=== PATIENT | male | born 1980 | race Caucasian/White ===

== ENCOUNTER 2020-02-06 01:46 | Outpatient (CLI) | payer BC, SELFPAY ==
[2020-02-06 18:20] LABS: SARS-CoV-2 RNA PCR Negative
== END 2020-02-06 01:47 | disposition home or self-care (01) ==
LOC: ANHCOVIDDT 01:46
PROVIDERS: PCP Internal Medicine; Visit Provider Surgery
DX: Z01.812 Encounter for preprocedural laboratory examination (principal); Z11.59 Encounter for screening for other viral diseases
CPT/HCPCS: 87635; C9803; U0003

== ENCOUNTER 2020-02-08 02:10 | Day surgery (SDC) | payer BC, SELFPAY ==
[2020-01-24 15:27] VITALS: BMI 36.1
--- NOTE | 2020-02-08 07:25 | WPDHPUPDATE1 ---
History and Physical Update Update Date/Time: 02/08/20 07:25 History and Physical has been reviewed, including an updated exam of the patient. There are NO changes in the patient's condition. Risks, benefits, and alternatives have been discussed and questions answered. Patient agrees to proceed with procedure.
[2020-02-08 08:19] VITALS: BP 145/88; PULSE 95; RESP 16; TEMP 37.1; O2SAT 100
[2020-02-08] MEDS: LACTATED RINGERS 1,000 ML 30 ML IV CONT ×2 (08:35→11:47)
[2020-02-08] MEDS: KETOROLAC 15 MG/ML VIAL (*BKC) IV PUSH (08:45)
[2020-02-08] MEDS: ACETAMINOPHEN 500 MG TABLET 1000 MG PO (08:45)
--- NOTE | 2020-02-08 08:49 | WPDANESEPPF ---
Anes - Initial Pre Proc Eval Procedure: Operation Date: 02/08/20 10:00 Proposed Procedures p Repair Umbilical Hernia With Mesh - Darrius Dupont MD Date/Time: 02/08/20 08:49 Surgeon: Darrius Dupont MD Pre Op Diagnosis: Umbilical Hernia Patient Data Age: 39 Gender: M Height: 6 ft 5 in Weight: 140 kg Last Vital Signs Temp 37.1 C 02/08/20 08:19 Pulse 95 02/08/20 08:19 Resp 16 02/08/20 08:19 BP 145/88 H 02/08/20 08:19 Pulse Ox 100 02/08/20 08:19 Allergies Allergy/AdvReac Type Severity Reaction Status Date / Time No Known Allergies Allergy Verified 01/24/20 15:28 Home Medications Medication Instructions Recorded Confirmed Type omeprazole 20 mg capsule,delayed 20 mg PO DAILY #90 cap 09/26/19 01/24/20 Rx release cetirizine 5 mg PO DAILY PRN 01/24/20 01/24/20 History Patient hx anesthesia problems: none Family hx anesthesia problems: none PMFSH Past Medical History Medical History GERD (gastroesophageal reflux disease) Surgical History Surgical History History of removal of skin mole [place] teeth extracted Family History Family History Mother Arthritis Grandparent , Age 81 Alzheimer disease Other Colon cancer Social History Social History Smoking packs per day: 0.75 Smoking cigarettes per day: 15.0 Years smoked: 8 Smoking pack-years: 6.00 Smoking status: Former smoker Tobacco type: cigarettes Additional smoking assessment comments: 16 YEARS AGO Alcohol intake: current Drinks per week: 28 Substance use: never Additional occupation/education comments: [employer] Spiritual care concerns: No Anes - Eval Final PreProcedure Day of Procedure 02/08/20 08:49 Patient weight: obese Heart: regular rate and rhythm Lungs: clear to auscultation Airway: Mallampati scale class 1 Neurological: alert and oriented Last oral intake: >/= 8 hours ASA classification: II Emergent: no Anesthetic plan: proceed Anesthesia type and monitoring: general GIVS and standard monitoring Informed Consent: The patient's anesthetic plan and its attendant risks and benefits were discussed with the patient/family/POA. Questions were solicited and answers provided to the satisfaction of the patient/family/POA.
--- NOTE | 2020-02-08 09:55 | P.OP_ITS ---
Procedure Note - Detailed Date of procedure: 02/08/20 Pre-op diagnosis: Umbilical Hernia Umbilical hernia Post-op diagnosis: same Procedure performed: Umbilical hernia repair with 6.6 cm Parietex underlay mesh Description of procedure: Patient was taken to the operating room and IV sedation was administered. Prep and drape was carried out. The proposed incision along the upper margin of the umbilicus was marked on the skin. Local anesthetic was infiltrated into the skin and the deeper subcutaneous tissues. Incision was made and dissection was carried down through the skin and to the hernia sac. The sac was then dissected free from the umbilical skin and the surrounding subcutaneous tissues. It was dissected down to its neck. Additional local anesthetic was infiltrated into the neck and the fascia surrounding the neck of the hernia sac. The sac was then amputated at its neck. The subcutaneous was undermined around the hernia defect. Additional local was infiltrated around the fascia. I placed a finger inside the hernia defect and checked for any abdominal wall adhesions in the area. None were found. No other hernias were noted. A 6.6 cm Parietex [place] was chosen. It was folded and placed in the defect. Once it symmetrically covered the defect, I placed cranial and caudal transfascial sutures of 0 Ethibond. These sutures were placed in such a fashion that, when tied, they would advance the edges of the hernia defect towards 1 another. These sutures were tied and had the desired effect. I also placed right and left lateral 0 Ethibond transfascial sutures to secure the mesh to the anterior abdominal wall in this dimension. I then closed the hernia defect with [id number] mattress sutures of 0 Ethibond. The repair looked quite satisfactory. I then infiltrated additional local all around the areas of the repair. The umbilical skin was tacked to the fascia with 3 0 Vicryl suture. The subcutaneous was closed with 3 0 Vicryl. Subcuticular interrupted 4 O Vicryl skin stitches were placed. The skin was then closed with running 4 0 Monocryl subcuticular suture. Wound was dressed with Exofin surgical adhesive. The patient was awakened and taken to recovery in good condition. Counts were correct x2. Implants: 6.6 cm Parietex hernia mesh Anesthesia: MAC and local (0.5% Marcaine with Exparel) Surgeon: Darrius Dupont MD Yarn Wrapper: Mei RachaelRadha Valladares Estimated blood loss (mL): 5 Drains: No Packing: No Pathology: none sent Complications: None Condition: stable Disposition: same day Findings: 20 millimeter hernia defect
[2020-02-08] MEDS: ceFAZolin 3 GM/D5W 100 ML 100 ML IVPB (10:31)
[2020-02-08 11:47] VITALS: BP 130/77; PULSE 82; RESP 16; TEMP 36.1; O2SAT 97
[2020-02-08 12:15] VITALS: BP 136/76; PULSE 79; RESP 16; O2SAT 99
[2020-02-08 12:40] VITALS: BP 142/83; PULSE 59; RESP 16
== END 2020-02-08 12:50 | disposition home or self-care (01) ==
PROVIDERS: PCP Internal Medicine; Visit Provider Surgery
PROC: (CPT 49585; principal; 2020-02-08 10:00)
DX: K42.9 Umbilical hernia without obstruction or gangrene (principal); K21.9 Gastro-esophageal reflux disease without esophagitis; Z87.891 Personal history of nicotine dependence; E66.9 Obesity, unspecified; Z68.36 Body mass index [BMI] 36.0-36.9, adult
CPT/HCPCS: 49585; A9270; C1781; C9290; J0690; J1885; J2250; J2405; J2704; J3010; J7120

== ENCOUNTER 2021-01-31 14:15 | Emergency (ER) | payer BC, SELFPAY ==
--- NOTE | ~2021-01-31 | CT_ITS ---
EXAMINATION: CTA chest PE protocol DATE: 01/31/2021 18:19 INDICATION: Dyspnea. Palpitations. TECHNIQUE: Computed tomography angiography (CTA) of the chest was performed with 100 mL Omnipaque-350 intravenous contrast timed to evaluate the pulmonary arteries. Coronal maximum intensity projection 3D-reconstructions were created by the technologist. Automated exposure control and iterative reconst ruction technique were employed. The dose-length product was 1106.50 mGy-cm. COMPARISON: None. FINDINGS: The lungs demonstrate mild atelectasis. No pleural effusion. The heart size is normal. Ther e are coronary artery calcifications. No pericardial effusion. There is no pulmonary embolus. There i s mild thoracic spondylosis. IMPRESSION: 1. No pulmonary embolus. Reviewed, dictated and finalized at location A. IMPRESSION: 1. No pulmonary embolus.
--- NOTE | ~2021-01-31 | XR_ITS ---
EXAMINATION: XR chest 2V DATE: 01/31/2021 14:36 INDICATION: Anterior left-sided chest pain and shortness of breath TECHNIQUE: PA and lateral views of the chest were obtained. COMPARISON: None FINDINGS: The lungs are clear with no focal airspace opacities, pulmonary edema, pleural effusion or pneumothor ax. The cardiomediastinal silhouette is normal. Thoracic spondylosis with mild anterior wedging of a midthoracic vertebral body, likely T7. IMPRESSION: 1. No acute cardiopulmonary disease. Reviewed, dictated and finalized at location A.
--- NOTE | 2021-01-31 14:21 | ECG_ITS ---
Measurements Intervals [place] Rate: 93 P: -2 ID: 104 QRS: 14 QRSD: 92 T: 9 QT: 332 QTc: 413 Interpretive Statements SINUS RHYTHM WITH SHORT ID INTERVAL EARLY PRECORDIAL R/S TRANSITION MINIMAL Q WAVES- HIGH LATERAL LEADS BORDERLINE T WAVE ABNORMALITY- INFERIOR LEADS BASELINE ARTIFACT- V4 BORDERLINE ECG Electronically Signed On 01-31-2021 14:37:31 CDT by Pedro Lloyd D.O.
[2021-01-31 14:44] VITALS: BP 169/112; PULSE 96; RESP 18; TEMP 37.1; O2SAT 99
[2021-01-31 15:08] LABS: Basophils Percent Auto 0.6 % (0.2-1.2); Eosinophils Absolute Auto 0.1 K/mm3 (0-0.3); Hematocrit 42.9 % (42.0-52.0); Hemoglobin 14.7 g/dL (14.0-18.0); Immature Granulocyte Absolute 0.04 K/mm3 (0.00-0.031); Immature Granulocyte Percent A 0.6 % (0-0.5); Lymphocytes Absolute Auto 1.94 K/mm3 (0.9-3.2); Mean Corpuscular HGB Conc 34.3 g/dl (32-36); Mean Corpuscular Hemoglobin 32.8 pg (26-34); Mean Corpuscular Volume 95.8 fl (80-100); Mean Platelet Volume 8.8 fl (7.4-10.4); Monocytes Absolute Auto 0.6 K/mm3 (0.1-0.6); Monocytes Percent Auto 7.8 % (2.6-8.5); Neutrophils Absolute Auto 4.5 K/mm3 (1.3-6.7); Platelet Count Result 272 k/mm3 (150-375); Red Blood Count 4.48 M/mm3 (4.6-6.20); Red Cell Distribution Width 11.9 % (11.5-14.5); White Blood Count 7.2 K/mm3 (4.5-10.0)
[2021-01-31 15:18] LABS: Anion Gap 7 mmol/L (8-16); Blood Urea Nitrogen 13 mg/dL (9-20); Calcium 9.3 mg/dL (8.4-10.2); Carbon Dioxide 27 mmol/L (22-30); Chloride 100 mmol/L (98-107); Estimated CRCL calculation 138 ml/min; Estimated Glomerular Filt Rate > 60; Glucose 102 mg/dL (65-110); Potassium 4.3 mmol/L (3.4-5.0); Sodium 134 mmol/L (137-145)
[2021-01-31 15:29] LABS: INR 0.9; Prothrombin Time 12.5 Seconds (11.1-14.7); Troponin I < 0.012 ng/mL (0.000-0.034)
[2021-01-31 15:30] LABS: Partial Thromboplastin Time 23.7 SECONDS (22.3-36.8)
--- NOTE | 2021-01-31 17:12 | ED.ARRPALP ---
HPI - Arrhythmia/Palpitations General Chief Complaint: Arrhythmia/Palpitations Stated Complaint: chest pressure Time Seen by Provider: 01/31/21 17:11 Source: patient and family Mode of arrival: ambulatory Limitations: no limitations History of Present Illness HPI narrative: Patient is a 40-year-old male who presents for evaluation of intermittent chest pain and palpitations. Patient states he has had symptoms over the past several days, states that he was suddenly experience palpitations, heaviness over his chest, back with radiation to both shoulders and both sides of his neck. With associated nausea and diaphoresis. Patient reports mild shortness of breath with these episodes as well. States they last for few minutes before resolving on their own. Patient is a previous smoker 15 years ago. No family history of sudden cardiac . Cardiac history notable for patient's grandfather who had a heart attack in his seventies. No siblings or parents with coronary artery disease per patient or his mother who is at bedside. Patient denies any recent viral illnesses. No recent fever, cough or cold symptoms. Patient states he presumes he may have had Covid several months ago as his mother, father, aunt all tested positive, but he tested quite late with his symptoms and had a negative test. He is vaccinated with a Victor Manuel [employer] Victor Manuel vaccine. Patient denies leg swelling or calf pain. He denies recent car or air travel. Patient states that he takes a daily aspirin because he read that this was good for him. He does not currently follow with a primary care provider. He does report an unintentional 15 pound weight gain over the past 2 weeks. Related Data Allergies Allergy/AdvReac Type Severity Reaction Status Date / Time No Known Allergies Allergy Verified 01/31/21 17:13 Review of Systems Review of Systems: CONSTITUTIONAL: Denies fever, chills, reports feeling sweaty EYES: Denies visual changes, redness, or discharge. ENT: Denies rhinorrhea, congestion, sore throat, or otalgia. CARDIOVASCULAR: Reports chest heaviness and palpitations RESPIRATORY: Denies cough, reports intermittent dyspnea GASTROINTESTINAL: Denies abdominal pain, nausea, vomiting, or diarrhea. GENITOURINARY: Denies dysuria or hematuria. SKIN: Denies rash or itching. MUSCULOSKELETAL: Denies back pain, joint pain, or myalgia. NEUROLOGIC: Denies headache, numbness, or weakness. [facility] Past Medical History Medical History (Updated 01/31/21 @ 18:57 by Lucy Umaña MD) GERD (gastroesophageal reflux disease) Surgical History Surgical History H/O umbilical hernia repair Umbilical hernia repair with 6.6cm Paritex underlay mesh 02/08/2020 History of removal of skin mole [place] teeth extracted Family History Family History Mother Arthritis Grandparent , Age 81 Alzheimer disease Other Colon cancer Social History Social History Smoking packs per day: 0.75 Smoking cigarettes per day: 15.0 Years smoked: 8 Smoking pack-years: 6.00 Smoking status: Former smoker Tobacco type: cigarettes Additional smoking assessment comments: 16 YEARS AGO Alcohol intake: current Drinks per week: 28 Alcohol use details: drinks 4 beers a day Substance use: never Additional occupation/education comments: [employer] Gender identity (if verbalized by the patient): Male Spiritual care concerns: No Exam Narrative: GENERAL: Awake, alert, conversant HEAD: Normocephalic, atraumatic. EYES: PERRLA and EOMI. ENT: Nares clear, no rhinorrhea or epistaxis. Mucous membranes moist. NECK: Supple. CHEST: No respiratory distress, breathing even and non labored, no chest wall tenderness HEART: Regular rate, sinus rhythm ABDOMEN:Non distended, non tender EXTREMITIES: Normal range of srinivasa
--- NOTE | 2021-01-31 17:25 | ECG_ITS ---
Measurements Intervals [place] Rate: 84 P: 12 MA: 123 QRS: 17 QRSD: 96 T: 15 QT: 347 QTc: 410 Interpretive Statements SINUS RHYTHM EARLY PRECORDIAL R/S TRANSITION BASELINE ARTIFACT- II, AVF, V1, V3-V6 BORDERLINE ECG Electronically Signed On 01-31-2021 19:54:14 CDT by Pedro Lloyd D.O.
[2021-01-31] MEDS: ASPIRIN 81 MG CHEWABLE TABLET 324 MG PO (17:35)
--- NOTE | 2021-01-31 17:48 | ECG_ITS ---
Measurements Intervals [place] Rate: 79 P: 10 ND: 121 QRS: 15 QRSD: 99 T: 9 QT: 352 QTc: 404 Interpretive Statements SINUS RHYTHM LEAD V3 MISPLACEMENT EARLY PRECORDIAL R/S TRANSITION BASELINE ARTIFACT- V3-V6 BORDERLINE ECG Electronically Signed On 01-31-2021 19:56:18 CDT by Pedro Lloyd D.O.
[2021-01-31 17:49] LABS: Troponin I < 0.012 ng/mL (0.000-0.034)
[2021-01-31 19:01] VITALS: BP 152/101; PULSE 96; RESP 16; O2SAT 100
[2021-01-31 19:18] VITALS: BP 144/107; PULSE 94; RESP 16; O2SAT 98
== END 2021-01-31 19:17 | disposition home or self-care (01) ==
PROVIDERS: General Practice; Emergency Provider Emergency Medicine; PCP Internal Medicine
DX: R07.89 Other chest pain (principal); R00.2 Palpitations; I10 Essential (primary) hypertension; K21.9 Gastro-esophageal reflux disease without esophagitis; Z87.891 Personal history of nicotine dependence; R94.31 Abnormal electrocardiogram [ECG] [EKG]
CPT/HCPCS: 36415; 71046; 71275; 80048; 84443; 84484; 85025; 85610; 85730; 93005; 99284; A9270; Q9967

== ENCOUNTER 2021-05-24 11:22 | Emergency (ER) | payer OTHER, BC, SELFPAY ==
[2021-05-24 11:38] VITALS: BP 139/99; PULSE 95; RESP 20; TEMP 36.8; O2SAT 100
[2021-05-24 11:40] VITALS: BP 139/99; PULSE 95; RESP 20; TEMP 36.8; O2SAT 100
--- NOTE | 2021-05-24 11:48 | ED.GENADULT ---
HPI - General Adult General Chief complaint: Wound/Laceration Stated complaint: CUT CHIN Time Seen by Provider: 05/24/21 11:49 Source: patient Mode of arrival: ambulatory Limitations: no limitations History of Present Illness HPI narrative: 41-year-old male patient presents to the [facility] with complaints of a laceration to the chin. 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 Patient unsure when his last tetanus shot was thinks is been longer than 5 years. Related Data Allergies Allergy/AdvReac Type Severity Reaction Status Date / Time No Known Allergies Allergy Verified 05/24/21 11:38 Review of Systems Review of Systems: CONSTITUTIONAL: Denies fever, chills, or sweats. EYES: Denies visual changes, redness, or discharge. ENT: Denies rhinorrhea, congestion, sore throat, or otalgia. CARDIOVASCULAR: Denies chest pain, palpitations, or edema. RESPIRATORY: Denies cough or dyspnea. GASTROINTESTINAL: Denies abdominal pain, nausea, vomiting, or diarrhea. GENITOURINARY: Denies dysuria or hematuria. SKIN: Denies rash or itching. Positive laceration to the chin MUSCULOSKELETAL: Denies back pain, joint pain, or myalgia. NEUROLOGIC: Denies headache, numbness, or weakness. PSYCHIATRIC: Denies anxiety or depression. [facility] Past Medical History Medical History (Updated 05/24/21 @ 12:31 by MJ Leonardo) GERD (gastroesophageal reflux disease) Surgical History Surgical History H/O umbilical hernia repair Umbilical hernia repair with 6.6cm Paritex underlay mesh 02/08/2020 History of removal of skin mole [place] teeth extracted Family History Family History Mother Arthritis Grandparent , Age 81 Alzheimer disease Other Colon cancer Social History Social History Smoking packs per day: 0.75 Smoking cigarettes per day: 15.0 Years smoked: 8 Smoking pack-years: 6.00 Smoking status: Never smoker Tobacco type: cigarettes Additional smoking assessment comments: 16 YEARS AGO Alcohol intake: current Drinks per week: 28 Alcohol use details: drinks 4 beers a day Substance use: never Additional occupation/education comments: [employer] Gender identity (if verbalized by the patient): Male Spiritual care concerns: No Comments At the time of my signature I agree with nursing past medical history, surgical, social, and family history. There is no relevant family history pertinent to the presenting complaint. Exam Narrative: GENERAL: Well-appearing, well-nourished, and in no acute distress. HEAD: Normocephalic, atraumatic. EYES: PERRLA and EOMI. ENT: Nares clear, no rhinorrhea or epistaxis. Mucous membranes moist. NECK: Supple. No lymphadenopathy CHEST: Clear to auscultation. No respiratory distress. HEART: Regular rate and rhythm. No murmur heard. Normal peripheral pulses. ABDOMEN: Soft, nontender, nondistended, normal active bowel sounds. EXTREMITIES: Normal range of motion. No edema. SKIN: Warm, dry, no rash. Patient has approximately 2.5 cm laceration vertically to the middle of the chin. There is a gaping open wound. No active bleeding at this time. Patient's range of motion of the chin is normal. NEURO: No focal deficits. Alert and oriented x3. Course Vital Signs Vital signs: Vital Signs Temperature 36.8 C 05/24/21 11:38 Pulse Rate 95 05/24/21 11:38 Respiratory Rate 20 05/24/21 11:38 Blood Pressure 139/99 H 05/24/21 11:38 Pulse Oximetry 100 05/24/21 11:38 Temperature 36.8 C 05/24/21 11:40 Pulse Rate 95 05/24/21 11:40 Respiratory Rate 20 05/24/21 11:40 Blood Pressure 139/99 H 05/24/21 11:40 Pulse Oximetry 100 05/24/21 11:40 Vital signs reviewed. The patient has been informed that they may have pre-hypertensi
[2021-05-24] MEDS: TETANUS,DIPHTHERIA,AC PERTUSSIS ADULT (0.5 ML) BOOSTRIX IM (11:55)
== END 2021-05-24 12:32 | disposition home or self-care (01) ==
PROVIDERS: Emergency Provider Nurse Practitioner Family
DX: S01.81XA Laceration without foreign body of other part of head, initial encounter (principal); W22.8XXA Striking against or struck by other objects, initial encounter; Z23 Encounter for immunization; Z87.891 Personal history of nicotine dependence; K21.9 Gastro-esophageal reflux disease without esophagitis
CPT/HCPCS: 12011; 90471; 90715; 99212; G0463

== ENCOUNTER 2021-06-03 10:53 | Emergency (ER) | payer BC, SELFPAY ==
--- NOTE | ~2021-06-03 | XR_ITS ---
EXAMINATION: XR knee LT min 4V DATE: 06/03/2021 11:27 INDICATION: Left knee injury and pain. TECHNIQUE: 4 views of left knee were obtained. COMPARISON: None. FINDINGS: Bone alignment is normal. No fracture. There is mild tricompartmental osteoarthritis charac terized by tiny marginal osteophytes. No joint space narrowing. No knee joint effusion. IMPRESSION: 1. Mild left knee osteoarthritis. Reviewed, dictated and finalized at location A. CH CREDIT COUNSELOR
[2021-06-03 11:03] VITALS: BP 152/96; PULSE 103; RESP 18; TEMP 36.8; O2SAT 99
--- NOTE | 2021-06-03 11:08 | ED.LOWEXIN ---
HPI - Extremity Injury (Lower) General Chief Complaint: Extremity Injury, Lower Stated Complaint: Left Knee Pain Time Seen by Provider: 06/03/21 11:10 Source: patient, RN notes reviewed and old records reviewed Mode of arrival: ambulatory Limitations: no limitations History of Present Illness HPI Narrative: 41-year-old male presents to the [facility] with complaints of left knee pain for about 1 1/2 weeks. Patient states he fell but a week and a half ago and continues to have pain in the medial aspect left knee. Has full range of motion. No bruising or swelling noted. Tender along the medial joint. Denies any other symptoms. Related Data Allergies Allergy/AdvReac Type Severity Reaction Status Date / Time No Known Allergies Allergy Verified 06/03/21 11:37 Review of Systems Review of Systems: All systems reviewed & are unremarkable except as noted in HPI and below Constitutional: Constitutional: Reports no additional constitutional complaints, Denies chills and Denies fever(s) Eyes: Eyes: Reports no additional eye complaints ENT: Reports system reviewed and no additional complaints, except as documented Cardiovascular: Cardiovascular: Reports no additional cardiovascular complaints and Denies chest pain Respiratory: Respiratory: Reports no additional respiratory complaints Musculoskeletal: Musculoskeletal: Reports as per HPI and Reports arthralgias (Left knee) Comments: Left knee medial aspect Integumentary/Breasts: Skin/Breast: Reports system reviewed and no additional complaints, except as docu Neurologic: Reports system reviewed and no additional complaints, except as documented Psychiatric: Psychiatric: Reports no additional psychiatric complaints Allergic/Immunologic: Allergic/Immunologic: Reports no additional allergic/immunologic complaints PMFSH Past Medical History Medical History (Updated 06/03/21 @ 11:41 by Ashley Rm) GERD (gastroesophageal reflux disease) Surgical History Surgical History H/O umbilical hernia repair Umbilical hernia repair with 6.6cm Paritex underlay mesh 02/08/2020 History of removal of skin mole [place] teeth extracted Family History Family History Mother Arthritis Grandparent , Age 81 Alzheimer disease Other Colon cancer Social History Social History Smoking packs per day: 0.75 Smoking cigarettes per day: 15.0 Years smoked: 8 Smoking pack-years: 6.00 Smoking status: Never smoker Tobacco type: cigarettes Additional smoking assessment comments: 16 YEARS AGO Alcohol intake: current Drinks per week: 28 Alcohol use details: drinks 4 beers a day Substance use: never Additional occupation/education comments: automotive tech Gender identity (if verbalized by the patient): Male Spiritual care concerns: No Comments At the time of my signature, I reviewed and agree with the nursing past medical, surgical, social, and family history. There is no relevant family history pertinent to the patient complaint. Exam Const: General: healthy appearing, no acute distress and alert Nutritional Appearance: well nourished and obese Orientation/consciousness: patient oriented x3 Limitations: no limitations HENMT: Head: normal to inspection Ears: external ears normal Eyes: Pupils: Equal, round and reactive pupils present Neck: Neck: normal visual inspection, no lymphadenopathy and no meningeal signs Chest: Chest palpation & inspection: normal inspection of the chest Resp: Effort & Inspection: normal respiratory effort Cardio: Rate: regular rate Rhythm: regular rhythm Back/Spine/Pelvis: Back: no CVA tenderness Skin: General skin exam: normal color Rashes: no rashes Wounds: no wounds Neuro: General: patient oriented x3, moves all extremities, no meningeal signs and n
== END 2021-06-03 11:50 | disposition home or self-care (01) ==
PROVIDERS: Emergency Provider Nurse Practitioner
DX: S89.92XA Unspecified injury of left lower leg, initial encounter (principal); F17.210 Nicotine dependence, cigarettes, uncomplicated; W19.XXXA Unspecified fall, initial encounter
CPT/HCPCS: 73564; 99213; G0463

== ENCOUNTER 2021-12-27 17:17 | Emergency (ER) | payer OTHER, SELFPAY ==
[2021-12-27 17:44] VITALS: BP 141/90; PULSE 99; RESP 16; TEMP 36.7; O2SAT 99
[2021-12-27] MEDS: KETOROLAC 30 MG/ML VIAL (*BKC) IV PUSH (21:34)
[2021-12-27] MEDS: SODIUM CHLORIDE 0.9% IV 1,000 ML 999 ML IV CONT (21:34)
[2021-12-27] MEDS: diphenhydrAMINE HCl INJ 50 MG/ML VIAL 25 MG IV PUSH (21:35)
[2021-12-27] MEDS: METOCLOPRAMIDE HCL INJ 10 MG/2 ML VIAL IV PUSH (21:39)
--- NOTE | 2021-12-27 22:31 | ED.HA ---
HPI - Headache General Chief Complaint: Headache Stated Complaint: headache x 2 day Time Seen by Provider: 12/27/21 19:26 History of Present Illness HPI Narrative: Patient is a 41-year-old male who presents ER with headache. Left-sided. Throbbing. Located in the parietal region. Steadily worsening over the last 2 days. No fevers or chills or sweats. No sinus congestion or sore throat or productive cough. No trauma. Denies any numbness or weakness or tingling to the arms or legs. Has some chronic tingling in his right arm due to cubital tunnel syndrome. Endorses some photophobia. No photophobia. Has history of headaches in the past but no formal diagnosis of migraine. Related Data Allergies Allergy/AdvReac Type Severity Reaction Status Date / Time No Known Allergies Allergy Verified 12/16/21 09:43 Review of Systems Review of Systems: All systems reviewed & are unremarkable except as noted in HPI and below Constitutional: Constitutional: Denies chills and Denies fever(s) Eyes: Eyes: Denies change in vision ENT: Denies nasal congestion and Denies sore throat Cardiovascular: Cardiovascular: Denies chest pain and Denies radiating jaw, neck or arm pain Gastrointestinal: Gastrointestinal: Denies abdominal pain, Denies nausea and Denies vomiting Neurologic: Denies syncope, Reports headache(s), Denies focal weakness and Denies numbness PMFSH Past Medical History Medical History (Updated 12/27/21 @ 22:33 by Shyam Crawford MD) GERD (gastroesophageal reflux disease) Surgical History Surgical History H/O umbilical hernia repair Umbilical hernia repair with 6.6cm Paritex underlay mesh 02/08/2020 History of removal of skin mole [place] teeth extracted Family History Family History Mother Arthritis Grandparent , Age 81 Alzheimer disease Other Colon cancer Social History Social History Smoking packs per day: 0.75 Smoking cigarettes per day: 15.0 Years smoked: 8 Smoking pack-years: 6.00 Smoking status: Never smoker Tobacco type: cigarettes Additional smoking assessment comments: 16 YEARS AGO Alcohol intake: current Drinks per week: 28 Alcohol use details: drinks 4 beers a day Substance use: never Additional occupation/education comments: automotive tech Gender identity (if verbalized by the patient): Male Spiritual care concerns: No Exam Narrative: GENERAL: Well-appearing, well-nourished, and in no acute distress. HEAD: Normocephalic, atraumatic. CHEST: Clear to auscultation. No respiratory distress. HEART: Regular rate and rhythm. Normal peripheral pulses. EXTREMITIES: Normal range of motion. No edema.-Ambulatory without issue. SKIN: Warm, dry, no rash. NEURO: Alert and oriented x3. PSYCH: Normal mood and affect. Course Course Emergency Course: Patient resting comfortably. Improved with Reglan/Benadryl/Toradol/fluids. No thunderclap component, no neurologic deficit. Do not feel patient needs a CT scan. Not concerning for meningitis. Vital Signs Vital signs: Vital Signs Temperature 98.1 F 12/27/21 17:44 Pulse Rate 99 12/27/21 17:44 Respiratory Rate 16 12/27/21 17:44 Blood Pressure 141/90 H 12/27/21 17:44 Pulse Oximetry 99 12/27/21 17:44 Oxygen Delivery Room Air 12/27/21 17:44 Temperature 98.1 F 12/27/21 17:44 Pulse Rate 99 12/27/21 17:44 Respiratory Rate 16 12/27/21 17:44 Blood Pressure 141/90 H 12/27/21 17:44 Pulse Oximetry 99 12/27/21 17:44 Oxygen Delivery Room Air 12/27/21 17:44 Discharge Plan Discharge Clinical Impression: Headache Patient Disposition: Home, Self-Care Condition: Stable Instructions: Tension Headache (ED) Additional Instructions: Return the ER if you have fever over 100.4 ?F, you have focal wea
[2021-12-27 22:58] VITALS: BP 138/82; PULSE 92; RESP 16; O2SAT 100
== END 2021-12-27 23:02 | disposition home or self-care (01) ==
PROVIDERS: Emergency Provider Emergency Medicine; PCP Family Medicine
DX: R51.9 Headache, unspecified (principal)
CPT/HCPCS: 96361; 96374; 96375; 99284; J1200; J1885; J2765; J7030

== ENCOUNTER → 2022-08-26 11:51 | Outpatient (CLI) | payer OTHER, SELFPAY ==
--- NOTE | ~2022-08-26 | XR_ITS ---
Cervical Spine: AP and open-mouth views, and and lateral views with neutral, flexion, and extension p ositioning Clinical History: Pain Findings: The normal lordotic curve is maintained. The vertebral bodies and posterior elements appea r intact. No instability seen on flexion or extension. The intervertebral disc spaces are well mainta ined. Pre-vertebral soft tissues are unremarkable. Impression: No significant abnormality is seen. Reviewed, dictated and finalized at location M. BING ENGINEERING DRAFTSPERSON Impression: No significant abnormality is seen.
== END ==
PROVIDERS: PCP Family Medicine; Visit Provider Family Medicine
DX: M54.2 Cervicalgia (principal)
CPT/HCPCS: 72050

== ENCOUNTER 2022-08-26 12:36 | Outpatient (CLI) | payer OTHER, SELFPAY ==
[2022-08-26 19:28] LABS: Alanine Aminotransferase 36 U/L (6-50); Albumin Level 4.8 g/dL (3.5-5.1); Alkaline Phosphatase 61 U/L (38-126); Anion Gap 8 mmol/L (8-16); Aspartate Amino Transferase 66 U/L (17-59); Bilirubin,Total 0.9 mg/dL (0.2-1.3); Blood Urea Nitrogen 20 mg/dL (9-20); Calcium 9.1 mg/dL (8.4-10.2); Carbon Dioxide 28 mmol/L (22-30); Chloride 99 mmol/L (98-107); Cholesterol 217 mg/dL (0-200); Estimated Glomerular Filt Rate > 60; Glucose 95 mg/dL (65-110); HDL Direct 58 mg/dL; LDL Cholesterol Direct 88 mg/dL; Potassium 4.1 mmol/L (3.4-5.0); Sodium 135 mmol/L (137-145); Triglycerides 335 mg/dL (<150)
== END 2022-08-26 12:37 | disposition home or self-care (01) ==
LOC: ANHGOSHLAB 12:37
PROVIDERS: PCP Family Medicine; Visit Provider Internal Medicine Cardiovascular Disease
DX: E78.00 Pure hypercholesterolemia, unspecified (principal)
CPT/HCPCS: 36415; 80053; 80061

== ENCOUNTER 2022-09-09 13:15 | Emergency (ER) | payer OTHER, SELFPAY ==
[2022-09-09] VITALS (11 sets, daily range): BP systolic 149–165; BP diastolic 91–104; PULSE 91–101; RESP 14–25; TEMP 36.8–37.1; O2SAT 98–100
--- NOTE | ~2022-09-09 | XR_ITS ---
EXAMINATION: XR chest 2V DATE: 09/09/2022 14:55 INDICATION: Palpitations. TECHNIQUE: Frontal and lateral views of the chest were obtained. COMPARISON: Chest 2 views 01/31/2021, chest CT 01/31/2021 FINDINGS: The chest demonstrates clear lungs without pneumonia, pleural effusion, or pneumothorax. Th e heart size is normal. IMPRESSION: 1. No acute cardiopulmonary disease. Reviewed, dictated and finalized at location A.
--- NOTE | 2022-09-09 13:50 | ECG_ITS ---
Measurements Intervals [place] Rate: 95 P: 14 MO: 135 QRS: 12 QRSD: 94 T: 3 QT: 333 QTc: 420 Interpretive Statements SINUS RHYTHM WITH SHORT MO INTERVAL BORDERLINE ST-T WAVE ABNORMALITY- ANTEROSEPTAL/INF LEADS BASELINE WANDER- V1 BORDERLINE ECG COMPARED TO ECG 01/31/2021 17:56:41 ST (T WAVE) DEVIATION NOW PRESENT Electronically Signed On 09-09-2022 14:03:47 CDT by Pedro Lloyd D.O.
[2022-09-09 14:04] LABS: Basophils Percent Auto 0.5 % (0.2-1.2); Eosinophils Absolute Auto 0.1 K/mm3 (0-0.3); Eosinophils Percent Auto 0.6 % (0-4.4); Hematocrit 42.1 % (42.0-52.0); Hemoglobin 14.3 g/dL (14.0-18.0); Immature Granulocyte Absolute 0.02 K/mm3 (0.00-0.031); Immature Granulocyte Percent A 0.3 % (0-0.5); Lymphocytes Absolute Auto 2.38 K/mm3 (0.9-3.2); Lymphocytes Percent Auto 29.8 % (18.3-44.2); Mean Corpuscular Hemoglobin 32.8 pg (26-34); Mean Corpuscular Volume 96.6 fl (80-100); Mean Platelet Volume 8.9 fl (7.4-10.4); Monocytes Absolute Auto 0.4 K/mm3 (0.1-0.6); Monocytes Percent Auto 4.8 % (2.6-8.5); Neutrophils Absolute Auto 5.1 K/mm3 (1.3-6.7); Platelet Count Result 277 k/mm3 (150-375); Red Blood Count 4.36 M/mm3 (4.6-6.20); Red Cell Distribution Width 12.3 % (11.5-14.5)
[2022-09-09 14:15] LABS: INR 1.1; Partial Thromboplastin Time 23.8 SECONDS (22.3-36.8); Prothrombin Time 13.5 Seconds (11.1-14.7)
[2022-09-09 14:16] LABS: Alanine Aminotransferase 45 U/L (6-50); Albumin Level 4.9 g/dL (3.5-5.1); Alkaline Phosphatase 70 U/L (38-126); Anion Gap 11 mmol/L (8-16); Aspartate Amino Transferase 58 U/L (17-59); Bilirubin,Total 0.8 mg/dL (0.2-1.3); Blood Urea Nitrogen 18 mg/dL (9-20); Carbon Dioxide 24 mmol/L (22-30); Chloride 105 mmol/L (98-107); Estimated CRCL calculation 146 ml/min; Estimated Glomerular Filt Rate > 60; Glucose 107 mg/dL (65-110); Lipase 138 U/L (23-300); Potassium 4.1 mmol/L (3.4-5.0); Sodium 140 mmol/L (137-145)
[2022-09-09 14:27] LABS: Troponin I < 0.012 ng/mL (0.000-0.034)
--- NOTE | 2022-09-09 17:37 | PC.NURSE ---
Dr Duong at bedside. No need for protocol aspirin at this time. Pt prefers not to receive IVF at this time.
--- NOTE | 2022-09-09 17:52 | ED.GENADULT ---
HPI - General Adult General Chief complaint: Arrhythmia/Palpitations Stated complaint: Fast heart rate Time Seen by Provider: 09/09/22 17:15 History of Present Illness HPI narrative: 42-year-old male presented to the emergency department for evaluation of rapid heart rate. Patient reports he did have a Holter monitor 1 month ago and did have an episode of SVT. Patient states that over the last few days he has had the sensation of heart palpitations and increased adrenaline. Patient states that he does drink 1/5 of alcohol over a 2-day. Patient states that he did have a monster drink yesterday prior to symptoms starting. Related Data Allergies Allergy/AdvReac Type Severity Reaction Status Date / Time No Known Allergies Allergy Verified 09/09/22 17:24 Review of Systems Review of Systems: All systems reviewed & are unremarkable except as noted in HPI and below PMFSH Past Medical History Medical History (Updated 09/10/22 @ 00:00 by Malissa Gonzalez) GERD (gastroesophageal reflux disease) Surgical History Surgical History H/O umbilical hernia repair Umbilical hernia repair with 6.6cm Paritex underlay mesh 02/08/2020 History of removal of skin mole [place] teeth extracted Family History Family History Mother Arthritis Grandparent , Age 81 Alzheimer disease Other Colon cancer Social History Social History Smoking packs per day: 0.75 Smoking cigarettes per day: 15.0 Years smoked: 8 Smoking pack-years: 6.00 Smoking status: Never smoker Tobacco type: cigarettes Additional smoking assessment comments: 16 YEARS AGO Alcohol intake: current Drinks per week: 28 Alcohol use details: drinks 4 beers a day Substance use: never Lack of Transportation: No Lack of Food: Never True Current Housing: I Have Housing Concerned About Future Housing: No Difficulty Paying Gas/Electric Bills: No Difficulty Paying for Meds: No Currently Unemployed: No Education: Trade/Vocational Certificate Difficulty w/ Childcare or Family Care: No Living arrangements: alone Occupation/Education: occupation Additional occupation/education comments: [employer] Gender identity (if verbalized by the patient): Male Spiritual care concerns: No Exam Narrative: APPEARANCE: Well appearing, no pain, no distress, well-nourished. HEAD: normocephalic, atraumatic. EYES: PERRLA/EOMI, conjunctivae clear. NOSE: Normal no drainage NECK: Supple. No adenopathy, no masses. RESPIRATORY: Airway patent, respirations nonlabored. Clear to auscultation bilaterally, no rales, rhonchi, wheezing. CARDIOVASCULAR: Regular rate and rhythm without murmurs rubs or gallops. Tachycardic was improved upon arrival to the ED. ABDOMINAL: Soft, nontender, nondistended, normal bowel sounds MUSCULOSKELETAL: Moves all extremities. Strength/ROM intact, No edema, No calf tenderness. NEURO: Alert. Cranial nerves II through XII intact. Grossly intact SKIN: Warm, dry. Normal Color Course Course Emergency Course: 42-year-old male presented to the ED with evaluation of heart palpitations. Patient was mildly tachycardic but patient declined IV fluids. Patient was afebrile with no leukocytosis but hemoglobin is stable. Patient electrolytes were within normal limits. Patient had negative serial troponins. Chest x-ray showed no acute cardiopulmonary abnormality. He was encouraged to refrain from energy drinks and caffeine. Patient was encouraged to drink more water. Patient was also encouraged of close follow-up with his primary care physician. All questions and concerns were addressed. Vital Signs Vital signs: Vital Signs Temperature 98.8 F 09/09/22 13:44 Pulse Rate 100 09/09/22 13:44 Respiratory Rate 14 09/09/22 13:44 Blood Pressure 165/99
[2022-09-09 17:53] LABS: Troponin I < 0.012 ng/mL (0.000-0.034)
== END 2022-09-09 18:30 | disposition home or self-care (01) ==
PROVIDERS: Emergency Provider Emergency Medicine; PCP Family Medicine
DX: R00.2 Palpitations (principal); K21.9 Gastro-esophageal reflux disease without esophagitis; F17.210 Nicotine dependence, cigarettes, uncomplicated; R94.31 Abnormal electrocardiogram [ECG] [EKG]
CPT/HCPCS: 36415; 71046; 80053; 83690; 84484; 85025; 85610; 85730; 93005; 99283; 99284

== ENCOUNTER → 2022-10-24 14:21 | Outpatient (CLI) | payer OTHER, SELFPAY ==
--- NOTE | ~2022-10-24 | MR_ITS ---
EXAMINATION: MR brain/brain stem wo con DATE: 10/24/2022 15:04 INDICATION: Headache. TECHNIQUE: Magnetic resonance imaging (MRI) of the brain and brainstem was performed without intraven ous contrast. COMPARISON: None. FINDINGS: There is no intracranial hemorrhage, acute infarction, or abnormal intracranial mass lesion . The ventricles are normal in size. The orbits are normal. The mastoid air cells are normal. The par anasal sinuses are clear. IMPRESSION: 1. Normal brain. Reviewed, dictated and finalized at location E. IMPRESSION: 1. Normal brain.
== END ==
PROVIDERS: PCP Family Medicine; Visit Provider Family Medicine
DX: R51.9 Headache, unspecified (principal)
CPT/HCPCS: 70551

== ENCOUNTER → 2022-12-08 07:29 | Outpatient (CLI) | payer OTHER, SELFPAY ==
--- NOTE | ~2022-12-08 | MR_ITS ---
EXAMINATION: MR cervical spine wo con DATE: 12/08/2022 08:02 INDICATION: Cervical radiculopathy. TECHNIQUE: Magnetic resonance imaging (MRI) of the cervical spine was performed without intravenous c ontrast. COMPARISON: Cervical spine radiographs 08/26/2022 FINDINGS: Bone alignment is normal. Vertebral body heights and intervertebral disc heights are normal . The spinal cord signal intensity is normal. The following disc levels are specifically discussed: C2-C3: The disc does not extend beyond the endplate margin. There is no uncovertebral joint osteoarth ritis. There is mild right and severe left facet joint osteoarthritis. There is mild left neural fora augie stenosis. There is no central canal stenosis. C3-C4: There is a central protrusion. There is moderate right and mild left uncovertebral joint osteo arthritis. There is mild bilateral facet joint osteoarthritis. There is mild right neural foraminal s tenosis. There is no central canal stenosis. C4-C5: There is a central protrusion. There is mild left uncovertebral joint osteoarthritis. There is moderate bilateral facet joint osteoarthritis. There is mild left neural foraminal stenosis. There i s no central canal stenosis. C5-C6: The disc is bulging. There is mild left uncovertebral joint osteoarthritis. There is mild bila teral facet joint osteoarthritis. There is no neural foraminal stenosis. There is mild central canal stenosis. C6-C7: There is a central protrusion. There is mild right and moderate left uncovertebral joint osteo arthritis. There is mild right facet joint osteoarthritis. There is mild left neural foraminal stenos is. There is mild central canal stenosis. C7-T1: The disc does not extend beyond the endplate margin. There is no uncovertebral joint osteoarth ritis. There is moderate right and mild left facet joint osteoarthritis. There is no neural foraminal stenosis. There is no central canal stenosis. IMPRESSION: 1. Mild cervical spondylosis. Reviewed, dictated and finalized at location A.
== END ==
PROVIDERS: PCP Family Medicine; Visit Provider Orthopaedic Surgery
DX: M54.12 Radiculopathy, cervical region (principal); M43.02 Spondylolysis, cervical region
CPT/HCPCS: 72141

== ENCOUNTER 2022-12-19 13:21 | Emergency (ER) | payer OTHER, SELFPAY ==
[2022-12-19] VITALS (13 sets, daily range): BP systolic 137–157; BP diastolic 93–106; PULSE 86–98; RESP 16–18; TEMP 36.2–36.8; O2SAT 94–100
--- NOTE | 2022-12-19 13:34 | PC.NURSE ---
States that he has been having headaches off and on for a couple of weeks. States that he had an MRI 12/08 and since then the headaches have been increasing in severity. States it starts about an hour after waking up and starts getting a pressure around his head. States today the pain seems to be in the back of his head and radiating down the left side and into his neck and back. Pt denies any photophobia. Denies CP. Currently denies n/v/d.
[2022-12-19] MEDS: diphenhydrAMINE HCl INJ 50 MG/ML VIAL 25 MG IV PUSH (14:14)
[2022-12-19] MEDS: LIDOCAINE 5% PATCH 1 PATCH TRANSDERM (14:15)
[2022-12-19] MEDS: KETOROLAC 30 MG/ML VIAL (*BKC) IV PUSH (14:15)
[2022-12-19] MEDS: PROCHLORPERAZINE EDISYLATE 10 MG/2 ML VIAL IV PUSH (14:15)
--- NOTE | 2022-12-19 14:17 | ED.HA ---
HPI - Headache General Chief Complaint: Headache Stated Complaint: migraine Time Seen by Provider: 12/19/22 13:35 History of Present Illness HPI Narrative: This is a 49-year-old male, with past history of hypertension and hyperlipidemia, presents emergency department complaining of headache for the past 5 days. He describes the pain as burning located over the posterior proximal neck and tension, band-like headache, rated 6/10. The patient states he underwent MRI of the brain in September that was unremarkable. He also underwent MRI of the cervical spine approximately 1 week ago demonstrated mild cervical spondylosis. He denies other weakness, numbness, change/loss of vision/hearing, or loss of consciousness. Related Data Home Medications Medication Instructions Recorded Confirmed omega 9-bfi-kqt-fish oil 1,000 mg 1 cap PO BID 11/12/22 11/26/22 (120 mg-180 mg) capsule (Fish Oil) Allergies Allergy/AdvReac Type Severity Reaction Status Date / Time No Known Allergies Allergy Verified 12/19/22 13:30 Review of Systems Review of Systems: CONSTITUTIONAL: Denies fever, chills, or sweats. EYES: Denies visual changes, redness, or discharge. CARDIOVASCULAR: Denies chest pain, palpitations, or edema. RESPIRATORY: Denies cough or dyspnea. GASTROINTESTINAL: Denies abdominal pain, nausea, vomiting, or diarrhea. GENITOURINARY: Denies dysuria or hematuria. SKIN: Denies rash or itching. MUSCULOSKELETAL: Denies back pain, joint pain, or myalgia. NEUROLOGIC: Headache, phobia denies numbness, dizziness, or weakness. PSYCHIATRIC: Denies anxiety or depression. [facility] Past Medical History Medical History (Updated 12/19/22 @ 14:27 by Sam Betancur MD) GERD (gastroesophageal reflux disease) Surgical History Surgical History H/O umbilical hernia repair Umbilical hernia repair with 6.6cm Paritex underlay mesh 02/08/2020 History of removal of skin mole [place] teeth extracted Family History Family History Mother Arthritis Grandparent , Age 81 Alzheimer disease Other Colon cancer Social History Social History Smoking packs per day: 0.75 Smoking cigarettes per day: 15.0 Years smoked: 8 Smoking pack-years: 6.00 Smoking status: Never smoker Tobacco type: cigarettes Additional smoking assessment comments: 16 YEARS AGO Alcohol intake: current Drinks per week: 28 Alcohol use details: drinks 4 beers a day and shots of vodka Substance use: never Lack of Transportation: No Lack of Food: Never True Current Housing: I Have Housing Concerned About Future Housing: No Difficulty Paying Gas/Electric Bills: No Difficulty Paying for Meds: No Currently Unemployed: No Education: Trade/Vocational Certificate Difficulty w/ Childcare or Family Care: No Living arrangements: alone Occupation/Education: occupation Additional occupation/education comments: [employer] Gender identity (if verbalized by the patient): Male Spiritual care concerns: No Exam Narrative: GENERAL: Well-developed, well-nourished, and in no acute distress. HEAD: Normocephalic, atraumatic. EYES: PERRLA and EOMI. CHEST: Clear to auscultation. No respiratory distress. No wheezes rales or rhonchi HEART: Regular rate and rhythm. No murmur heard. Normal peripheral pulses. ABDOMEN: Soft, nontender, nondistended, normal active bowel sounds. EXTREMITIES: Normal range of motion. No edema. SKIN: Warm, dry, no rash. NEURO: No focal deficits. Alert and oriented x3. Strength 5/5 in all extremities, sensation intact bilaterally. No noted ataxia PSYCH: Normal mood and affect. Course Course Emergency Course: 15:57 - On reevaluation, the patient states his headache is improved. Will discharge with primary care follow-up. [place]
[2022-12-19] MEDS: SODIUM CHLORIDE 0.9% IV 500 ML 999 ML IV CONT (14:19)
== END 2022-12-19 16:13 | disposition home or self-care (01) ==
PROVIDERS: Emergency Provider Preventive Medicine Aerospace Medicine; PCP Family Medicine
DX: R51.9 Headache, unspecified (principal); I10 Essential (primary) hypertension; E78.5 Hyperlipidemia, unspecified; K21.9 Gastro-esophageal reflux disease without esophagitis; Z87.891 Personal history of nicotine dependence
CPT/HCPCS: 96361; 96374; 96375; 99284; A9270; J0780; J1200; J1885; J7040

== ENCOUNTER 2022-12-22 09:56 | Outpatient (CLI) | payer OTHER, SELFPAY ==
--- NOTE | 2022-12-22 10:21 | EST_ITS ---
Patient Info Name: Ernst Lobo Age: 42 years : 1980 Gender: Male Ht: 76 in Wt: 310 lbs BSA: 2.79 m2 HR: 89 bpm BP: 133 / 91 mmHg Heart Rhythm: Sinus Rhythm Exam Date: 12/22/2022 10:33 AM Exam Location: [facility] Stress Patient Status: Outpatient Admit Date: 12/22/2022 Staff Ordering Physician: Perdo Lloyd DO Attending Provider: Pedro Lloyd DO Exercise Technologist: Brandie Granger CT Exercise Physician: Pedro Lloyd DO Exam Type: CA stress test treadmill Study Info Indications M79.629 - Pain in unspecified upper arm A treadmill exercise stress test was performed. Summary 1. 1. Negative [place] exercise stress test for ischemic ST changes by ECG criteria. 2. 2. Reduced functional capacity, achieving 7 METs of workload. 3. 3. Appropriate HR response to exercise. 4. 4. Appropriate HR recovery at 1 minute post exercise. 5. 5. No imaging with stress testing. 6. 6. Patient informed of the above results. Protocol: [place] Stress ECG Details Stage: REST Duration (min): 0 min : 45 sec Speed (mph): 0.0 Grade (%): 0 HR (bpm): 90 SBP (mmHg): 133 DBP (mmHg): 91 METS: --- Stage: REST Duration (min): 8 min : 20 sec Speed (mph): 0.0 Grade (%): 0 HR (bpm): 95 SBP (mmHg): 133 DBP (mmHg): 91 METS: --- Stage: STAGE 1 Duration (min): 1 min : 0 sec Speed (mph): 1.7 Grade (%): 10 HR (bpm): 121 SBP (mmHg): 133 DBP (mmHg): 91 METS: --- Stage: STAGE 1 Duration (min): 2 min : 0 sec Speed (mph): 1.7 Grade (%): 10 HR (bpm): 141 SBP (mmHg): 133 DBP (mmHg): 91 METS: --- Stage: STAGE 1 Duration (min): 3 min : 0 sec Speed (mph): 1.7 Grade (%): 10 HR (bpm): 143 SBP (mmHg): 158 DBP (mmHg): 92 METS: --- Stage: STAGE 2 Duration (min): 1 min : 0 sec Speed (mph): 2.5 Grade (%): 12 HR (bpm): 150 SBP (mmHg): 158 DBP (mmHg): 92 METS: --- Stage: STAGE 2 Duration (min): 2 min : 0 sec Speed (mph): 2.5 Grade (%): 12 HR (bpm): 158 SBP (mmHg): 155 DBP (mmHg): 95 METS: --- Stage: STAGE 2 Duration (min): 3 min : 0 sec Speed (mph): 2.5 Grade (%): 12 HR (bpm): 156 SBP (mmHg): 155 DBP (mmHg): 95 METS: --- Stage: RECOVERY Duration (min): 0 min : 42 sec Speed (mph): 0.0 Grade (%): 0 HR (bpm): 144 SBP (mmHg): 182 DBP (mmHg): 66 METS: --- Rest HR: 95 bpm Peak HR: 158 bpm Rest Sys BP: 133 mmHg Peak Sys BP: 182 mmHg Max Pred HR: 179 bpm % Max Pred HR: 88 % Target HR: 152 bpm Max RPP: 28,756 bpm*mmHg Farah Score: -6 Termination Reason: Reached target heart rate or workload Cardiac Symptoms: Shortness of breath Max ST Seg Deviation: 2.40 mm Total Time: 6 min : 0 sec Rest Goldberg BP: 91 mmHg Peak Goldberg BP: 66 mmHg Angina Score: None Total METS: 7.1 Resting ECG Sinus rhythm. Stress ECG No ST changes. Arrhythmias None. Report Signatures
== END 2022-12-22 09:57 | disposition home or self-care (01) ==
PROVIDERS: PCP Family Medicine; Visit Provider Internal Medicine Cardiovascular Disease
DX: M79.603 Pain in arm, unspecified (principal)
CPT/HCPCS: 93017

== ENCOUNTER 2023-01-06 10:14 | Outpatient (CLI) | payer OTHER, SELFPAY ==
--- NOTE | 2023-01-06 11:30 | NEURO_ITS ---
Impression: # Complains of right hand weakness and numbness. 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 # Right mild Carpal Tunnel Syndrome. # Abnormal Needle/EMG exam in 1st DI and APB but not in higher muscles. # Clinical correlation recommended. Nerve Conduction Studies Anti Sensory Summary Table Stim Site NR Peak (ms) P-T Amp (?V) Site1 Site2 Delta-P (ms) Dist (cm) Elton (m/s) Right Median Anti Sensory (2-3nd Digit) Wrist 4.0 27.2 Wrist 2-3nd Digit 4.0 14.0 35 Wrist 3.9 9.7 Wrist 2-3nd Digit 4.0 14.0 35 Right Radial Anti Sensory (Base 1st Digit) Wrist 2.7 13.0 Wrist Base 1st Digit 2.7 0.0 Right Ulnar Anti Sensory (5th Digit) Wrist 3.1 18.3 Wrist 5th Digit 3.1 14.0 45 Motor Summary Table Stim Site NR Onset (ms) O-P Amp (mV) Site1 Site2 Delta-0 (ms) Dist (cm) Elton (m/s) Right Median Motor (Abd Poll Brev) Wrist 4.7 2.8 Elbow Wrist 5.5 33.0 60 Elbow 10.2 2.5 Right Ulnar Motor (Abd Dig Minimi) Wrist 3.0 1.6 A Elbow Wrist 9.5 34.0 36 A Elbow 12.5 1.0 B Elbow Wrist 5.6 26.0 46 B Elbow 8.6 0.7 F Wave Studies NR F-Lat (ms) L-R F-Lat (ms) Right Median (Mrkrs) (Abd Poll Brev) 31.52 Right Ulnar (Mrkrs) (Abd Dig Min) 31.37 EMG Side Muscle Nerve Root Ins Act Fibs Amp Dur Recrt Comment Right 1stDorInt Ulnar C8-T1 Nml Nml Decr >12ms Reduced Right Ext Indicis Radial (Post Int) C7-8 Nml Nml Nml Nml Nml Right Ext Digitorum Radial (Post Int) C7-8 Nml Nml Nml Nml Nml Right BrachioRad Radial C5-6 Nml Nml Nml Nml Nml Right PronatorTeres Median C6-7 Nml Nml Nml Nml Nml Right Abd Poll Brev Median C8-T1 Nml Nml Decr >12ms Reduced Right ABD Dig Min Ulnar C8-T1 Nml Nml Decr >12ms Reduced Right Biceps Musculocut C5-6 Nml Nml Nml Nml Nml Right Triceps Radial C6-7-8 Nml Nml Nml Nml Nml Right Deltoid Axillary C5-6 Nml Nml Nml Nml Nml MTDD
== END 2023-01-06 10:15 | disposition home or self-care (01) ==
LOC: ANHNEURO 10:15
PROVIDERS: PCP Family Medicine; Visit Provider Orthopaedic Surgery
DX: G56.21 Lesion of ulnar nerve, right upper limb (principal); G56.01 Carpal tunnel syndrome, right upper limb
CPT/HCPCS: 95886; 95909

== ENCOUNTER 2023-02-10 08:06 | Outpatient (CLI) | payer OTHER, SELFPAY ==
[2023-02-10 08:45] LABS: Anion Gap 7 mmol/L (8-16); Blood Urea Nitrogen 22 mg/dL (9-20); Calcium 8.6 mg/dL (8.4-10.2); Carbon Dioxide 25 mmol/L (22-30); Chloride 104 mmol/L (98-107); Estimated Glomerular Filt Rate > 60; Glucose 102 mg/dL (65-110); Potassium 3.9 mmol/L (3.4-5.0); Sodium 136 mmol/L (137-145)
== END 2023-02-10 08:07 | disposition home or self-care (01) ==
LOC: ANHSURGERY 08:08
PROVIDERS: Anesthesiology; PCP Family Medicine; Visit Provider Orthopaedic Surgery
DX: I10 Essential (primary) hypertension (principal); Z01.818 Encounter for other preprocedural examination
CPT/HCPCS: 36415; 80048

== ENCOUNTER 2023-02-13 00:38 | Day surgery (SDC) | payer OTHER, SELFPAY ==
[2023-02-06 15:01] VITALS: BMI 41.8
--- NOTE | 2023-02-06 15:06 | PC.NURSE ---
Report to the Outpatient Waiting Room, entrance under the green pavilion located off [facility], at time _1pm_ on date _[id number]_. Planned Procedure Time: _3pm_. Time changes happen often and if your time is changed the preop area will call you the afternoon before. - You and your visitor will be asked to self-screen and do not enter if you have any COVID symptoms. - A mask is optional within the hospital at this time. Patients may have clear liquids (water, carbonated beverages, clear teas, apple juice) until 3 hours prior to surgery with a maximum of 20 ounces. - No food from midnight until time of surgery Take the following medications with a SIP of water the morning of surgery: ___Metoprolol, pain pill if needed. DO NOT STOP ANY OF YOUR OTHER PRESCRIPTION MEDICATIONS PRIOR TO SURGERY ?EXCEPT THE FOLLOWING Medications to discontinue per physician Fish oil Date to take last [id number] Please no make-up, nail czech, hairspray, perfume, deodorant, or body powder the day of surgery. No jewelry (including any body piercings) or valuables the day of surgery, leave them at home. Please take a shower or bath the night before, or the morning of, surgery with an antibacterial soap. Wear comfortable, loose fitting clothing. - Jewelry must be removed prior to entering the operating room. Rings and piercings that are not removed may be cut off. - The hospital will not accept responsibility for valuables. - Please leave all valuables, including medications, at home the day of surgery. If you are going home after surgery, a licensed route sales driver must drive you home. - NO public transportation without another adult if you receive anesthesia. - We recommend that an adult stay with you for 24 hours following discharge. - We also recommend that you do not drive, make important decision, drink alcoholic beverages, or take any drugs that were not prescribed by your health care provider for at least 24 hours after your discharge time. Follow any additional instructions given to you from your surgeon. If you or anyone in your household have experienced Covid symptoms in the past week, please notify your surgeon or the nurse liaison at the phone number below for possible testing. Telephone instructions given to __Patient__and asked if any additional questions and then verbalized understanding. Patient advised to call surgeon office or pre surgery nurse liaison [phone] if any additional questions.
[2023-02-13] VITALS (7 sets, daily range): BP systolic 140–165; BP diastolic 88–105; PULSE 78–95; RESP 13–20; TEMP 36.6; O2SAT 98–100
--- NOTE | 2023-02-13 12:11 | WPDHPUPDATE1 ---
History and Physical Update Update Date/Time: 02/13/23 12:11 History and Physical has been reviewed, including an updated exam of the patient. There are NO changes in the patient's condition. Risks, benefits, and alternatives have been discussed and questions answered. Patient agrees to proceed with procedure.
[2023-02-13] MEDS: ACETAMINOPHEN 500 MG TABLET 1000 MG PO (13:25)
[2023-02-13] MEDS: LACTATED RINGERS 1,000 ML 30 ML IV CONT ×2 (13:30→17:27)
[2023-02-13] MEDS: KETOROLAC 15 MG/ML VIAL (*BKC) IV PUSH (13:33)
--- NOTE | 2023-02-13 14:14 | WPDANESEPPF ---
Anes - Initial Pre Proc Eval Procedure: Operation Date: 02/13/23 15:00 Proposed Procedures p Submuscular Transposition of Ulnar Nerve at The Right Elbow - Manpreet Henriquez MD Date/Time: 02/13/23 14:14 Surgeon: Manpreet Henriquez MD Pre Op Diagnosis: right elbow ulnar neuropathy Patient Data Age: 42 Gender: M Height: 1.83 m Weight: 138.1 kg Last Vital Signs Temp 36.6 C 02/13/23 13:09 Pulse 95 02/13/23 13:09 Resp 20 02/13/23 13:09 BP 143/88 H 02/13/23 13:09 Pulse Ox 98 02/13/23 13:09 O2 Del Method Room Air 02/13/23 13:09 Allergies Allergy/AdvReac Type Severity Reaction Status Date / Time No Known Allergies Allergy Verified 02/13/23 13:10 Home Medications Medication Instructions Recorded Confirmed Type omeprazole 20 mg capsule,delayed 20 mg PO DAILY #90 caps 09/26/19 02/13/23 Rx release metoprolol succinate 25 mg 25 mg PO DAILY #90 tabs 08/20/22 02/13/23 Rx tablet,extended release 24 hr atorvastatin 20 mg tablet 20 mg PO DAILY #90 tabs 11/03/22 02/13/23 Rx omega 0-ktj-dit-fish oil 1,000 mg 1 cap PO BID 11/12/22 02/13/23 History (120 mg-180 mg) capsule (Fish Oil) losartan 100 mg tablet 100 mg PO DAILY #90 tabs 11/14/22 02/13/23 Rx lidocaine 5 % topical patch 1 patch topical DAILY #30 ea 12/19/22 02/06/23 Rx (Lidoderm) hydrochlorothiazide 25 mg tablet 25 mg PO DAILY 30 days #90 tabs 01/07/23 02/13/23 Rx naproxen 500 mg tablet 500 mg PO BID PRN Pain 02/06/23 02/06/23 History oxycodone-acetaminophen 5 mg-325 1 - 2 tablet PO Q4-6H PRN pain #30 02/13/23 Rx mg tablet tabs Patient hx anesthesia problems: none Family hx anesthesia problems: none Results Review: All pre-operative results and documents have been reviewed as part of the pre-operative evaluation. [facility] Past Medical History Medical History GERD (gastroesophageal reflux disease) Surgical History Surgical History H/O umbilical hernia repair Umbilical hernia repair with 6.6cm Paritex underlay mesh 02/08/2020 History of removal of skin mole [place] teeth extracted Family History Family History Mother Arthritis Grandparent , Age 81 Alzheimer disease Other Colon cancer Social History Social History Smoking packs per day: 0.75 Smoking cigarettes per day: 15.0 Years smoked: 10 Smoking pack-years: 7.50 Smoking status: Former smoker Tobacco type: cigarettes Smoking end date: 02/07/08 Additional smoking assessment comments: 16 YEARS AGO Alcohol intake: current Drinks per week: 56 Alcohol use details: drinks 4 beers a day and shots of vodka Substance use: never Lack of Transportation: No Lack of Food: Never True Current Housing: I Have Housing Concerned About Future Housing: No Difficulty Paying Gas/Electric Bills: No Difficulty Paying for Meds: No Currently Unemployed: No Education: Trade/Vocational Certificate Difficulty w/ Childcare or Family Care: No Living arrangements: with family Occupation/Education: occupation Additional occupation/education comments: [employer] Gender identity (if verbalized by the patient): Male Spiritual care concerns: No Anes - Eval Final PreProcedure Day of Procedure 02/13/23 14:14 Patient weight: morbidly obese Heart: regular rate and rhythm Lungs: clear to auscultation Airway: Mallampati scale class II Neurological: alert and oriented Last oral intake: >/= 8 hours ASA classification: III Emergent: no Anesthetic plan: proceed Anesthesia type and monitoring: general LMA and standard monitoring Results Review: All pre-operative results and documents have been reviewed as part of the pre-operative evaluation. Informed Consent: The patient's anes
--- NOTE | 2023-02-13 14:28 | PM.HPGS ---
History of Present Illness History of Present Illness Consent: Risks, benefits, and alternatives have been discussed and questions answered. Patient agrees to proceed with procedure. 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 Intermittent symptoms for many years. Now significantly progressing. He noticed some clumsiness and atrophy in the hand muscles in the dorsum of the thumb. He has also had some left hand symptoms with heaviness or swelling sensation in the arm the seems to be associated with neck position occasionally. He has had some cervical headaches as well. Brain MRI was negative. No definite lower extremity neurovascular symptoms although some aches in the knees and below. He has use the night splinting brace with some modest benefit. Examination Overweight male. No distress. Right elbow no deformity. Full range of motion. Small abrasion on the back of the proximal forearm. Significant atrophy in the 1st dorsal interosseous muscles. Notable weakness of the interosseous muscles. Light touch sensation diminished in the ulnar 3 digits. Markedly positive Tinel at the elbow. Equivocal Tinel at the wrist. No mass or other lesions at Guyon's canal. No subjective light touch numbness in the left hand. Shoulder motion good. Elbow otherwise benign without significant tenderness or deformity. Full range of motion. Cervical motion slightly diminished. Negative Spurling's maneuver. Diagnostics Elbow films show no significant bone or joint abnormalities. Cervical radiographs reviewed also appear fairly benign. Cervical MRI shows mild spondylosis without evidence of nerve compression. EMG/nerve conduction study show ulnar neuropathy across the elbow. Mild median neuropathy at the wrist. Impression Severe cubital tunnel syndrome on the right with motor involvement. The cervical MRI did not show any concerning findings. He is in physical therapy with some benefit for cervical spondylosis. The EMG and nerve conduction studies confirmed cubital tunnel. He does not have any carpal tunnel symptoms and does not wish to have carpal tunnel surgery. We did discuss the role of ulnar nerve decompression versus transposition and we agreed to proceed with right submuscular transposition of the ulnar nerve at the elbow. Risks, benefits, and alternatives discussed. Anticipate up to 3 months off of work. [facility] Past Medical History Medical History GERD (gastroesophageal reflux disease) Surgical History Surgical History H/O umbilical hernia repair Umbilical hernia repair with 6.6cm Paritex underlay mesh 02/08/2020 History of removal of skin mole [place] teeth extracted Family History Family History Mother Arthritis Grandparent , Age 81 Alzheimer disease Other Colon cancer Social History Social History Smoking packs per day: 0.75 Smoking cigarettes per day: 15.0 Years smoked: 10 Smoking pack-years: 7.50 Smoking status: Former smoker Tobacco type: cigarettes Smoking end date: 02/07/08 Additional smoking assessment comments: 16 YEARS AGO Alcohol intake: current Drinks per week: 56 Alcohol use details: drinks 4 beers a day and shots of vodka Substance use: never Lack of Transportation: No Lack of Food: Never True Current Housing: I Have Housing Concerned About Future Housing: No Difficulty Paying Gas/Electric Bills: No Difficulty Paying for Meds: No Currently Unemployed: No Education: Trade/Vocational Certificate Difficulty w/ Childcare or Family Care: No Li
[2023-02-13] MEDS: ceFAZolin 3 GM/D5W 100 ML 100 ML IVPB (15:17)
[2023-02-13] MEDS: BUPIVACAINE/EPINEPHRINE 0.5% 30 ML VIAL INFILTRATE (15:45)
--- NOTE | 2023-02-13 17:33 | P.OP_ITS ---
Procedure Note - Detailed Date of Procedure 02/13/23 Pre-op Diagnosis Right elbow ulnar neuropathy Post-op Diagnosis Same Procedure Performed Right ulnar nerve submuscular transposition at the elbow. Surgeon Manpreet Henriquez MD In School Suspension Coordinator Gala Lamas PA-C Anesthesia General Indications Severe ulnar neuropathy at the elbow confirmed by EMG and nerve conduction studies. Profound motor deficit. Findings Significant hyperemia and venous congestion at the cubital tunnel, with evidence of nerve compression and injury. Very large stature. Description of Procedure A general anesthetic was administered. Preoperative antibiotics were given. A well-padded tourniquet was placed high on the arm. The limb was prepped and draped in the usual sterile fashion. 0.5% Marcaine with epinephrine was injected along the proposed incision. A longitudinal incision was created posterior to the medial epicondyle. Careful dissection was brought down to the ulnar nerve. Careful blunt dissection was performed deep in the subcutaneous tissues as the fascia was approached. No significant branches of the superficial nerves were identified. The ulnar nerve was identified proximally and dissected to the cubital tunnel retinaculum. Careful dissection released the cubital tunnel retinaculum. The dissection was carried out to the flexor carpi the ulnaris. The 1st motor branch was carefully identified and protected. Attention was turned proximally and the nerve was released proximal to the intermuscular septum. The flexor pronator muscle mass was delineated and released from the proximal aspect at the brachialis to the distal aspect where the distal fascia was also released as it appeared to impinge on the nerve. The intermuscular septum was excised. There was significant venous congestion and apparent constrictor at the cubital tunnel. More subtle but concerning areas of constriction were identified distal and proximal, and appropriately released completely. The flexor-pronator mass was elevated from the medial epicondyle. The capsule and ligament were carefully protected. After adequate release was confirmed proximally and distally, the nerve was carefully moved anteriorly. The course of the nerve was very nice without evidence of compression or instability. Care was taken to carefully release the any distal attenuation constriction points into the muscle as well as constriction points proximal. The triceps was hypertrophied and the nerve was slightly tethered posteriorly. Careful continued release of the nerve was performed, and then a very straight pathway of the nerve was confirmed. The muscle was then repaired using multiple interrupted modified Scott-Alejandro mattress 0 Vicryl suture. The tourniquet was released to assure that there was no significant bleeding. Meticulous hemostasis was maintained with bipolar electrocautery throughout the procedure. The subcutaneous tissues were closed with 0 Vicryl suture. The skin was closed with interrupted 3-0 Monocryl suture followed by running 4-0 Monocryl suture and Steri-Strips. Sterile dressing was applied with a posterior splint. The patient was extubated and brought to the recovery room in stable condition. Estimated Blood Loss 1 Tourniquet Time 78 Drains No Pathology None sent Complications No immediate complications Condition Stable Disposition PACU [facility] Billing Surgery - Charge Forward: Surgery Billing
[2023-02-13] MEDS: fentaNYL CITRATE INJ (*CRX) 100 MCG/2 ML VIAL 25 MCG IV PUSH ×6 (17:36→18:05)
== END 2023-02-13 19:05 | disposition home or self-care (01) ==
PROVIDERS: PCP Family Medicine; Visit Provider Orthopaedic Surgery
PROC: (CPT 64718; principal; 2023-02-13 15:00)
DX: G56.21 Lesion of ulnar nerve, right upper limb (principal); R20.0 Anesthesia of skin; K21.9 Gastro-esophageal reflux disease without esophagitis; I10 Essential (primary) hypertension; Z87.891 Personal history of nicotine dependence; Z79.891 Long term (current) use of opiate analgesic; E66.01 Morbid (severe) obesity due to excess calories; Z68.41 Body mass index [BMI] 40.0-44.9, adult
CPT/HCPCS: 64718; 36415; 80048; A4565; A9270; J0690; J1100; J1885; J2250; J2405; J2704; J3010; J7120

== ENCOUNTER 2023-04-21 08:38 | Outpatient (CLI) | payer OTHER, SELFPAY ==
[2023-04-21 12:46] LABS: Basophils Absolute Auto 0.1 K/mm3 (0.0-0.1); Basophils Percent Auto 0.6 % (0.2-1.2); Eosinophils Absolute Auto 0.1 K/mm3 (0-0.3); Eosinophils Percent Auto 1.3 % (0-4.4); Hemoglobin 13.1 g/dL (14.0-18.0); Immature Granulocyte Absolute 0.05 K/mm3 (0.00-0.031); Immature Granulocyte Percent A 0.6 % (0-0.5); Lymphocytes Absolute Auto 2.26 K/mm3 (0.9-3.2); Lymphocytes Percent Auto 28.3 % (18.3-44.2); Mean Corpuscular HGB Conc 33.6 g/dl (32-36); Mean Corpuscular Hemoglobin 32.8 pg (26-34); Mean Corpuscular Volume 97.5 fl (80-100); Monocytes Absolute Auto 0.5 K/mm3 (0.1-0.6); Monocytes Percent Auto 6.1 % (2.6-8.5); Neutrophils Percent Auto 63.1 % (45.5-73.1); Platelet Count Result 275 k/mm3 (150-375); Red Cell Distribution Width 13.9 % (11.5-14.5)
[2023-04-21 14:17] LABS: Alanine Aminotransferase 38 U/L (6-50); Albumin Level 4.9 g/dL (3.5-5.1); Alkaline Phosphatase 101 U/L (38-126); Anion Gap 12 mmol/L (8-16); Aspartate Amino Transferase 81 U/L (17-59); Bilirubin,Total 1.5 mg/dL (0.2-1.3); Blood Urea Nitrogen 13 mg/dL (9-20); Calcium 8.6 mg/dL (8.4-10.2); Carbon Dioxide 24 mmol/L (22-30); Chloride 99 mmol/L (98-107); Estimated Glomerular Filt Rate 48; Glucose 112 mg/dL (65-110); Lipase 214 U/L (23-300); Sodium 135 mmol/L (137-145)
[2023-04-21 15:19] LABS: Folic Acid > 20.0 ng/mL (2.76->20)
[2023-04-24 13:59] LABS: Anti Nuclear Antibody Titer 1:40 (Negative)
== END 2023-04-21 08:39 | disposition home or self-care (01) ==
LOC: ANHGOSHLAB 08:39
PROVIDERS: PCP Family Medicine; Visit Provider Family Medicine
DX: R10.9 Unspecified abdominal pain (principal); R53.83 Other fatigue; Z13.228 Encounter for screening for other metabolic disorders; E53.8 Deficiency of other specified B group vitamins
CPT/HCPCS: 36415; 80053; 82607; 82746; 83690; 85025; 86038; 86039

== ENCOUNTER 2023-04-24 12:43 | Outpatient (CLI) | payer OTHER, SELFPAY ==
[2023-04-24 18:54] LABS: Alanine Aminotransferase 33 U/L (6-50); Albumin Level 4.4 g/dL (3.5-5.1); Alkaline Phosphatase 67 U/L (38-126); Anion Gap 10 mmol/L (8-16); Aspartate Amino Transferase 65 U/L (17-59); Bilirubin,Total 0.9 mg/dL (0.2-1.3); Blood Urea Nitrogen 19 mg/dL (9-20); Calcium 8.2 mg/dL (8.4-10.2); Carbon Dioxide 23 mmol/L (22-30); Chloride 101 mmol/L (98-107); Estimated Glomerular Filt Rate > 60; Glucose 102 mg/dL (65-110); Potassium 3.7 mmol/L (3.4-5.0); Sodium 134 mmol/L (137-145)
== END 2023-04-24 12:44 | disposition home or self-care (01) ==
LOC: ANHGOSHLAB 12:45
PROVIDERS: PCP Family Medicine; Visit Provider Family Medicine
DX: Z13.228 Encounter for screening for other metabolic disorders (principal)
CPT/HCPCS: 36415; 80053

== ENCOUNTER 2023-05-11 09:12 | Outpatient (CLI) | payer OTHER, SELFPAY ==
[2023-05-11 18:40] LABS: Vitamin D 25 Hydroxy 15.5 ng/mL
[2023-05-11 18:46] LABS: Rheumatoid Factor < 12.0 IU/ML (<12)
[2023-05-19 05:06] LABS: Vitamin B6 10.4 ng/mL (2.1-21.7)
== END 2023-05-11 09:13 | disposition home or self-care (01) ==
LOC: ANHGOSHLAB 09:13
PROVIDERS: PCP Family Medicine; Visit Provider Nurse Practitioner Family
DX: E53.8 Deficiency of other specified B group vitamins (principal); R20.0 Anesthesia of skin; R20.2 Paresthesia of skin; E55.9 Vitamin D deficiency, unspecified; R76.8 Other specified abnormal immunological findings in serum
CPT/HCPCS: 36415; 82306; 82607; 84207; 86430

== ENCOUNTER 2023-07-21 14:42 | Outpatient (CLI) | payer OTHER, SELFPAY ==
[2023-07-21 19:27] LABS: Basophils Absolute Auto 0.1 K/mm3 (0.0-0.1); Basophils Percent Auto 0.6 % (0.2-1.2); Eosinophils Percent Auto 0.5 % (0-4.4); Hematocrit 31.6 % (42.0-52.0); Hemoglobin 10.2 g/dL (14.0-18.0); Immature Granulocyte Absolute 0.04 K/mm3 (0.00-0.031); Immature Granulocyte Percent A 0.5 % (0-0.5); Lymphocytes Absolute Auto 2.02 K/mm3 (0.9-3.2); Lymphocytes Percent Auto 25.5 % (18.3-44.2); Mean Corpuscular HGB Conc 32.3 g/dl (32-36); Mean Corpuscular Hemoglobin 33.6 pg (26-34); Mean Corpuscular Volume 103.9 fl (80-100); Mean Platelet Volume 9.5 fl (7.4-10.4); Monocytes Absolute Auto 0.5 K/mm3 (0.1-0.6); Monocytes Percent Auto 6.7 % (2.6-8.5); Neutrophils Absolute Auto 5.2 K/mm3 (1.3-6.7); Neutrophils Percent Auto 66.2 % (45.5-73.1); Platelet Count Result 277 k/mm3 (150-375); Red Blood Count 3.04 M/mm3 (4.6-6.20); Red Cell Distribution Width 12.3 % (11.5-14.5); White Blood Count 7.9 K/mm3 (4.5-10.0)
[2023-07-21 20:29] LABS: Alanine Aminotransferase 37 U/L (6-50); Albumin Level 4.5 g/dL (3.5-5.1); Alkaline Phosphatase 72 U/L (38-126); Anion Gap 14 mmol/L (8-16); Aspartate Amino Transferase 65 U/L (17-59); Bilirubin,Total 0.5 mg/dL (0.2-1.3); Blood Urea Nitrogen 27 mg/dL (9-20); Calcium 6.2 mg/dL (8.4-10.2); Carbon Dioxide 22 mmol/L (22-30); Chloride 107 mmol/L (98-107); Estimated Glomerular Filt Rate 30; Glucose 97 mg/dL (65-110); Potassium 4.1 mmol/L (3.4-5.0); Sodium 143 mmol/L (137-145)
[2023-07-21 21:51] LABS: Hemoglobin A1C 4.9 % (<5.7)
[2023-07-23 21:17] LABS: Anti Nuclear Antibody Titer 1:40 (Negative)
== END 2023-07-21 14:43 | disposition home or self-care (01) ==
LOC: ANHGOSHLAB 14:44
PROVIDERS: PCP Family Medicine; Visit Provider Nurse Practitioner Family
DX: R53.83 Other fatigue (principal); Z13.228 Encounter for screening for other metabolic disorders; M25.50 Pain in unspecified joint; R73.9 Hyperglycemia, unspecified
CPT/HCPCS: 36415; 80053; 83036; 85025; 86038; 86039

== ENCOUNTER 2023-07-23 11:24 | Inpatient (IN) | payer OTHER, SELFPAY ==
[2023-07-23] VITALS (18 sets, daily range): BP systolic 139–161; BP diastolic 79–102; PULSE 89–113; RESP 12–32; TEMP 36.7–36.8; O2SAT 97–100
--- NOTE | ~2023-07-23 | US_ITS ---
US renal BI 07/23/2023 14:43 Procedure: Realtime transabdominal ultrasound of the kidneys and bladder. Indication: Acute renal insufficiency Comparison: No prior studies for comparison. Findings: Renal echotexture is normal bilaterally without hydronephrosis, contour deforming mass or r enal calculus. The right kidney measures 11.5 cm and left kidney measures 11.9 cm. Bladder within no rmal limits. Impression: 1: Unremarkable renal ultrasound. No stones, masses or hydronephrosis. Reviewed, dictated and finalized at location L. EL REGISTERED NURSE ONCOLOGY Impression: 1: Unremarkable renal ultrasound. No stones, masses or hydronephrosis.
--- NOTE | ~2023-07-23 | CT_ITS ---
EXAMINATION: CT abdomen pelvis wo con DATE: 07/23/2023 16:38 INDICATION: Pancreatitis. TECHNIQUE: Computed tomography (CT) of the abdomen and pelvis was performed without intravenous contr ast. Automated exposure control and iterative reconstruction technique were employed. The dose-length product was 1670.58 mGy-cm. COMPARISON: Chest CT 01/31/2021 FINDINGS: The visualized portions of the lung bases demonstrate mild atelectasis. No pleural effusion . The heart size is normal. There are coronary artery calcifications. No pericardial effusion. There is diffuse hepatic steatosis. The gallbladder, spleen, pancreas, adrenal glands, and kidneys are norm al. There is no urolithiasis. There are no dilated loops of bowel. The appendix is normal. Aortic ath erosclerosis is noted. The bladder is distended. There is moderate thoracic spondylosis and severe silver mbar spondylosis. There is mild chronic height loss of multiple vertebral bodies. IMPRESSION: 1. Normal pancreas. 2. Diffuse hepatic steatosis. Reviewed, dictated and finalized at location E. DRIVER SUPERVISOR
--- NOTE | ~2023-07-23 | XR_ITS ---
EXAM: [id number] DATE: 07/25/2023 18:20 HISTORY: right knee pain and swelling . COMPARISON: None available. FINDINGS: Normal mineralization. No fracture or dislocation. No lytic or blastic lesion. Mild tricom partmental osteoarthritis. Quadriceps enthesopathy. Small volume joint fluid. No erosion or periostea l change. Soft tissues within normal limits. IMPRESSION: No acute osseous finding in the right knee. Reviewed, dictated and finalized at location K. CE SUPPORT
--- NOTE | 2023-07-23 12:05 | ED.RECABL ---
HPI - Recheck/Abnormal Lab/Rx General Chief Complaint: Recheck/Abnormal Lab/Rx Stated Complaint: abnormal testing Time Seen by Provider: 07/23/23 12:01 Source: patient Mode of arrival: ambulatory Limitations: no limitations History of Present Illness HPI narrative: Patient was told to present to the emergency department by his primary care physician. He had lab work performed on Thursday which resulted with an abnormal calcium level. He states it was low but he does not know to what degree. He saw his primary care physician due to the fact that he has been experiencing numbness and tingling in his bilateral lower extremities which then started to twitch. He also developed twitching/jerking in his hands. He is also experiencing some perioral numbness/tingling. He is feeling fatigued. No chest pain or shortness of breath. He has been dealing with intermittent oral thrush and what sounds like possible esophagitis as well. Related Data Home Medications Medication Instructions Recorded Confirmed omega 6-fus-khg-fish oil 1,000 mg 1 cap PO BID 11/12/22 07/21/23 (120 mg-180 mg) capsule (Fish Oil) Allergies Allergy/AdvReac Type Severity Reaction Status Date / Time No Known Allergies Allergy Verified 07/21/23 14:32 [facility] Past Medical History Medical History (Updated 07/23/23 @ 13:41 by Kaylee Tabor MD) Abdominal pain COVID May 2025 GERD (gastroesophageal reflux disease) Positive ANDREE (antinuclear antibody) Vitamin D deficiency, unspecified Surgical History Surgical History H/O umbilical hernia repair Umbilical hernia repair with 6.6cm Paritex underlay mesh 02/08/2020 History of decompression of ulnar nerve (~02/13/23) Transposition - Rt History of removal of skin mole [place] teeth extracted Family History Family History Mother Arthritis Grandparent , Age 81 Alzheimer disease Other Colon cancer Social History Social History Smoking packs per day: 0.75 Smoking cigarettes per day: 15.0 Years smoked: 10 Smoking pack-years: 7.50 Smoking status: Former smoker Tobacco type: cigarettes Smoking end date: 02/07/08 Additional smoking assessment comments: 16 YEARS AGO Alcohol intake: current Drinks per week: 56 Alcohol use details: drinks 4 beers a day and shots of vodka Substance use: never Lack of Transportation: No Lack of Food: Never True Current Housing: I Have Housing Concerned About Future Housing: No Difficulty Paying Gas/Electric Bills: No Difficulty Paying for Meds: No Currently Unemployed: No Education: Trade/Vocational Certificate Difficulty w/ Childcare or Family Care: No Living arrangements: with family Occupation/Education: occupation Additional occupation/education comments: Walk-in Gender identity (if verbalized by the patient): Male Spiritual care concerns: No Exam Narrative: GENERAL: Well-appearing, well-nourished and in no acute distress. HEENT: Head normocephalic, atraumatic. Mild conjunctival pallor. Can elicit some mild facial spasm with tapping the cheek ([place] sign). NECK: Supple, full, normal range of motion, CARDIAC: Tachycardic rate and rhythm RESPIRATORY: Speaking in full sentences, no respiratory distress ABDOMEN: Soft, obese, EXTREMITIES: Normal range of motion. Occasional involuntary movements of bilateral lower extremities, jerking. NEUROLOGICAL: Normal speech. Alert. SKIN: Warm, dry, normal color. Course Vital Signs Vital signs: Vital Signs Pulse Oximetry 99 07/23/23 11:43 Pulse Rate 104 H 07/23/23 12:16 Respiratory Rate 22 H 07/23/23 12:16 Blood Pressure 161/97 H 07/23/23 12:16 Pulse Oximetry 100 07/23/23 12:16 MDM - Recheck/Abnormal Lab/Rx MDM Narrative Medical decision [facility]
[2023-07-23 12:22] LABS: Basophils Absolute Auto 0.1 K/mm3 (0.0-0.1); Basophils Percent Auto 0.7 % (0.2-1.2); Eosinophils Absolute Auto 0.1 K/mm3 (0-0.3); Eosinophils Percent Auto 1.2 % (0-4.4); Hematocrit 32.5 % (42.0-52.0); Hemoglobin 10.9 g/dL (14.0-18.0); Immature Granulocyte Absolute 0.04 K/mm3 (0.00-0.031); Immature Granulocyte Percent A 0.5 % (0-0.5); Lymphocytes Absolute Auto 1.95 K/mm3 (0.9-3.2); Lymphocytes Percent Auto 26.6 % (18.3-44.2); Mean Corpuscular HGB Conc 33.5 g/dl (32-36); Mean Corpuscular Hemoglobin 33.5 pg (26-34); Mean Platelet Volume 9.2 fl (7.4-10.4); Monocytes Absolute Auto 0.4 K/mm3 (0.1-0.6); Neutrophils Absolute Auto 4.8 K/mm3 (1.3-6.7); Platelet Count Result 265 k/mm3 (150-375); Red Blood Count 3.25 M/mm3 (4.6-6.20); Red Cell Distribution Width 11.9 % (11.5-14.5); White Blood Count 7.3 K/mm3 (4.5-10.0)
[2023-07-23 12:30] LABS: Alanine Aminotransferase 39 U/L (6-50); Albumin Level 4.7 g/dL (3.5-5.1); Alkaline Phosphatase 68 U/L (38-126); Anion Gap 15 mmol/L (8-16); Aspartate Amino Transferase 66 U/L (17-59); Bilirubin,Total 0.7 mg/dL (0.2-1.3); Blood Urea Nitrogen 21 mg/dL (9-20); Calcium 5.9 mg/dL (8.4-10.2); Carbon Dioxide 20 mmol/L (22-30); Chloride 105 mmol/L (98-107); Estimated CRCL calculation 96 ml/min; Estimated Glomerular Filt Rate 56; Glucose 126 mg/dL (65-110); Magnesium 0.3 mg/dL (1.6-2.3); Potassium 3.6 mmol/L (3.4-5.0); Sodium 140 mmol/L (137-145)
--- NOTE | 2023-07-23 12:44 | ECG_ITS ---
Measurements Intervals [place] Rate: 93 P: -6 AL: 86 QRS: 14 QRSD: 91 T: 16 QT: 354 QTc: 441 Interpretive Statements SINUS RHYTHM WITH SHORT AL INTERVAL INCOMPLETE RIGHT BUNDLE BRANCH BLOCK BORDERLINE ECG COMPARED TO ECG 09/09/2022 13:54:52 NO SIGNIFICANT CHANGES Electronically Signed On 07-23-2023 13:33:23 [employer] by Pedro Lloyd D.O.
[2023-07-23 13:07] LABS: Lipase 355 U/L (23-300)
--- NOTE | 2023-07-23 13:42 | PM.IMHP ---
H&P: HPI History of Present Illness Date/Time: 07/23/23 13:42 Chief Complaint: Muscle Twitching, Fatigue, Abnormal Labs Narrative: 43 y/o M presents here with twitching/jerking of his hands abnormal calcium level, perioral numbness tingling, fatigue and oral thrush PMH of alcohol abuse, +ANDREE, GERD, and Vitamin D Deficiency. Patient reports numbness to his toes and feet causing a secondary limp. Exacerbated by ambulation and alleviated with rest. Numbness then progressed to his knees with subsequent instability. [place] like his legs would lock . Within the past week he developed shooting pains and tingling in his forearms that would be exacerbated by quick extension of the arm. Occasional cramping of the fingers where the finger would become stuck flexed. ETOH Hx: previously drinking half of a fifth daily, currently drinking 1/4-1/2 of a fifth daily. Last Drink: last drink 9:30 last night (07/22). Thrush: s/s started around Feb shortly after patient had surgery to his right elbow. Treated with magic mouthwash and then tabs. Resolved until patient had COVID on 06/22 through early Jun. Thrush then returned and had associated mouth soreness, nausea, and poor appetite. Also developed diarrhea post-COVID which has not resolved, was intermittent prior. LBM today. Has on average been going 5 times per day, small volume, non-bloody/non-tarry. ED workup showed hemoglobin of 10.9, creatinine 1.4 (2.4 on 07/21), calcium 5.9, magnesium 0.3, AST 66, and lipase 355. EKG showed sinus rhythm with short CA interval, incomplete RBBB, borderline EKG, when compared to previous in 08/2022, no significant changes. Review of Systems Review of Systems: All systems reviewed & are unremarkable except as noted in HPI and below [facility] Past Medical History Medical History (Updated 07/23/23 @ 16:13 by Mary Thompson APRN) Alcohol abuse COVID 06/22/23 Essential (primary) hypertension GERD (gastroesophageal reflux disease) Hyperlipidemia Positive ANDREE (antinuclear antibody) Vitamin D deficiency, unspecified Surgical History Surgical History (Updated 07/23/23 @ 16:01 by Mary E. Jay, AMMUNITION SPECIALIST) H/O umbilical hernia repair Umbilical hernia repair with 6.6cm Paritex underlay mesh 02/08/2020 History of decompression of ulnar nerve (~02/13/23) Transposition - Rt History of removal of skin mole [place] teeth extracted Family History Family History Mother Arthritis Grandparent , Age 81 Alzheimer disease Other Colon cancer Social History Social History Smoking packs per day: 0.75 Smoking cigarettes per day: 15.0 Years smoked: 10 Smoking pack-years: 7.50 Smoking status: Former smoker Tobacco type: cigarettes Smoking end date: 02/07/08 Additional smoking assessment comments: 16 YEARS AGO Alcohol intake: current Drinks per week: 56 Alcohol use details: drinks 4 beers a day and shots of vodka Substance use: never Lack of Transportation: No Lack of Food: Never True Current Housing: I Have Housing Concerned About Future Housing: No Difficulty Paying Gas/Electric Bills: No Difficulty Paying for Meds: No Currently Unemployed: No Education: Trade/Vocational Certificate Difficulty w/ Childcare or Family Care: No Living arrangements: with family Occupation/Education: occupation Additional occupation/education comments: [employer] Gender identity (if verbalized by the patient): Male Spiritual care concerns: No Meds Home Medications and Allergies Home Medications Medication Instructions Recorded Confirmed Type omeprazole 20 mg capsule,delayed 20 mg PO DAILY #90 caps 09/26/19 07/23/23 Rx release atorvastatin 20 mg tablet 20 mg PO DAILY #90 tabs 11/03/22 07/23/23 Rx omega 9-abw-psh-fish oil 1,000 mg 2 cap PO DAILY 11/12/22 07/23/23 History (120 mg-180 mg) capsu
[2023-07-23] MEDS: CALCIUM GLUC 2,000 MG/NS 100ML 2,000 MG/100 ML BAG 100 MG IVPB ×2 (13:53→22:26)
[2023-07-23 14:02] LABS: Anion Gap 11 mmol/L (8-16); Blood Urea Nitrogen 20 mg/dL (9-20); Calcium 6.1 mg/dL (8.4-10.2); Carbon Dioxide 22 mmol/L (22-30); Chloride 107 mmol/L (98-107); Estimated CRCL calculation 96 ml/min; Estimated Glomerular Filt Rate 56; Glucose 108 mg/dL (65-110); Magnesium 0.4 mg/dL (1.6-2.3); Potassium 3.9 mmol/L (3.4-5.0); Sodium 140 mmol/L (137-145)
[2023-07-23 14:20] LABS: Ethanol < 10 mg/dL (<10)
[2023-07-23 14:24] LABS: Creatine Kinase 362 U/L (55-170)
[2023-07-23] MEDS: MAGNESIUM SULF 2 GM/WATER 50ML 2 GM/50 ML BAG IVPB ×2 (15:16→23:36)
--- NOTE | 2023-07-23 16:24 | ADMGEN ---
This patient, Ernst Lobo, was admitted to Medical Room 341-01. Patient/family oriented to hospital policies and general routines including ID bracelet, bed and alarms, visiting hours, pain management, procedures, bathroom and other care routines, personal items, smoking policy, room service/diet, and visiting hours. Information on how to activate the Rapid Response Team has been discussed. Patient/Family are encouraged to report perceived risks to care and to ask questions if they do not understand what they are told or what they should do.
[2023-07-23] MEDS: PANTOPRAZOLE SODIUM IV 40 MG VIAL IV PUSH (17:08)
[2023-07-23] MEDS: chlordiazePOXIDE (*CRX) 25 MG CAPSULE PO ×2 (17:15→23:36)
[2023-07-23 18:33] LABS: Glucose Point of Care 225 mg/dl (65-105)
[2023-07-23] MEDS: CLOTRIMAZOLE 10 MG TROC MUCOUS MEM (18:50)
[2023-07-23 19:36] LABS: Folic Acid 13.5 ng/mL (2.76->20)
[2023-07-23 19:50] LABS: Vitamin D 25 Hydroxy 53.5 ng/mL
[2023-07-23 20:56] LABS: Alanine Aminotransferase 39 U/L (6-50); Albumin Level 4.4 g/dL (3.5-5.1); Alkaline Phosphatase 69 U/L (38-126); Anion Gap 12 mmol/L (8-16); Aspartate Amino Transferase 63 U/L (17-59); Bilirubin,Total 0.8 mg/dL (0.2-1.3); Blood Urea Nitrogen 21 mg/dL (9-20); Calcium 6.6 mg/dL (8.4-10.2); Carbon Dioxide 22 mmol/L (22-30); Chloride 108 mmol/L (98-107); Estimated CRCL calculation 96 ml/min; Estimated Glomerular Filt Rate 56; Glucose 94 mg/dL (65-110); Potassium 3.7 mmol/L (3.4-5.0); Sodium 142 mmol/L (137-145)
[2023-07-24] VITALS (11 sets, daily range): BP systolic 141–152; BP diastolic 85–98; PULSE 76–105; RESP 16–20; TEMP 36.2–36.5; O2SAT 98–100
[2023-07-24] MEDS: chlordiazePOXIDE (*CRX) 25 MG CAPSULE PO ×4 (05:31→23:30)
[2023-07-24 06:00] LABS: Basophils Percent Auto 0.6 % (0.2-1.2); Eosinophils Absolute Auto 0.2 K/mm3 (0-0.3); Eosinophils Percent Auto 2.6 % (0-4.4); Hematocrit 30.7 % (42.0-52.0); Hemoglobin 10.4 g/dL (14.0-18.0); Immature Granulocyte Absolute 0.03 K/mm3 (0.00-0.031); Immature Granulocyte Percent A 0.5 % (0-0.5); Lymphocytes Absolute Auto 1.77 K/mm3 (0.9-3.2); Lymphocytes Percent Auto 27.3 % (18.3-44.2); Mean Corpuscular HGB Conc 33.9 g/dl (32-36); Mean Corpuscular Hemoglobin 33.8 pg (26-34); Mean Corpuscular Volume 99.7 fl (80-100); Mean Platelet Volume 9.1 fl (7.4-10.4); Monocytes Absolute Auto 0.4 K/mm3 (0.1-0.6); Monocytes Percent Auto 5.7 % (2.6-8.5); Neutrophils Absolute Auto 4.1 K/mm3 (1.3-6.7); Neutrophils Percent Auto 63.3 % (45.5-73.1); Platelet Count Result 256 k/mm3 (150-375); Red Blood Count 3.08 M/mm3 (4.6-6.20); Red Cell Distribution Width 11.8 % (11.5-14.5); White Blood Count 6.5 K/mm3 (4.5-10.0)
[2023-07-24 06:30] LABS: Alanine Aminotransferase 36 U/L (6-50); Alkaline Phosphatase 68 U/L (38-126); Anion Gap 9 mmol/L (8-16); Aspartate Amino Transferase 55 U/L (17-59); Blood Urea Nitrogen 18 mg/dL (9-20); Calcium 6.7 mg/dL (8.4-10.2); Carbon Dioxide 23 mmol/L (22-30); Chloride 108 mmol/L (98-107); Estimated CRCL calculation 103 ml/min; Estimated Glomerular Filt Rate > 60; Glucose 100 mg/dL (65-110); Lipase 318 U/L (23-300); Magnesium 1.3 mg/dL (1.6-2.3); Phosphorus 3.5 mg/dL (2.5-4.5); Potassium 3.6 mmol/L (3.4-5.0); Sodium 140 mmol/L (137-145)
[2023-07-24 06:59] LABS: Glucose Point of Care 99 mg/dl (65-105)
[2023-07-24] MEDS: CALCIUM GLUC 1,000 MG/NS 50 ML 1,000 MG/50 ML BAG 100 MG IVPB (07:22)
[2023-07-24] MEDS: MAGNESIUM SULF 1 GM/D5W 100 ML 1 GM/100 ML BAG IVPB (09:58)
[2023-07-24] MEDS: FOLIC ACID 1 MG TABLET PO (09:59)
[2023-07-24] MEDS: LOSARTAN POTASSIUM 100 MG TABLET PO (09:59)
[2023-07-24] MEDS: CLOTRIMAZOLE 10 MG TROC MUCOUS MEM ×3 (09:59→17:08)
[2023-07-24] MEDS: METOPROLOL SUCCINATE EXT REL 25 MG TABCR PO (09:59)
[2023-07-24] MEDS: THIAMINE HCL 100 MG TABLET PO (09:59)
[2023-07-24] MEDS: PANTOPRAZOLE SODIUM IV 40 MG VIAL IV PUSH (09:59)
--- NOTE | 2023-07-24 11:05 | PM.CNNEP ---
Assessment and Plan Assessment and plan (1) Hypocalcemia: Code(s): E83.51 - Hypocalcemia Status: Acute Assessment and Plan: symptomatic on presentation getting IV replacement/supplementation presumably precipitated by low magnesium follow-up on pending testing check urine electrolytes, SPEP, UPEP...etc follow serial calcium levels (2) Hypomagnesemia: Code(s): E83.42 - Hypomagnesemia Status: Acute Assessment and Plan: etiology? poor oral intake? renal wasting syndrome? -- although no associated hypokalemia alcohol use? replace IV and oral as tolerated if persists, consider checking 24hr urine magnesium follow trend of repeat magnesium levels (3) EDGAR (acute kidney injury): Code(s): N17.9 - Acute kidney failure, unspecified Status: Acute Assessment and Plan: resolving presumably due to volume depletion hold HCTZ for now follow trend of repeat labs and UOP (4) Essential (primary) hypertension: Code(s): I10 - Essential (primary) hypertension Status: Acute Assessment and Plan: continue home medications titrate as needed follow trend of hemodynamics (5) Alcohol abuse: Code(s): F10.10 - Alcohol abuse, uncomplicated Status: Acute Assessment and Plan: continue CIWA protocol monitor for withdrawal I will continue follow the patient with you while he remains hospitalized make further recommendations as needed. Thank you for allowing me to participate in care this patient. History of Present Illness Reason for Consult Consult date: 07/24/23 Reason for consult: acute renal failure and Other (hypocalcemia; hypomagnesemia) Chief Complaint Chief complaint: hypocalemia (hypomagnesemia History of Present Illness Narrative: The patient is a 43-year-old male with a past medical history as outlined below who presented to [facility] Emergency room at the best of his primary care physician due to abnormal outpatient labs. He saw his primary care physician a few days ago due to a variety of symptoms which included numbness and tingling in his bilateral lower extremities and associated with twitching movements. The twitching jerking movements also were present in his upper extremity/hand. Furthermore, he has been experiencing perioral numbness and tingling as well as in association with generalized fatigue. The symptoms have been further complicated by the fact that he has had a couple of bouts of oral thrush which severely limited his oral intake along with diarrhea that he had post COVID-19 infection.His primary care physician informed him that he had a low calcium level which may explain some of his symptoms and hence his referral to the ER for further assessment. Workup and evaluation in the emergency room demonstrated the patient be hemodynamically stable and repeat labs in the emergency room demonstrated improvement in his renal function from 2.4 mg/dL to 1.4 mg/dL but confirmed his hypocalcemia with a calcium level 5.9 in association with hypo magnesemia with a level of 0.3. EKG did not show any significant ischemic changes either. He received IV replacement for his calcium and magnesium and was subsequently admitted to the hospital for further evaluation and therapy. Since his admission, he states he feels somewhat better but he still having issues with hypocalcemia and hypomagnesemia requiring further IV supplementation. Renal consultation was requested due to his acute kidney injury/acute renal failure in conjunction with the electrolyte abnormalities as mentioned with regard to his low calcium and low magnesium level. From review his records, he has never had any issues or problems with low calcium level in the past up until these recent labs done this year. Unfortunately, I have no previous magnesium levels to compare to to assess how acute or chronic this issue is. Presumably, his low magnesi
[2023-07-24 12:28] LABS: Glucose Point of Care 103 mg/dl (65-105)
--- NOTE | 2023-07-24 15:40 | PM.IMPN ---
Progress Note: A&P Assessment and Plan (1) Hypocalcemic tetany: Code(s): E83.51 - Hypocalcemia Status: Acute (2) Hypocalcemia: Code(s): E83.51 - Hypocalcemia Status: Acute (3) EDGAR (acute kidney injury): Code(s): N17.9 - Acute kidney failure, unspecified Status: Acute (4) Hypomagnesemia with secondary hypocalcemia: Code(s): E83.42 - Hypomagnesemia; E83.51 - Hypocalcemia Status: Acute (5) Alcohol abuse: Code(s): F10.10 - Alcohol abuse, uncomplicated Status: Acute (6) Elevated lipase: Code(s): R74.8 - Abnormal levels of other serum enzymes Status: Acute (7) Anemia: Qualifiers: Anemia type: unspecified type Qualified Code(s): D64.9 - Anemia, unspecified Code(s): D64.9 - Anemia, unspecified Status: Acute (8) Essential (primary) hypertension: Code(s): I10 - Essential (primary) hypertension Status: Acute Plan This is a 43-year-old male presents to the ED as directed by his primary care because of. And experienced some numbness and tingling in his bilateral lower extremity patient. Started for which day. Social conversation 18. Will laboratory evaluation showed hypomagnesemia hypocalcemia of 5.9. Lipase is mildly elevated 355 EKG showed normal sinus rhythm a care orders. Was treated with calcium gluconate and magnesium in the ER was abdominal further treatment. Has had mild EDGAR with creatinine 1 point more and has mild anemia 10.9. Chronic alcohol abuse. Nutritional deficiency likely related to chronic alcohol abuse. Hypertension home medication hydrochlorothiazide 25 mg daily losartan 100 mg daily and metoprolol 25 mg daily Replace lytes as tolerated Chronic alcohol abuse on CIWA protocol with Librium Elevated lipase: Three hundred fifty-five. CT abdomen with normal pancreas. Diffuse hepatic steatosis. Advanced diet as tolerated. EDGAR creatinine 2.4 which has improved DVT prophylaxis SCDs/Lovenox Code status full code Subjective Date/time seen: 07/24/23 15:40 Interval history: Feels better. Less shaky. Labs reviewed. Review of Systems Review of Systems: All systems reviewed & are unremarkable except as noted in HPI and below Exam Narrative: GENERAL: Well-appearing, well-nourished and in no acute distress. HEENT: Head normocephalic, atraumatic. Mild conjunctival pallor. NECK: Supple, full, normal range of motion, CARDIAC: Regular rate and rhythm RESPIRATORY: Speaking in full sentences, no respiratory distress ABDOMEN: Soft, obese, EXTREMITIES: Normal range of motion. Occasional involuntary movements of bilateral lower extremities, jerking. NEUROLOGICAL: Normal speech. Alert. SKIN: Warm, dry, normal color. Objective Data Vital Signs Vital Signs: Vital Signs - 24 hr 07/23/23 16:11 07/23/23 16:20 07/23/23 16:22 Temperature 98.2 F Pulse Rate 102 H 94 Respiratory Rate 16 Blood Pressure 147/96 H Pulse Oximetry 99 Oxygen Delivery Room Air 07/23/23 20:00 07/23/23 22:00 07/24/23 00:00 Temperature 98.0 F Pulse Rate 105 H 89 76 Respiratory Rate 21 H Blood Pressure 143/94 H Pulse Oximetry 100 Oxygen Delivery 07/24/23 04:00 07/24/23 06:00 07/24/23 07:54 Temperature 97.1 F L Pulse Rate 80 81 Respiratory Rate 20 Blood Pressure 152/95 H Pulse Oximetry 99 98 Oxygen Delivery Room Air 07/24/23 09:59 07/24/23 09:59 07/24/23 08:00 Temperature Pulse Rate 105 H 77 Respiratory Rate Blood Pressure Pulse Oximetry Oxygen Delivery Room Air 07/24/23 09:59 07/24/23 12:00 07/24/23 14:00 Temperature 97.7 F Pulse Rate 83 93 Respiratory Rate 16 Blood Pressure 150/98 H 141/85 H Pulse Oximetry 100 Oxygen Delivery Intake/Output Intake/Output: Intake & Output 07/21/23 07/22/23 07/23/23 07/24/23 23:59 23:59 23:59 23:59 Intake Total 790 950 Balance 790 950 Meds/Results Medications: Active Medicatio
[2023-07-24 17:33] LABS: Glucose Point of Care 94 mg/dl (65-105)
[2023-07-24] MEDS: ACETAMINOPHEN 325 MG TABLET 650 MG PO (20:56)
[2023-07-25] VITALS (11 sets, daily range): BP systolic 123–151; BP diastolic 80–90; PULSE 72–95; RESP 18–21; TEMP 36.1–36.7; O2SAT 98–100
[2023-07-25 03:52] LABS: Glucose Point of Care 113 mg/dl (65-105)
[2023-07-25] MEDS: traMADol HCL (*CRX) 50 MG TABLET PO ×2 (04:30→15:53)
[2023-07-25] MEDS: chlordiazePOXIDE (*CRX) 25 MG CAPSULE PO ×4 (04:34→23:45)
[2023-07-25 05:56] LABS: Basophils Percent Auto 0.6 % (0.2-1.2); Eosinophils Absolute Auto 0.2 K/mm3 (0-0.3); Eosinophils Percent Auto 3.2 % (0-4.4); Hemoglobin 9.9 g/dL (14.0-18.0); Immature Granulocyte Absolute 0.04 K/mm3 (0.00-0.031); Immature Granulocyte Percent A 0.6 % (0-0.5); Lymphocytes Absolute Auto 1.75 K/mm3 (0.9-3.2); Lymphocytes Percent Auto 28.3 % (18.3-44.2); Mean Corpuscular Hemoglobin 33.8 pg (26-34); Mean Corpuscular Volume 102.4 fl (80-100); Mean Platelet Volume 9.1 fl (7.4-10.4); Monocytes Absolute Auto 0.4 K/mm3 (0.1-0.6); Monocytes Percent Auto 6.3 % (2.6-8.5); Neutrophils Absolute Auto 3.8 K/mm3 (1.3-6.7); Platelet Count Result 246 k/mm3 (150-375); Red Blood Count 2.93 M/mm3 (4.6-6.20); Red Cell Distribution Width 11.9 % (11.5-14.5); White Blood Count 6.2 K/mm3 (4.5-10.0)
[2023-07-25 06:05] LABS: Alanine Aminotransferase 32 U/L (6-50); Albumin Level 4.1 g/dL (3.5-5.1); Alkaline Phosphatase 65 U/L (38-126); Anion Gap 10 mmol/L (8-16); Aspartate Amino Transferase 43 U/L (17-59); Bilirubin,Total 0.7 mg/dL (0.2-1.3); Blood Urea Nitrogen 14 mg/dL (9-20); Calcium 6.6 mg/dL (8.4-10.2); Carbon Dioxide 22 mmol/L (22-30); Chloride 110 mmol/L (98-107); Estimated CRCL calculation 111 ml/min; Estimated Glomerular Filt Rate > 60; Glucose 107 mg/dL (65-110); Magnesium 1.1 mg/dL (1.6-2.3); Potassium 3.6 mmol/L (3.4-5.0); Sodium 142 mmol/L (137-145)
[2023-07-25] MEDS: MAGNESIUM SULFATE 3GM/D5W100ML 3 GM/100 ML BAG IVPB (07:00)
[2023-07-25 08:00] LABS: Phosphorus 2.8 mg/dL (2.5-4.5)
[2023-07-25] MEDS: THIAMINE HCL 100 MG TABLET PO (08:23)
[2023-07-25] MEDS: FOLIC ACID 1 MG TABLET PO (08:23)
[2023-07-25] MEDS: POTASSIUM CHLORIDE 20 MEQ ER TABLET 40 MEQ PO (08:24)
[2023-07-25] MEDS: CALCIUM CARBONATE (OSCAL) 500 MG TABLET PO ×2 (08:24→15:52)
[2023-07-25] MEDS: LOSARTAN POTASSIUM 100 MG TABLET PO (08:24)
[2023-07-25] MEDS: ACETAMINOPHEN 325 MG TABLET 650 MG PO (08:24)
[2023-07-25 08:25] LABS: Parathyroid Intact 101.4 pg/mL (7.5-53.5)
[2023-07-25] MEDS: CLOTRIMAZOLE 10 MG TROC MUCOUS MEM ×3 (08:25→15:52)
[2023-07-25] MEDS: METOPROLOL SUCCINATE EXT REL 25 MG TABCR PO (08:25)
[2023-07-25] MEDS: PANTOPRAZOLE SODIUM IV 40 MG VIAL IV PUSH (08:25)
[2023-07-25 08:27] LABS: Cortisol Random 8.13 ug/dL
[2023-07-25] MEDS: CALCIUM GLUC 1,000 MG/NS 50 ML 1,000 MG/50 ML BAG 100 MG IVPB (10:44)
[2023-07-25 10:49] LABS: Potassium Urine Random 12.3 meq/L
[2023-07-25 11:18] LABS: Creatinine Urine 134.1 mg/dL; Total Protein Urine Random 9 mg/dL; Ur Ttl Prot Creatinine Ratio 0.07 mg/mg (0-0.20)
[2023-07-25 11:21] LABS: Sodium Urine Random 113 meq/L
[2023-07-25 12:48] LABS: Glucose Point of Care 100 mg/dl (65-105)
--- NOTE | 2023-07-25 13:31 | PM.IMPN ---
Progress Note: A&P Assessment and Plan (1) Hypocalcemic tetany: Code(s): E83.51 - Hypocalcemia Status: Acute (2) Hypocalcemia: Code(s): E83.51 - Hypocalcemia Status: Acute (3) EDGAR (acute kidney injury): Code(s): N17.9 - Acute kidney failure, unspecified Status: Acute (4) Hypomagnesemia with secondary hypocalcemia: Code(s): E83.42 - Hypomagnesemia; E83.51 - Hypocalcemia Status: Acute (5) Alcohol abuse: Code(s): F10.10 - Alcohol abuse, uncomplicated Status: Acute (6) Elevated lipase: Code(s): R74.8 - Abnormal levels of other serum enzymes Status: Acute (7) Anemia: Qualifiers: Anemia type: unspecified type Qualified Code(s): D64.9 - Anemia, unspecified Code(s): D64.9 - Anemia, unspecified Status: Acute (8) Essential (primary) hypertension: Code(s): I10 - Essential (primary) hypertension Status: Acute Plan This is a 43-year-old male presents to the ED as directed by his primary care because of. And experienced some numbness and tingling in his bilateral lower extremity patient. Started for which day. Social conversation 18. Will laboratory evaluation showed hypomagnesemia hypocalcemia of 5.9. Lipase is mildly elevated 355 EKG showed normal sinus rhythm a care orders. Was treated with calcium gluconate and magnesium in the ER was abdominal further treatment. Has had mild EDGAR with creatinine 1 point more and has mild anemia 10.9. Chronic alcohol abuse. Nutritional deficiency likely related to chronic alcohol abuse. Hypertension home medication hydrochlorothiazide 25 mg daily losartan 100 mg daily and metoprolol 25 mg daily Replace lytes as tolerated Chronic alcohol abuse on CIWA protocol with Librium Elevated lipase: 355. CT abdomen with normal pancreas. Diffuse hepatic steatosis. Advanced diet as tolerated. EDGAR creatinine 2.4 which has improved Right knee pain tender suprapatellar area likely bursitis/ligamentous injury. Ice pack ibuprofen prn tramadol p.r.n. DVT prophylaxis SCDs/Lovenox Code status full code Subjective Date/time seen: 07/25/23 13:31 Interval history: Reports right knee pain and some swelling. Denies any fever chills. Some numbness in the extremities present. Review of Systems Review of Systems: All systems reviewed & are unremarkable except as noted in HPI and below Exam Narrative: GENERAL: Well-appearing, well-nourished and in no acute distress. HEENT: Head normocephalic, atraumatic. Mild conjunctival pallor. NECK: Supple, full, normal range of motion, CARDIAC: Regular rate and rhythm RESPIRATORY: Speaking in full sentences, no respiratory distress ABDOMEN: Soft, obese, EXTREMITIES: Normal range of motion. Occasional involuntary movements of bilateral lower extremities, jerking. Right knee with tender suprapatellar area NEUROLOGICAL: Normal speech. Alert. SKIN: Warm, dry, normal color. Objective Data Vital Signs Vital Signs: Vital Signs - 24 hr 07/24/23 14:00 07/24/23 16:00 07/24/23 20:00 Temperature 97.7 F Pulse Rate 93 82 83 Respiratory Rate 16 Blood Pressure 141/85 H Pulse Oximetry 100 Oxygen Delivery 07/24/23 22:00 07/25/23 00:00 07/25/23 04:00 Temperature 97.3 F L Pulse Rate 92 80 87 Respiratory Rate 20 Blood Pressure 147/90 H Pulse Oximetry 99 Oxygen Delivery 07/25/23 06:00 07/25/23 08:25 07/25/23 08:05 Temperature 97.0 F L Pulse Rate 73 72 Respiratory Rate 21 H Blood Pressure 137/90 Pulse Oximetry 100 99 Oxygen Delivery Room Air Intake/Output Intake/Output: Intake & Output 07/22/23 07/23/23 07/24/23 07/25/23 23:59 23:59 23:59 23:59 Intake Total 840 2843.2 1186 Balance 840 2843.2 1186 Meds/Results Medications: Active Medications Generic Name Dose Route Start Last Admin Trade Name Freq PRN Reason Stop Dose Admin Acetaminophen 650 mg 07/23/23 13:28 07/25/23 08:24 Aceta
[2023-07-25 14:12] LABS: Albumin Level 4.6 g/dL (3.5-5.1); Anion Gap 10 mmol/L (8-16); Blood Urea Nitrogen 14 mg/dL (9-20); Calcium 7.4 mg/dL (8.4-10.2); Carbon Dioxide 24 mmol/L (22-30); Chloride 108 mmol/L (98-107); Estimated CRCL calculation 96 ml/min; Estimated Glomerular Filt Rate 56; Glucose 128 mg/dL (65-110); Magnesium 1.5 mg/dL (1.6-2.3); Phosphorus 2.2 mg/dL (2.5-4.5); Potassium 4.7 mmol/L (3.4-5.0); Sodium 142 mmol/L (137-145)
[2023-07-25 15:07] LABS: HIV 1/2 Ab P24 Ag Result Negative (Negative)
[2023-07-25] MEDS: MAGNESIUM OXIDE 400 MG TABLET PO (15:53)
[2023-07-25 16:19] LABS: Complement C3 196 mg/dL (88-165)
[2023-07-25] MEDS: IBUPROFEN 600 MG TABLET PO (18:08)
--- NOTE | 2023-07-25 21:14 | P.PNNP_ITS ---
Progress Note: A&P Assessment and Plan (1) Hypocalcemia: Code(s): E83.51 - Hypocalcemia Status: Acute Assessment and Plan: * symptomatic on presentation * PTH 101 * vit d 53.5 * check 1,25 vit d. * check urine calcium * possibly due to low magnesium * received IV calcium and now on po calcium * presumably precipitated by low magnesium * await urine electrolytes, SPEP, UPEP...etc * calcium is better. (2) Hypomagnesemia: Code(s): E83.42 - Hypomagnesemia Status: Acute Assessment and Plan: * etiology? * poor oral intake? * renal wasting syndrome? -- although no associated hypokalemia * alcohol use? * replace IV and oral as tolerated * mg still low. * check urine mg (3) EDGAR (acute kidney injury): Code(s): N17.9 - Acute kidney failure, unspecified Status: Acute Assessment and Plan: * resolving * presumably due to volume depletion * creatinine back to normal (4) Essential (primary) hypertension: Code(s): I10 - Essential (primary) hypertension Status: Acute Assessment and Plan: * systolic ranging from 120s to 140s (5) Alcohol abuse: Code(s): F10.10 - Alcohol abuse, uncomplicated Status: Acute Assessment and Plan: * continue CIWA protocol * monitor for withdrawal Subjective Date/time seen: 07/25/23 21:14 Interval history: pt feels okay developed right knee pain overnight. no sob or cp Review of Systems Cardiovascular: Cardiovascular: Reports no additional cardiovascular co mplaints Respiratory: Respiratory: Reports no additional respiratory complaints Gastrointestinal: Gastrointestinal: Reports no additional gastrointestinal complaints Genitourinary: Genitourinary: Reports no additional male genitourinary c omplaints Exam Narrative: WDWN in NAD skin no rash head ncat lungs clear cor reg no rub abd BS+ nontender and soft ext no edema. Objective Data Vital Signs Vital Signs: Vital Signs - 24 hr 07/24/23 22:00 07/25/23 00:00 07/25/23 04:00 Temperature 97.3 F L Pulse Rate 92 80 87 Respiratory Rate 20 Blood Pressure 147/90 H Pulse Oximetry 99 Oxygen Delivery 07/25/23 06:00 07/25/23 08:25 07/25/23 08:05 Temperature 97.0 F L Pulse Rate 73 72 Respiratory Rate 21 H Blood Pressure 137/90 Pulse Oximetry 100 99 Oxygen Delivery Room Air 07/25/23 14:05 07/25/23 08:00 07/25/23 08:00 Temperature 97.9 F Pulse Rate 95 74 Respiratory Rate 18 Blood Pressure 123/80 Pulse Oximetry 100 Oxygen Delivery Room Air 07/25/23 12:00 07/25/23 16:00 07/25/23 20:00 Temperature Pulse Rate 82 88 89 Respiratory Rate Blood Pressure Pulse Oximetry Oxygen Delivery Intake/Output Intake/Output: Intake & Output 07/22/23 07/23/23 07/24/23 07/25/23 23:59 23:59 23:59 23:59 Intake Total 840 2843.2 2736 Balance 840 2843.2 2736 Meds/Results Medications:
--- NOTE | 2023-07-25 21:14 | PM.PNNEP ---
Progress Note: A&P Assessment and Plan (1) Hypocalcemia: Code(s): E83.51 - Hypocalcemia Status: Acute Assessment and Plan: symptomatic on presentation PTH 101 vit d 53.5 check 1,25 vit d. check urine calcium possibly due to low magnesium received IV calcium and now on po calcium presumably precipitated by low magnesium await urine electrolytes, SPEP, UPEP...etc calcium is better. (2) Hypomagnesemia: Code(s): E83.42 - Hypomagnesemia Status: Acute Assessment and Plan: etiology? poor oral intake? renal wasting syndrome? -- although no associated hypokalemia alcohol use? replace IV and oral as tolerated mg still low. check urine mg (3) EDGAR (acute kidney injury): Code(s): N17.9 - Acute kidney failure, unspecified Status: Acute Assessment and Plan: resolving presumably due to volume depletion creatinine back to normal (4) Essential (primary) hypertension: Code(s): I10 - Essential (primary) hypertension Status: Acute Assessment and Plan: systolic ranging from 120s to 140s (5) Alcohol abuse: Code(s): F10.10 - Alcohol abuse, uncomplicated Status: Acute Assessment and Plan: continue CIUT protocol monitor for withdrawal Subjective Date/time seen: 07/25/23 21:14 Interval history: pt feels okay developed right knee pain overnight. no sob or cp Review of Systems Cardiovascular: Cardiovascular: Reports no additional cardiovascular complaints Respiratory: Respiratory: Reports no additional respiratory complaints Gastrointestinal: Gastrointestinal: Reports no additional gastrointestinal complaints Genitourinary: Genitourinary: Reports no additional male genitourinary complaints Exam Narrative: WDWN in NAD skin no rash head ncat lungs clear cor reg no rub abd BS+ nontender and soft ext no edema. Objective Data Vital Signs Vital Signs: Vital Signs - 24 hr 07/24/23 22:00 07/25/23 00:00 07/25/23 04:00 Temperature 97.3 F L Pulse Rate 92 80 87 Respiratory Rate 20 Blood Pressure 147/90 H Pulse Oximetry 99 Oxygen Delivery 07/25/23 06:00 07/25/23 08:25 07/25/23 08:05 Temperature 97.0 F L Pulse Rate 73 72 Respiratory Rate 21 H Blood Pressure 137/90 Pulse Oximetry 100 99 Oxygen Delivery Room Air 07/25/23 14:05 07/25/23 08:00 07/25/23 08:00 Temperature 97.9 F Pulse Rate 95 74 Respiratory Rate 18 Blood Pressure 123/80 Pulse Oximetry 100 Oxygen Delivery Room Air 07/25/23 12:00 07/25/23 16:00 07/25/23 20:00 Temperature Pulse Rate 82 88 89 Respiratory Rate Blood Pressure Pulse Oximetry Oxygen Delivery Intake/Output Intake/Output: Intake & Output 07/22/23 07/23/23 07/24/23 07/25/23 23:59 23:59 23:59 23:59 Intake Total 840 2843.2 2736 Balance 840 2843.2 2736 Meds/Results Medications: Active Medications Generic Name Dose Route Start Last Admin Trade Name Freq PRN Reason Stop Dose Admin Acetaminophen 650 mg 07/23/23 13:28 07/25/23 08:24 Acetaminophen 325 Mg Tablet PO 650 mg Q4H PRN Administration Mild Pain (1-3) or Fever Calcium Carbonate 500 mg 07/25/23 08:00 07/25/23 15:52 Calcium Carbonate (Oscal) 500 Mg Tablet PO 500 mg BIDWM [facility] Administration Chlordiazepoxide HCl 25 mg 07/23/23 18:00 07/25/23 18:08 Chlordiazepoxide (*Crx) 25 Mg Capsule PO 25 mg Q6HR [facility] Administration Clotrimazole 10 mg 07/23/23 17:30 07/25/23 15:52 Clotrimazole 10 Mg Troc MUCOUS MEM 10 mg TID [facility] Administration Ergocalciferol 50,000 units 07/26/23 09:00 Ergocalciferol 50,000 Units Capsule PO Belle@0900 [facility] Folic Acid 1 mg 07/24/23 09:00 07/25/23 08:23 Folic Acid 1 Mg Tablet PO 1 mg DAILY [facility] Administration Hydrochlorothiazide 25 mg 07/24/23 09:00 Hydrochlorothiazide 25 Mg Tablet PO DAILY [facility] Losartan Potassium 100
[2023-07-26] VITALS (11 sets, daily range): BP systolic 134–147; BP diastolic 90–97; PULSE 75–99; RESP 18–21; TEMP 36.2–36.8; O2SAT 100
[2023-07-26] MEDS: chlordiazePOXIDE (*CRX) 25 MG CAPSULE PO ×3 (05:36→21:08)
[2023-07-26] MEDS: traMADol HCL (*CRX) 50 MG TABLET PO ×3 (05:38→21:08)
[2023-07-26 06:17] LABS: Basophils Absolute Auto 0.1 K/mm3 (0.0-0.1); Basophils Percent Auto 0.7 % (0.2-1.2); Eosinophils Absolute Auto 0.2 K/mm3 (0-0.3); Eosinophils Percent Auto 2.7 % (0-4.4); Immature Granulocyte Absolute 0.06 K/mm3 (0.00-0.031); Immature Granulocyte Percent A 0.7 % (0-0.5); Lymphocytes Absolute Auto 2.33 K/mm3 (0.9-3.2); Lymphocytes Percent Auto 27.5 % (18.3-44.2); Mean Corpuscular HGB Conc 33.3 g/dl (32-36); Mean Corpuscular Hemoglobin 34.4 pg (26-34); Mean Corpuscular Volume 103.1 fl (80-100); Mean Platelet Volume 9.1 fl (7.4-10.4); Monocytes Absolute Auto 0.5 K/mm3 (0.1-0.6); Monocytes Percent Auto 6.4 % (2.6-8.5); Neutrophils Absolute Auto 5.2 K/mm3 (1.3-6.7); Platelet Count Result 250 k/mm3 (150-375); Red Blood Count 2.91 M/mm3 (4.6-6.20); Red Cell Distribution Width 11.9 % (11.5-14.5); White Blood Count 8.5 K/mm3 (4.5-10.0)
[2023-07-26 06:31] LABS: Alanine Aminotransferase 30 U/L (6-50); Albumin Level 4.2 g/dL (3.5-5.1); Alkaline Phosphatase 61 U/L (38-126); Anion Gap 9 mmol/L (8-16); Aspartate Amino Transferase 34 U/L (17-59); Bilirubin,Total 0.4 mg/dL (0.2-1.3); Blood Urea Nitrogen 18 mg/dL (9-20); Carbon Dioxide 24 mmol/L (22-30); Chloride 108 mmol/L (98-107); Estimated CRCL calculation 96 ml/min; Estimated Glomerular Filt Rate 56; Glucose 98 mg/dL (65-110); Magnesium 1.4 mg/dL (1.6-2.3); Phosphorus 2.8 mg/dL (2.5-4.5); Potassium 4.1 mmol/L (3.4-5.0); Sodium 141 mmol/L (137-145)
[2023-07-26] MEDS: MAGNESIUM OXIDE 400 MG TABLET PO (09:10)
[2023-07-26] MEDS: CLOTRIMAZOLE 10 MG TROC MUCOUS MEM ×3 (09:10→17:57)
[2023-07-26] MEDS: FOLIC ACID 1 MG TABLET PO (09:10)
[2023-07-26] MEDS: THIAMINE HCL 100 MG TABLET PO (09:10)
[2023-07-26] MEDS: CALCIUM CARBONATE (OSCAL) 500 MG TABLET PO (09:10)
[2023-07-26] MEDS: LOSARTAN POTASSIUM 100 MG TABLET PO (09:10)
[2023-07-26] MEDS: METOPROLOL SUCCINATE EXT REL 25 MG TABCR PO ×2 (09:10→14:09)
[2023-07-26] MEDS: PANTOPRAZOLE SODIUM IV 40 MG VIAL IV PUSH (09:11)
[2023-07-26] MEDS: CALCIUM GLUC 1,000 MG/NS 50 ML 1,000 MG/50 ML BAG 100 MG IVPB (09:34)
[2023-07-26] MEDS: MAGNESIUM SULF 2 GM/WATER 50ML 2 GM/50 ML BAG IVPB (09:35)
[2023-07-26] MEDS: ERGOCALCIFEROL 50,000 UNITS CAPSULE 50000 UNITS PO (09:37)
--- NOTE | 2023-07-26 13:28 | PM.IMPN ---
Progress Note: A&P Assessment and Plan (1) Hypocalcemic tetany: Code(s): E83.51 - Hypocalcemia Status: Acute (2) Hypocalcemia: Code(s): E83.51 - Hypocalcemia Status: Acute (3) EDGAR (acute kidney injury): Code(s): N17.9 - Acute kidney failure, unspecified Status: Acute (4) Hypomagnesemia with secondary hypocalcemia: Code(s): E83.42 - Hypomagnesemia; E83.51 - Hypocalcemia Status: Acute (5) Alcohol abuse: Code(s): F10.10 - Alcohol abuse, uncomplicated Status: Acute (6) Elevated lipase: Code(s): R74.8 - Abnormal levels of other serum enzymes Status: Acute (7) Anemia: Qualifiers: Anemia type: unspecified type Qualified Code(s): D64.9 - Anemia, unspecified Code(s): D64.9 - Anemia, unspecified Status: Acute (8) Essential (primary) hypertension: Code(s): I10 - Essential (primary) hypertension Status: Acute Plan This is a 43-year-old male presents to the ED as directed by his primary care because of. And experienced some numbness and tingling in his bilateral lower extremity patient. Started for which day. Social conversation 18. Will laboratory evaluation showed hypomagnesemia hypocalcemia of 5.9. Lipase is mildly elevated 355 EKG showed normal sinus rhythm a care orders. Was treated with calcium gluconate and magnesium in the ER was abdominal further treatment. Has had mild EDGAR with creatinine 1 point more and has mild anemia 10.9. Chronic alcohol abuse. Nutritional deficiency likely related to chronic alcohol abuse. Hypertension home medication hydrochlorothiazide 25 mg daily losartan 100 mg daily and metoprolol 25 mg daily Replace lytes as tolerated Chronic alcohol abuse on CIWA protocol with Librium Elevated lipase: 355. CT abdomen with normal pancreas. Diffuse hepatic steatosis. Advanced diet as tolerated. EDGAR creatinine 2.4 which has improved Right knee pain tender suprapatellar area likely bursitis/ligamentous injury. Ice pack ibuprofen prn tramadol p.r.n. ibuprofen help. With renal failure avoid NSAIDs. Will give prednisone 40 mg daily DVT prophylaxis SCDs/Lovenox Code status full code Subjective Date/time seen: 07/26/23 13:28 Interval history: Right knee pain helped with ibuprofen still sore x-ray reviewed with the patient labs reviewed Review of Systems Review of Systems: All systems reviewed & are unremarkable except as noted in HPI and below Exam Narrative: GENERAL: Well-appearing, well-nourished and in no acute distress. HEENT: Head normocephalic, atraumatic. Mild conjunctival pallor. NECK: Supple, full, normal range of motion, CARDIAC: Regular rate and rhythm RESPIRATORY: Speaking in full sentences, no respiratory distress ABDOMEN: Soft, obese, EXTREMITIES: Normal range of motion. Occasional involuntary movements of bilateral lower extremities, jerking. Right knee with tender suprapatellar area NEUROLOGICAL: Normal speech. Alert. SKIN: Warm, dry, normal color. Objective Data Vital Signs Vital Signs: Vital Signs - 24 hr 07/25/23 14:05 07/25/23 16:00 07/25/23 20:00 Temperature 97.9 F Pulse Rate 95 88 89 Respiratory Rate 18 Blood Pressure 123/80 Pulse Oximetry 100 07/26/23 00:00 07/25/23 22:00 07/26/23 04:00 Temperature 98.0 F Pulse Rate 77 86 75 Respiratory Rate 20 Blood Pressure 151/86 H Pulse Oximetry 98 07/26/23 06:00 07/26/23 09:10 Temperature 97.1 F L Pulse Rate 78 96 Respiratory Rate 21 H Blood Pressure 147/97 H Pulse Oximetry 100 Intake/Output Intake/Output: Intake & Output 07/23/23 07/24/23 07/25/23 07/26/23 23:59 23:59 23:59 23:59 Intake Total 840 2843.2 2736 1206 Output Total 900 Balance 840 2843.2 2736 306 Meds/Results Medications: Active Medications Generic Name Dose Route Start Last Admin Trade Name Freq PRN Reason Stop Dose Admin Acetaminophen 650 mg 07/23/23 13:28 07/25/23 08:24 Chintan
[2023-07-26] MEDS: CALCIUM CARBONATE (OSCAL) 500 MG TABLET 1000 MG PO ×2 (13:30→17:59)
--- NOTE | 2023-07-26 13:35 | P.PNNP_ITS ---
Progress Note: A&P Assessment and Plan (1) Hypocalcemia: Code(s): E83.51 - Hypocalcemia Status: Acute Assessment and Plan: * symptomatic on presentation * PTH 101 * vit d 53.5 * 1,25 vit d pending * urine calcium Pending * ionized calcium pending. Notably albumin is normal * possibly due to low magnesium * received IV calcium and now on po calcium * await urine electrolytes, SPEP, UPEP...etc * calcium is 7.0 today. (2) Hypomagnesemia: Code(s): E83.42 - Hypomagnesemia Status: Acute Assessment and Plan: * etiology? * poor oral intake? * renal wasting syndrome? -- although no associated hypokalemia * alcohol use? * the patient is also on pantoprazole which can do this. Consider switching to Pepcid? * replace IV and oral as tolerated * mg still low. supplement ordered by hospitalist. * urine mg Pending (3) EDGAR (acute kidney injury): Code(s): N17.9 - Acute kidney failure, unspecified Status: Acute Assessment and Plan: * resolving * presumably due to volume depletion * creatinine back to normal (4) Essential (primary) hypertension: Code(s): I10 - Essential (primary) hypertension Status: Acute Assessment and Plan: * systolic ranging from 140s to 150s for the most part. * taking hctz, losartan, metoprolol. will increase the latter. (5) Alcohol abuse: Code(s): F10.10 - Alcohol abuse, uncomplicated Status: Acute Assessment and Plan: * continue CIIN protocol * monitor for withdrawal Subjective Date/time seen: 07/26/23 13:35 Interval history: Patient is feeling a little bit better today. His right knee still hurts. He received some ibuprofen yesterday which helped. For because of his kidneys he was switched to prednisone for now. Exam Narrative: WDWN in NAD skin no rash head ncat lungs clear cor reg no rub abd BS+ nontender and soft ext no edema. Objective Data Vital Signs Vital Signs: Vital Signs - 24 hr 07/25/23 14:05 07/25/23 16:00 07/25/23 20:00 Temperature 97.9 F Pulse Rate 95 88 89 Respiratory Rate 18 Blood Pressure 123/80 Pulse Oximetry 100 07/26/23 00:00 07/25/23 22:00 07/26/23 04:00 Temperature 98.0 F Pulse Rate 77 86 75 Respiratory Rate 20 Blood Pressure 151/86 H Pulse Oximetry 98 07/26/23 06:00 07/26/23 09:10 Temperature 97.1 F L Pulse Rate 78 96 Respiratory Rate 21 H Blood Pressure 147/97 H Pulse Oximetry 100 Intake/Output Intake/Output: Intake & Output 07/23/23 07/24/23 07/25/23 07/26/23 23:59 23:59 23:59 23:59 Intake Total 840 2843.2 2736 1206 Output Total 900 Balance 840 2843.2 2736 306 Meds/Results Medications: Active Medications Generic Name Dose Route Start Last Admin Trade Name Freq PRN Reason Stop Dose Admin Acetaminophen 650 mg 07/23/23 13:28 07/25/23 08:24 Acetaminophen 325 Mg Tablet PO 650 mg Q4H PRN Administration Mild Pain (1-3) or Fever Calcium Carbonate 1,000 mg 07/26/23 12:30 07/26/23
--- NOTE | 2023-07-26 13:35 | PM.PNNEP ---
Progress Note: A&P Assessment and Plan (1) Hypocalcemia: Code(s): E83.51 - Hypocalcemia Status: Acute Assessment and Plan: symptomatic on presentation PTH 101 vit d 53.5 1,25 vit d pending urine calcium Pending ionized calcium pending. Notably albumin is normal possibly due to low magnesium received IV calcium and now on po calcium await urine electrolytes, SPEP, UPEP...etc calcium is 7.0 today. (2) Hypomagnesemia: Code(s): E83.42 - Hypomagnesemia Status: Acute Assessment and Plan: etiology? poor oral intake? renal wasting syndrome? -- although no associated hypokalemia alcohol use? the patient is also on pantoprazole which can do this. Consider switching to Pepcid? replace IV and oral as tolerated mg still low. supplement ordered by hospitalist. urine mg Pending (3) EDGAR (acute kidney injury): Code(s): N17.9 - Acute kidney failure, unspecified Status: Acute Assessment and Plan: resolving presumably due to volume depletion creatinine back to normal (4) Essential (primary) hypertension: Code(s): I10 - Essential (primary) hypertension Status: Acute Assessment and Plan: systolic ranging from 140s to 150s for the most part. taking hctz, losartan, metoprolol. will increase the latter. (5) Alcohol abuse: Code(s): F10.10 - Alcohol abuse, uncomplicated Status: Acute Assessment and Plan: continue [facility] protocol monitor for withdrawal Subjective Date/time seen: 07/26/23 13:35 Interval history: Patient is feeling a little bit better today. His right knee still hurts. He received some ibuprofen yesterday which helped. For because of his kidneys he was switched to prednisone for now. Exam Narrative: WDWN in NAD skin no rash head ncat lungs clear cor reg no rub abd BS+ nontender and soft ext no edema. Objective Data Vital Signs Vital Signs: Vital Signs - 24 hr 07/25/23 14:05 07/25/23 16:00 07/25/23 20:00 Temperature 97.9 F Pulse Rate 95 88 89 Respiratory Rate 18 Blood Pressure 123/80 Pulse Oximetry 100 07/26/23 00:00 07/25/23 22:00 07/26/23 04:00 Temperature 98.0 F Pulse Rate 77 86 75 Respiratory Rate 20 Blood Pressure 151/86 H Pulse Oximetry 98 07/26/23 06:00 07/26/23 09:10 Temperature 97.1 F L Pulse Rate 78 96 Respiratory Rate 21 H Blood Pressure 147/97 H Pulse Oximetry 100 Intake/Output Intake/Output: Intake & Output 07/23/23 07/24/23 07/25/23 07/26/23 23:59 23:59 23:59 23:59 Intake Total 840 2843.2 2736 1206 Output Total 900 Balance 840 2843.2 2736 306 Meds/Results Medications: Active Medications Generic Name Dose Route Start Last Admin Trade Name Freq PRN Reason Stop Dose Admin Acetaminophen 650 mg 07/23/23 13:28 07/25/23 08:24 Acetaminophen 325 Mg Tablet PO 650 mg Q4H PRN Administration Mild Pain (1-3) or Fever Calcium Carbonate 1,000 mg 07/26/23 12:30 07/26/23 13:30 Calcium Carbonate (Oscal) 500 Mg Tablet PO 1,000 mg TIDWM [facility] Administration Chlordiazepoxide HCl 25 mg 07/26/23 14:00 Chlordiazepoxide (*Crx) 25 Mg Capsule PO Q8HR [facility] Clotrimazole 10 mg 07/23/23 17:30 07/26/23 13:30 Clotrimazole 10 Mg Troc MUCOUS MEM 10 mg TID [facility] Administration Ergocalciferol 50,000 units 07/26/23 09:00 07/26/23 09:37 Ergocalciferol 50,000 Units Capsule PO 50,000 units Belle@0900 [facility] Administration Folic Acid 1 mg 07/24/23 09:00 07/26/23 09:10 Folic Acid 1 Mg Tablet PO 1 mg DAILY [facility] Administration Hydrochlorothiazide 25 mg 07/24/23 09:00 Hydrochlorothiazide 25 Mg Tablet PO DAILY [facility] Losartan Potassium 100 mg 07/24/23 09:00 07/26/23 09:10 Losartan Potassium 100 Mg Tablet PO 100 mg DAILY [facility] Administration Magnesium Oxide 800 mg 07/26/23 17:00 Magnesium Oxide 400 Mg Tablet PO BID [facility] Metoprol
[2023-07-26] MEDS: predniSONE 20 MG TABLET 40 MG PO (14:09)
[2023-07-26] MEDS: MAGNESIUM OXIDE 400 MG TABLET 800 MG PO (17:58)
[2023-07-26 21:19] LABS: Glucose Point of Care 224 mg/dl (65-105)
[2023-07-27] VITALS (10 sets, daily range): BP systolic 116–131; BP diastolic 69–77; PULSE 68–99; RESP 16–18; TEMP 36.4–36.9; O2SAT 99–100
[2023-07-27] MEDS: chlordiazePOXIDE (*CRX) 25 MG CAPSULE PO ×2 (05:27→22:02)
[2023-07-27] MEDS: traMADol HCL (*CRX) 50 MG TABLET PO ×3 (05:27→22:02)
[2023-07-27 06:04] LABS: Creatinine Urine 36.5 mg/dL
[2023-07-27 06:21] LABS: Alanine Aminotransferase 26 U/L (6-50); Albumin Level 3.9 g/dL (3.5-5.1); Alkaline Phosphatase 61 U/L (38-126); Anion Gap 9 mmol/L (8-16); Aspartate Amino Transferase 29 U/L (17-59); Bilirubin,Total 0.4 mg/dL (0.2-1.3); Blood Urea Nitrogen 19 mg/dL (9-20); Calcium 7.5 mg/dL (8.4-10.2); Carbon Dioxide 23 mmol/L (22-30); Chloride 106 mmol/L (98-107); Creatine Kinase 62 U/L (55-170); Estimated CRCL calculation 132 ml/min; Estimated Glomerular Filt Rate > 60; Glucose 124 mg/dL (65-110); Magnesium 1.4 mg/dL (1.6-2.3); Phosphorus 2.3 mg/dL (2.5-4.5); Potassium 4.3 mmol/L (3.4-5.0); Sodium 138 mmol/L (137-145)
[2023-07-27 06:24] LABS: Iron 52 ug/dL (49-181)
[2023-07-27 06:33] LABS: Percent Iron Saturation 20 % (20-50)
[2023-07-27 06:55] LABS: Creatinine 24 Hour Urine 1.2 gm/24 (1.0-2.0); Total Volume 24 Hour Urine 3500 ml
[2023-07-27] MEDS: CLOTRIMAZOLE 10 MG TROC MUCOUS MEM ×3 (09:03→17:41)
[2023-07-27] MEDS: METOPROLOL SUCCINATE EXT REL 50 MG TABCR PO (09:03)
[2023-07-27] MEDS: PANTOPRAZOLE SODIUM IV 40 MG VIAL IV PUSH (09:03)
[2023-07-27] MEDS: MAGNESIUM OXIDE 400 MG TABLET 800 MG PO ×3 (09:04→22:02)
[2023-07-27] MEDS: LOSARTAN POTASSIUM 100 MG TABLET PO (09:04)
[2023-07-27] MEDS: predniSONE 20 MG TABLET 40 MG PO (09:04)
[2023-07-27] MEDS: CALCIUM CARBONATE (OSCAL) 500 MG TABLET 1000 MG PO ×3 (09:04→17:40)
[2023-07-27] MEDS: THIAMINE HCL 100 MG TABLET PO (09:04)
[2023-07-27] MEDS: POTASSIUM PHOS/SODIUM PHOS 250 MG TABLET PO (09:05)
[2023-07-27] MEDS: FOLIC ACID 1 MG TABLET PO (09:05)
[2023-07-27] MEDS: MAGNESIUM SULF 2 GM/WATER 50ML 2 GM/50 ML BAG IVPB (09:07)
--- NOTE | 2023-07-27 12:31 | P.PNNP_ITS ---
Progress Note: A&P Assessment and Plan (1) Hypocalcemia: Code(s): E83.51 - Hypocalcemia Status: Acute Assessment and Plan: * symptomatic on presentation * testing to date noted - PTH 101and vitamin D 53.5 * 24hr urine calcium pending * possibly due to low magnesium * received IV calcium and now on po calcium supplementation * follow trend of repea calcium (2) Hypomagnesemia: Code(s): E83.42 - Hypomagnesemia Status: Acute Assessment and Plan: * etiology? * poor oral intake? versus renal wasting syndrome? (although no associated hypokalemia) versus chronic alcohol use? * on pantoprazole which can do this -- consider switching to Pepcid? * replace IV and oral as tolerated; on scheduled oral replacement as well * 24hr urine magnesium pending (3) EDGAR (acute kidney injury): Code(s): N17.9 - Acute kidney failure, unspecified Status: Acute Assessment and Plan: * resolving * presumably due to volume depletion * creatinine back to normal (4) Essential (primary) hypertension: Code(s): I10 - Essential (primary) hypertension Status: Acute Assessment and Plan: * reasonable control * on losartan and metoprolol * follow trend of hemodynamics (5) Alcohol abuse: Code(s): F10.10 - Alcohol abuse, uncomplicated Status: Acute Assessment and Plan: * continue CIUT protocol * monitor for withdrawal Will continue to follow. Subjective Date/time seen: 07/27/23 12:31 Interval history: Follow-up for acute kidney injury/acute renal failure, hypocalcemia, and hypomagnesemia. Chart reviewed since last seen -- hypocalcemia and hypomagnesemia seems to be trending better with oral supplementation but still requiring IV replacement at times; right knee seems to be doing better with current therapy/interventions; no apparent distress noted. Exam Narrative: General: WD/WN male in NAD Heart: normal S1 and S2; no rub Lungs: clear to auscultation Abdomen: soft, nontender, nondistended, positive bowel sounds Extremities: no cyanosis or clubbing; no edema Skin: warm and dry Objective Data Vital Signs Vital Signs: Vital Signs Temp Pulse Resp BP Pulse Ox 07/27/23 12:00 97.5 F L 99 18 122/77 99 07/27/23 09:03 76 07/27/23 05:14 98.4 F 77 18 116/69 99 07/27/23 04:00 75 07/27/23 00:00 78 07/26/23 20:00 89 07/26/23 19:46 97.6 F 75 18 146/90 H 100 Intake/Output Intake/Output: Intake & Output 07/24/23 07/25/23 07/26/23 07/27/23 23:59 23:59 23:59 23:59 Intake Total 2843.2 2736 2276 1450 Output Total 1450 Balance 2843.2 2736 826 1450 Meds/Results Medications: Active Medications Generic Name Dose Route Start Last Admin Trade Name Freq PRN Reason Stop Dose Admin Acetaminophen 650 mg 07/23/23 13:28 07/25/23 08:24 Acetaminophen 325 Mg Tablet PO 650 mg Q4H PRN Administration Mild Pain (1-3) or Fever Calcium Carbonate 1,000 mg 07/26/23 12:30 07/27/23 14:10 Calcium Carbonate (Oscal) 500 Mg Tablet PO 1,000 mg TIDWM [facility] Administration Chlordiazepoxide HCl
--- NOTE | 2023-07-27 12:31 | PM.PNNEP ---
Progress Note: A&P Assessment and Plan (1) Hypocalcemia: Code(s): E83.51 - Hypocalcemia Status: Acute Assessment and Plan: symptomatic on presentation testing to date noted - PTH 101and vitamin D 53.5 24hr urine calcium pending possibly due to low magnesium received IV calcium and now on po calcium supplementation follow trend of repea calcium (2) Hypomagnesemia: Code(s): E83.42 - Hypomagnesemia Status: Acute Assessment and Plan: etiology? poor oral intake? versus renal wasting syndrome? (although no associated hypokalemia) versus chronic alcohol use? on pantoprazole which can do this -- consider switching to Pepcid? replace IV and oral as tolerated; on scheduled oral replacement as well 24hr urine magnesium pending (3) EDGAR (acute kidney injury): Code(s): N17.9 - Acute kidney failure, unspecified Status: Acute Assessment and Plan: resolving presumably due to volume depletion creatinine back to normal (4) Essential (primary) hypertension: Code(s): I10 - Essential (primary) hypertension Status: Acute Assessment and Plan: reasonable control on losartan and metoprolol follow trend of hemodynamics (5) Alcohol abuse: Code(s): F10.10 - Alcohol abuse, uncomplicated Status: Acute Assessment and Plan: continue [facility] protocol monitor for withdrawal Will continue to follow. Subjective Date/time seen: 07/27/23 12:31 Interval history: Follow-up for acute kidney injury/acute renal failure, hypocalcemia, and hypomagnesemia. Chart reviewed since last seen -- hypocalcemia and hypomagnesemia seems to be trending better with oral supplementation but still requiring IV replacement at times; right knee seems to be doing better with current therapy/interventions; no apparent distress noted. Exam Narrative: General: WD/WN male in NAD Heart: normal S1 and S2; no rub Lungs: clear to auscultation Abdomen: soft, nontender, nondistended, positive bowel sounds Extremities: no cyanosis or clubbing; no edema Skin: warm and dry Objective Data Vital Signs Vital Signs: Vital Signs Temp Pulse Resp BP Pulse Ox 07/27/23 12:00 97.5 F L 99 18 122/77 99 07/27/23 09:03 76 07/27/23 05:14 98.4 F 77 18 116/69 99 07/27/23 04:00 75 07/27/23 00:00 78 07/26/23 20:00 89 07/26/23 19:46 97.6 F 75 18 146/90 H 100 Intake/Output Intake/Output: Intake & Output 07/24/23 07/25/23 07/26/23 07/27/23 23:59 23:59 23:59 23:59 Intake Total 2843.2 2736 2276 1450 Output Total 1450 Balance 2843.2 2736 826 1450 Meds/Results Medications: Active Medications Generic Name Dose Route Start Last Admin Trade Name Freq PRN Reason Stop Dose Admin Acetaminophen 650 mg 07/23/23 13:28 07/25/23 08:24 Acetaminophen 325 Mg Tablet PO 650 mg Q4H PRN Administration Mild Pain (1-3) or Fever Calcium Carbonate 1,000 mg 07/26/23 12:30 07/27/23 14:10 Calcium Carbonate (Oscal) 500 Mg Tablet PO 1,000 mg TIDWM [facility] Administration Chlordiazepoxide HCl 25 mg 07/27/23 18:00 Chlordiazepoxide (*Crx) 25 Mg Capsule PO Q12H [facility] Clotrimazole 10 mg 07/23/23 17:30 07/27/23 14:11 Clotrimazole 10 Mg Troc MUCOUS MEM 10 mg TID [facility] Administration Ergocalciferol 50,000 units 07/26/23 09:00 07/26/23 09:37 Ergocalciferol 50,000 Units Capsule PO 50,000 units Belle@0900 [facility] Administration Folic Acid 1 mg 07/24/23 09:00 07/27/23 09:05 Folic Acid 1 Mg Tablet PO 1 mg DAILY [facility] Administration Hydrochlorothiazide 25 mg 07/24/23 09:00 Hydrochlorothiazide 25 Mg Tablet PO DAILY [facility] Losartan Potassium 100 mg 07/24/23 09:00 07/27/23 09:04 Losartan Potassium 100 Mg Tablet PO 100 mg DAILY [facility] Administration Magnesium Oxide 800 mg 07/26/23 17:00 07/27/23 09:04 Magnesium Oxide 400 Mg Tablet PO 800 mg BID S
--- NOTE | 2023-07-27 13:21 | PM.IMPN ---
Progress Note: A&P Assessment and Plan (1) Hypocalcemic tetany: Code(s): E83.51 - Hypocalcemia Status: Acute (2) Hypocalcemia: Code(s): E83.51 - Hypocalcemia Status: Acute (3) EDGAR (acute kidney injury): Code(s): N17.9 - Acute kidney failure, unspecified Status: Acute (4) Hypomagnesemia with secondary hypocalcemia: Code(s): E83.42 - Hypomagnesemia; E83.51 - Hypocalcemia Status: Acute (5) Alcohol abuse: Code(s): F10.10 - Alcohol abuse, uncomplicated Status: Acute (6) Elevated lipase: Code(s): R74.8 - Abnormal levels of other serum enzymes Status: Acute (7) Anemia: Qualifiers: Anemia type: unspecified type Qualified Code(s): D64.9 - Anemia, unspecified Code(s): D64.9 - Anemia, unspecified Status: Acute (8) Essential (primary) hypertension: Code(s): I10 - Essential (primary) hypertension Status: Acute Plan This is a 43-year-old male presents to the ED as directed by his primary care because of. And experienced some numbness and tingling in his bilateral lower extremity patient. Started for which day. Social conversation 18. Will laboratory evaluation showed hypomagnesemia hypocalcemia of 5.9. Lipase is mildly elevated 355 EKG showed normal sinus rhythm a care orders. Was treated with calcium gluconate and magnesium in the ER was abdominal further treatment. Has had mild EDGAR with creatinine 1 point more and has mild anemia 10.9. Chronic alcohol abuse. Nutritional deficiency likely related to chronic alcohol abuse. Hypertension home medication hydrochlorothiazide 25 mg daily losartan 100 mg daily and metoprolol 25 mg daily Replace lytes as tolerated Chronic alcohol abuse on CIWA protocol with Librium will continue taper Librium Elevated lipase: 355. CT abdomen with normal pancreas. Diffuse hepatic steatosis. Advanced diet as tolerated. EDGAR creatinine 2.4 which has improved Right knee pain tender suprapatellar area likely bursitis/ligamentous injury. Ice pack ibuprofen prn tramadol p.r.n. ibuprofen help. With renal failure avoid NSAIDs. Will give prednisone 40 mg daily. Improving DVT prophylaxis SCDs/Lovenox Code status full code Subjective Date/time seen: 01/29/24 13:21 Interval history: Right knee is feeling better. Less painful. Denies any new complaints. Discussed with Nephrology. Review of Systems Review of Systems: All systems reviewed & are unremarkable except as noted in HPI and below Exam Narrative: GENERAL: Well-appearing, well-nourished and in no acute distress. HEENT: Head normocephalic, atraumatic. Mild conjunctival pallor. NECK: Supple, full, normal range of motion, CARDIAC: Regular rate and rhythm RESPIRATORY: Speaking in full sentences, no respiratory distress ABDOMEN: Soft, obese, EXTREMITIES: Normal range of motion. Occasional involuntary movements of bilateral lower extremities, jerking. Right knee with tender suprapatellar area NEUROLOGICAL: Normal speech. Alert. SKIN: Warm, dry, normal color. Objective Data Vital Signs Vital Signs: Vital Signs - 24 hr 07/26/23 13:59 07/26/23 14:09 07/26/23 16:00 Temperature 98.2 F Pulse Rate 92 92 92 Respiratory Rate 18 Blood Pressure 134/93 H Pulse Oximetry 100 07/26/23 19:46 07/26/23 20:00 07/27/23 00:00 Temperature 97.6 F Pulse Rate 75 89 78 Respiratory Rate 18 Blood Pressure 146/90 H Pulse Oximetry 100 07/27/23 04:00 07/27/23 05:14 07/27/23 09:03 Temperature 98.4 F Pulse Rate 75 77 76 Respiratory Rate 18 Blood Pressure 116/69 Pulse Oximetry 99 Intake/Output Intake/Output: Intake & Output 07/24/23 07/25/23 07/26/23 07/27/23 23:59 23:59 23:59 23:59 Intake Total 2843.2 2736 2276 800 Output Total 1450 Balance 2843.2 2736 826 800 Meds/Results Medications: Active Medications Generic Name Dose Route Start Last Admin Trade Name Freq PRN Reason Stop Dose A
[2023-07-28] VITALS (7 sets, daily range): BP systolic 136–143; BP diastolic 83–89; PULSE 74–97; RESP 18; TEMP 36.6–36.7; O2SAT 98–100
[2023-07-28] MEDS: traMADol HCL (*CRX) 50 MG TABLET PO (05:26)
[2023-07-28 06:20] LABS: Basophils Absolute Auto 0.1 K/mm3 (0.0-0.1); Basophils Percent Auto 0.4 % (0.2-1.2); Eosinophils Absolute Auto 0.1 K/mm3 (0-0.3); Eosinophils Percent Auto 0.9 % (0-4.4); Hematocrit 30.1 % (42.0-52.0); Hemoglobin 9.6 g/dL (14.0-18.0); Immature Granulocyte Absolute 0.13 K/mm3 (0.00-0.031); Immature Granulocyte Percent A 1.1 % (0-0.5); Lymphocytes Absolute Auto 3.25 K/mm3 (0.9-3.2); Lymphocytes Percent Auto 28.6 % (18.3-44.2); Mean Corpuscular HGB Conc 31.9 g/dl (32-36); Mean Corpuscular Hemoglobin 33.6 pg (26-34); Mean Corpuscular Volume 105.2 fl (80-100); Mean Platelet Volume 9.6 fl (7.4-10.4); Monocytes Absolute Auto 0.7 K/mm3 (0.1-0.6); Monocytes Percent Auto 5.9 % (2.6-8.5); Neutrophils Absolute Auto 7.2 K/mm3 (1.3-6.7); Neutrophils Percent Auto 63.1 % (45.5-73.1); Platelet Count Result 274 k/mm3 (150-375); Red Blood Count 2.86 M/mm3 (4.6-6.20); Red Cell Distribution Width 11.9 % (11.5-14.5); White Blood Count 11.4 K/mm3 (4.5-10.0)
[2023-07-28 06:30] LABS: Alanine Aminotransferase 26 U/L (6-50); Alkaline Phosphatase 52 U/L (38-126); Anion Gap 8 mmol/L (8-16); Aspartate Amino Transferase 28 U/L (17-59); Bilirubin,Total 0.3 mg/dL (0.2-1.3); Blood Urea Nitrogen 20 mg/dL (9-20); Calcium 8.1 mg/dL (8.4-10.2); Carbon Dioxide 27 mmol/L (22-30); Chloride 105 mmol/L (98-107); Estimated CRCL calculation 120 ml/min; Estimated Glomerular Filt Rate > 60; Glucose 95 mg/dL (65-110); Magnesium 1.5 mg/dL (1.6-2.3); Phosphorus 2.9 mg/dL (2.5-4.5); Potassium 4.2 mmol/L (3.4-5.0); Sodium 140 mmol/L (137-145)
[2023-07-28] MEDS: FOLIC ACID 1 MG TABLET PO (09:05)
[2023-07-28] MEDS: predniSONE 20 MG TABLET 40 MG PO (09:05)
[2023-07-28] MEDS: THIAMINE HCL 100 MG TABLET PO (09:06)
[2023-07-28] MEDS: CLOTRIMAZOLE 10 MG TROC MUCOUS MEM ×2 (09:06→12:19)
[2023-07-28] MEDS: LOSARTAN POTASSIUM 100 MG TABLET PO (09:06)
[2023-07-28] MEDS: MAGNESIUM OXIDE 400 MG TABLET 800 MG PO ×2 (09:06→12:19)
[2023-07-28] MEDS: METOPROLOL SUCCINATE EXT REL 50 MG TABCR PO (09:06)
[2023-07-28] MEDS: chlordiazePOXIDE (*CRX) 25 MG CAPSULE PO (09:06)
[2023-07-28] MEDS: CALCIUM CARBONATE (OSCAL) 500 MG TABLET 1000 MG PO ×2 (09:06→12:19)
[2023-07-28] MEDS: MAGNESIUM SULF 2 GM/WATER 50ML 2 GM/50 ML BAG IVPB (09:07)
[2023-07-28] MEDS: PANTOPRAZOLE SODIUM IV 40 MG VIAL IV PUSH (09:07)
[2023-07-28 11:32] LABS: Ionized Calcium 4.1 mg/dL (4.7-5.5)
--- NOTE | 2023-07-28 13:53 | P.PNNP_ITS ---
Progress Note: A&P Assessment and Plan (1) Hypocalcemia: Code(s): E83.51 - Hypocalcemia Status: Acute Assessment and Plan: * symptomatic on presentation * testing to date noted - PTH 101 and vitamin D 53.5 * 24hr urine calcium pending * possibly due to low magnesium * received IV calcium and now on po calcium supplementation * follow trend of repeat calcium levels (2) Hypomagnesemia: Code(s): E83.42 - Hypomagnesemia Status: Acute Assessment and Plan: * etiology? * poor oral intake? versus renal wasting syndrome? (although no associated hypokalemia) versus chronic alcohol use? * on pantoprazole which can do this -- consider switching to Pepcid? * replace IV and oral as tolerated; on scheduled oral replacement as well * 24hr urine magnesium pending (3) EDGAR (acute kidney injury): Code(s): N17.9 - Acute kidney failure, unspecified Status: Acute Assessment and Plan: * resolved * presumably due to volume depletion * creatinine back to normal (4) Essential (primary) hypertension: Code(s): I10 - Essential (primary) hypertension Status: Acute Assessment and Plan: * reasonable control * on losartan and metoprolol * follow trend of hemodynamics (5) Alcohol abuse: Code(s): F10.10 - Alcohol abuse, uncomplicated Status: Acute Assessment and Plan: * continue [facility] protocol * monitor for withdrawal Will continue to follow. Subjective Date/time seen: 07/28/23 13:53 Interval history: Follow-up for acute kidney injury/acute renal failure, hypocalcemia, and hypomagnesemia. Hypocalcemia and hypomagnesemia seems to be trending better with oral supplementation from trend of labs; right knee pain better as well; no acute issues/events overnight or earlier this AM. Exam Narrative: General: WD/WN male in NAD Heart: normal S1 and S2; no rub Lungs: clear to auscultation Abdomen: soft, nontender, nondistended, positive bowel sounds Extremities: no cyanosis or clubbing; no edema Skin: warm and intact Objective Data Vital Signs Vital Signs: Vital Signs Temp Pulse Resp BP Pulse Ox 07/28/23 12:00 84 07/28/23 14:00 98.0 F 97 18 136/89 98 07/28/23 08:00 81 01/30/24 09:06 89 07/28/23 05:45 97.8 F 88 18 143/83 H 100 07/28/23 04:00 74 07/28/23 00:00 77 07/27/23 20:00 73 07/27/23 19:52 98.5 F 77 16 131/77 100 Intake/Output Intake/Output: Intake & Output 07/25/23 07/26/23 07/27/23 07/28/23 23:59 23:59 23:59 23:59 Intake Total 2736 2276 2170 1030 Output Total 1450 1050 2000 Balance 2736 826 1120 -970 Meds/Results Medications: Active Medications Generic Name Dose Route Start Last Admin Trade Name Freq PRN Reason Stop Dose Admin Acetaminophen 650 mg 07/23/23 13:28 07/25/23 08:24 Acetaminophen 325 Mg Tablet PO 650 mg Q4H PRN Administration Mild Pain (1-3) or Fever Calcium Carbonate 1,000 mg 07/26/23 12:30 07/28/23 12:19 Calcium Carbonate (Oscal) 500 Mg Tablet PO 1,000 mg TIDWM [facility] Administration Chlordiazepox
--- NOTE | 2023-07-28 13:53 | PM.PNNEP ---
Progress Note: A&P Assessment and Plan (1) Hypocalcemia: Code(s): E83.51 - Hypocalcemia Status: Acute Assessment and Plan: symptomatic on presentation testing to date noted - PTH 101 and vitamin D 53.5 24hr urine calcium pending possibly due to low magnesium received IV calcium and now on po calcium supplementation follow trend of repeat calcium levels (2) Hypomagnesemia: Code(s): E83.42 - Hypomagnesemia Status: Acute Assessment and Plan: etiology? poor oral intake? versus renal wasting syndrome? (although no associated hypokalemia) versus chronic alcohol use? on pantoprazole which can do this -- consider switching to Pepcid? replace IV and oral as tolerated; on scheduled oral replacement as well 24hr urine magnesium pending (3) EDGAR (acute kidney injury): Code(s): N17.9 - Acute kidney failure, unspecified Status: Acute Assessment and Plan: resolved presumably due to volume depletion creatinine back to normal (4) Essential (primary) hypertension: Code(s): I10 - Essential (primary) hypertension Status: Acute Assessment and Plan: reasonable control on losartan and metoprolol follow trend of hemodynamics (5) Alcohol abuse: Code(s): F10.10 - Alcohol abuse, uncomplicated Status: Acute Assessment and Plan: continue [facility] protocol monitor for withdrawal Will continue to follow. Subjective Date/time seen: 07/28/23 13:53 Interval history: Follow-up for acute kidney injury/acute renal failure, hypocalcemia, and hypomagnesemia. Hypocalcemia and hypomagnesemia seems to be trending better with oral supplementation from trend of labs; right knee pain better as well; no acute issues/events overnight or earlier this AM. Exam Narrative: General: WD/WN male in NAD Heart: normal S1 and S2; no rub Lungs: clear to auscultation Abdomen: soft, nontender, nondistended, positive bowel sounds Extremities: no cyanosis or clubbing; no edema Skin: warm and intact Objective Data Vital Signs Vital Signs: Vital Signs Temp Pulse Resp BP Pulse Ox 07/28/23 12:00 84 07/28/23 14:00 98.0 F 97 18 136/89 98 07/28/23 08:00 81 07/28/23 09:06 89 07/28/23 05:45 97.8 F 88 18 143/83 H 100 07/28/23 04:00 74 07/28/23 00:00 77 07/27/23 20:00 73 07/27/23 19:52 98.5 F 77 16 131/77 100 Intake/Output Intake/Output: Intake & Output 07/25/23 07/26/23 07/27/23 07/28/23 23:59 23:59 23:59 23:59 Intake Total 2736 2276 2170 1030 Output Total 1450 1050 2000 Balance 2736 826 1120 970 Meds/Results Medications: Active Medications Generic Name Dose Route Start Last Admin Trade Name Freq PRN Reason Stop Dose Admin Acetaminophen 650 mg 07/23/23 13:28 07/25/23 08:24 Acetaminophen 325 Mg Tablet PO 650 mg Q4H PRN Administration Mild Pain (1-3) or Fever Calcium Carbonate 1,000 mg 07/26/23 12:30 07/28/23 12:19 Calcium Carbonate (Oscal) 500 Mg Tablet PO 1,000 mg TIDWM [facility] Administration Chlordiazepoxide HCl 25 mg 07/27/23 21:00 07/28/23 09:06 Chlordiazepoxide (*Crx) 25 Mg Capsule PO 25 mg Q12H [facility] Administration Clotrimazole 10 mg 07/23/23 17:30 07/28/23 12:19 Clotrimazole 10 Mg Troc MUCOUS MEM 10 mg TID [facility] Administration Ergocalciferol 50,000 units 07/26/23 09:00 07/26/23 09:37 Ergocalciferol 50,000 Units Capsule PO 50,000 units Belle@0900 [facility] Administration Folic Acid 1 mg 07/24/23 09:00 07/28/23 09:05 Folic Acid 1 Mg Tablet PO 1 mg DAILY [facility] Administration Hydrochlorothiazide 25 mg 07/24/23 09:00 Hydrochlorothiazide 25 Mg Tablet PO DAILY [facility] Losartan Potassium 100 mg 07/24/23 09:00 07/28/23 09:06 Losartan Potassium 100 Mg Tablet PO 100 mg DAILY [facility] Administration Magnesium Oxide 800 mg 07/28/23 09:00 07/28/23 12:19 Magnesium Oxide 400 Mg Table
[2023-07-28 14:18] LABS: Albumin 4.2 g/dL (3.8-4.8); Alpha 1 Globulin 0.3 g/dL (0.2-0.3); Beta 1 Globulin 0.5 g/dL (0.4-0.6); Gamma Globulin 0.7 g/dL (0.8-1.7); Protein, Total 7.1 g/dL (6.1-8.1)
--- NOTE | 2023-07-28 15:58 | PM.DS ---
DS: Admitting Diagnosis Discharge Date 07/28/2023 Admitting Diagnosis Abnormal labs DS: Discharge Diagnosis Discharge Diagnosis (1) Hypocalcemic tetany: Code(s): E83.51 - Hypocalcemia Status: Acute (2) Hypocalcemia: Code(s): E83.51 - Hypocalcemia Status: Acute (3) EDGAR (acute kidney injury): Code(s): N17.9 - Acute kidney failure, unspecified Status: Acute (4) Hypomagnesemia with secondary hypocalcemia: Code(s): E83.42 - Hypomagnesemia; E83.51 - Hypocalcemia Status: Acute (5) Alcohol abuse: Code(s): F10.10 - Alcohol abuse, uncomplicated Status: Acute (6) Elevated lipase: Code(s): R74.8 - Abnormal levels of other serum enzymes Status: Acute (7) Anemia: Qualifiers: Anemia type: unspecified type Qualified Code(s): D64.9 - Anemia, unspecified Code(s): D64.9 - Anemia, unspecified Status: Acute (8) Essential (primary) hypertension: Code(s): I10 - Essential (primary) hypertension Status: Acute DS: Summary Hospital Course Hospital Course: This is a 43-year-old male presents to the ED as directed by his primary care because of some numbness and tingling in his bilateral lower extremity patient.? For which he had laboratory evaluation done which showed hypomagnesemia hypocalcemia of 5.9.? Lipase is mildly elevated 355 EKG showed normal sinus rhythm a care orders.? Was treated with calcium gluconate and magnesium in the ER and admitted for further treatment.? He was also noted to have mild EDGAR with creatinine 2.4 with mild anemia 10.9.? He had history of chronic alcohol abuse.? Suspect did nutritional deficiency likely related to chronic alcohol abuse. Hypertension home medication hydrochlorothiazide 25 mg daily losartan 100 mg daily and metoprolol 25 mg daily hydrochlorothiazide was discontinued due to different electrolyte abnormalities. Electrolyte imbalance: replace lytes as tolerated need close monitoring as an outpatient basis magnesium phosphorus and calcium level was improved with supplementation via IV will need continue oral supplementation and follow-up labs in 1 week Chronic alcohol abuse on [facility] protocol with Librium will continue taper Librium in off no signs of alcohol withdrawal to hospital stay Elevated lipase:? 355.? CT abdomen with normal pancreas.? Diffuse hepatic steatosis.? Advanced diet as tolerated. EDGAR creatinine 2.4 which has improved Right knee pain tender suprapatellar area likely bursitis/ligamentous injury.? Ice pack ibuprofen prn tramadol p.r.n. ibuprofen help.? With renal failure avoid NSAIDs.? Will give prednisone 40 mg daily.? Improving will do 5 days course DVT prophylaxis SCDs/Lovenox Code status full code Time Spent with Patient Time attestation: Total time spent providing and/or coordinating discharge services: 35 minutes Exam Narrative: GENERAL: Well-appearing, well-nourished and in no acute distress. HEENT: Head normocephalic, atraumatic. Mild conjunctival pallor. NECK: Supple, full, normal range of motion, CARDIAC: Regular rate and rhythm RESPIRATORY: Speaking in full sentences, no respiratory distress ABDOMEN: Soft, obese, EXTREMITIES: Normal range of motion. Right knee with tender suprapatellar area NEUROLOGICAL: Normal speech. Alert. SKIN: Warm, dry, normal color. DS: Data Data Completed and Pending Labs on day of discharge: Labs from last 24 hours 07/28/23 07/25/23 07/23/23 05:25 13:56 17:55 WBC 11.4 H RBC 2.86 L Hgb 9.6 L Hct 30.1 L MCV 105.2 H MCH 33.6 MCHC 31.9 L RDW 11.9 Plt Count 274 MPV 9.6 Immature Gran % (Auto) 1.1 H Neut % (Auto) 63.1 Lymph % (Auto) 28.6 [place] % (Auto) 5.9 Eos % (Auto) 0.9 Baso % (Auto) 0.4 Lymph # (Auto) 3.25 H [place] # (Auto) 0.7 H Eos # (Auto) 0.1 Baso # (Auto) 0.1 Abs Immat Gran (auto) 0.13 H Absolute Neuts (auto) 7.2 H Absolute Nucleated RBC 0.0 Nucleated
[2023-07-30 06:36] LABS: Creatinine, Random Urine 129 mg/dL (20-320); Total Protein/Creatinine Ratio 62 mg/g creat (25-148)
[2023-07-31 10:50] LABS: Magnesium, 24-Hour Urine 98
[2023-08-05 13:45] LABS: Total Volume 3500 mL; Urine Calcium 0.5 mg/dL
== END 2023-07-28 16:58 | disposition home or self-care (01) | DRG 641 ==
LOC: ANHED 13:41 → ANH3MEDSUR 14:11 → ANH3MED 15:34
PROVIDERS: Internal Medicine Nephrology; Student in an Organized Health Care Education/Training Program; Admitting Provider General Practice; Emergency Provider Student in an Organized Health Care Education/Training Program; PCP Family Medicine; Visit Provider Internal Medicine
DX: E83.42 Hypomagnesemia (principal); N17.9 Acute kidney failure, unspecified; E83.51 Hypocalcemia; E55.9 Vitamin D deficiency, unspecified; I10 Essential (primary) hypertension; D64.9 Anemia, unspecified; K21.9 Gastro-esophageal reflux disease without esophagitis; R19.7 Diarrhea, unspecified; R74.8 Abnormal levels of other serum enzymes; M25.561 Pain in right knee; F10.10 Alcohol abuse, uncomplicated; Z87.891 Personal history of nicotine dependence
CPT/HCPCS: 36415; 73560; 74176; 76775; 80048; 80053; 80069; 80307; 81050; 82306; 82330; 82340; 82533; 82550; 82570; 82607; 82728; 82746; 82948; 83540; 83550; 83690; 83735; 83970; 84100; 84133; 84155; 84156; 84165; 84166; 84300; 84425; 84443; 85025; 86160; 86225; 86703; 93005; 96365; 96375; 99285; A9270; C9113; G0378; G0432; J0612; J0613; J3411; J3475; J7030; J7512

== ENCOUNTER 2023-08-07 17:20 | Outpatient (CLI) | payer OTHER, SELFPAY ==
[2023-08-07 17:54] LABS: Basophils Percent Auto 0.4 % (0.2-1.2); Eosinophils Absolute Auto 0.1 K/mm3 (0-0.3); Eosinophils Percent Auto 1.1 % (0-4.4); Hematocrit 32.3 % (42.0-52.0); Hemoglobin 10.7 g/dL (14.0-18.0); Immature Granulocyte Absolute 0.08 K/mm3 (0.00-0.031); Immature Granulocyte Percent A 0.8 % (0-0.5); Lymphocytes Absolute Auto 2.57 K/mm3 (0.9-3.2); Mean Corpuscular HGB Conc 33.1 g/dl (32-36); Mean Corpuscular Hemoglobin 33.5 pg (26-34); Mean Corpuscular Volume 101.3 fl (80-100); Mean Platelet Volume 9.1 fl (7.4-10.4); Monocytes Absolute Auto 0.6 K/mm3 (0.1-0.6); Neutrophils Absolute Auto 6.9 K/mm3 (1.3-6.7); Neutrophils Percent Auto 66.7 % (45.5-73.1); Platelet Count Result 334 k/mm3 (150-375); Red Blood Count 3.19 M/mm3 (4.6-6.20); Red Cell Distribution Width 11.9 % (11.5-14.5); White Blood Count 10.3 K/mm3 (4.5-10.0)
[2023-08-07 18:05] LABS: Anion Gap 9 mmol/L (8-16); Blood Urea Nitrogen 22 mg/dL (9-20); Calcium 9.8 mg/dL (8.4-10.2); Carbon Dioxide 25 mmol/L (22-30); Chloride 101 mmol/L (98-107); Estimated Glomerular Filt Rate 51; Glucose 93 mg/dL (65-110); Magnesium 1.4 mg/dL (1.6-2.3); Potassium 4.1 mmol/L (3.4-5.0); Sodium 135 mmol/L (137-145)
== END 2023-08-07 17:21 | disposition home or self-care (01) ==
LOC: ANHLAB 17:21
PROVIDERS: PCP Family Medicine; Visit Provider Internal Medicine
DX: D64.9 Anemia, unspecified (principal); I10 Essential (primary) hypertension; E83.51 Hypocalcemia; E83.42 Hypomagnesemia
CPT/HCPCS: 36415; 80048; 83735; 85025

== ENCOUNTER 2023-08-17 16:14 | Outpatient (CLI) | payer OTHER, SELFPAY ==
[2023-08-17 17:12] LABS: Anion Gap 10 mmol/L (8-16); Blood Urea Nitrogen 19 mg/dL (9-20); Calcium 9.8 mg/dL (8.4-10.2); Carbon Dioxide 25 mmol/L (22-30); Chloride 101 mmol/L (98-107); Estimated Glomerular Filt Rate > 60; Glucose 108 mg/dL (65-110); Magnesium 1.6 mg/dL (1.6-2.3); Potassium 4.1 mmol/L (3.4-5.0); Sodium 136 mmol/L (137-145)
== END 2023-08-17 16:15 | disposition home or self-care (01) ==
LOC: ANHLAB 16:16
PROVIDERS: PCP Family Medicine; Visit Provider Family Medicine
DX: Z13.228 Encounter for screening for other metabolic disorders (principal); E83.42 Hypomagnesemia
CPT/HCPCS: 36415; 80048; 83735

== ENCOUNTER 2023-12-25 11:38 | Emergency (ER) | payer OTHER, SELFPAY ==
--- NOTE | 2023-12-25 11:48 | ED.BACK ---
HPI - Back Pain/Injury General Chief Complaint: Back Pain/Injury Stated Complaint: left side lower back pain,left leg pain Time Seen by Provider: 12/25/23 11:48 Source: patient Mode of arrival: ambulatory Limitations: no limitations History of Present Illness HPI Narrative: 43 yo M presents with c/o L sided low back pain for 4 days with radiation of pain intermittently down L leg. Denies injury. 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 pain started while standing hunched over for long period of time. Ambulatory with steady gait. Taking naproxen with no relief of pain. Has appointment with his primary care physician on Thursday. Reports today while getting up out of a car back began to spasm and had shooting pains down left leg. No loss of bowel or bladder. All systems reviewed and negative except as noted above. Related Data Allergies Allergy/AdvReac Type Severity Reaction Status Date / Time No Known Allergies Allergy Verified 12/25/23 12:04 Review of Systems Review of Systems: CONSTITUTIONAL: Denies fever, chills, or sweats. EYES: Denies visual changes, redness, or discharge. ENT: Denies rhinorrhea, congestion, sore throat, or otalgia. CARDIOVASCULAR: Denies chest pain, palpitations, or edema. RESPIRATORY: Denies cough or dyspnea. GASTROINTESTINAL: Denies abdominal pain, nausea, vomiting, or diarrhea. GENITOURINARY: Denies dysuria or hematuria. SKIN: Denies rash or itching. MUSCULOSKELETAL: Reports left-sided low back pain with radiation to left lower extremity. Denies joint pain, or myalgia. NEUROLOGIC: Denies headache, numbness, or weakness. PSYCHIATRIC: Denies anxiety or depression. All other systems reviewed are negative, except as documented in HPI. [facility] Past Medical History Medical History Alcohol abuse COVID 06/22/23 Essential (primary) hypertension GERD (gastroesophageal reflux disease) Hyperlipidemia Positive ANDREE (antinuclear antibody) Vitamin D deficiency, unspecified Surgical History Surgical History H/O umbilical hernia repair Umbilical hernia repair with 6.6cm Paritex underlay mesh 02/08/2020 History of decompression of ulnar nerve (~02/13/23) Transposition - Rt History of removal of skin mole [place] teeth extracted Family History Family History Mother Arthritis History of lobectomy of lung Lung cancer Grandparent , Age 81 Alzheimer disease Lung cancer Other Colon cancer Other Lung cancer Grandparent Dementia Social History Social History Smoking packs per day: 0.75 Smoking cigarettes per day: 15.0 Years smoked: 10 Smoking pack-years: 7.50 Smoking status: Former smoker Additional smoking assessment comments: 16 YEARS AGO Alcohol intake: current Drinks per week: 56 Alcohol use details: drinks 4 beers a day and shots of vodka Substance use: never Last use: alcohol last use 07/22/23 Do You Feel Safe in your Home?: Yes Lack of Transportation: No Lack of Food: Never True Current Housing: I Have Housing Concerned About Future Housing: No Difficulty Paying Gas/Electric Bills: No Difficulty Paying for Meds: No Currently Unemployed: No Education: Trade/Vocational Certificate Difficulty w/ Childcare or Family Care: No Living arrangements: with family Occupation/Education: occupation Additional occupation/education comments: [employer] Gender identity (if verbalized by the patient): Male Spiritual care concerns: No Comments At time of signature, agree with nursing past medical, surgical, social and family history. There is no relevant family history pertinent to the presenting complaint. Exam Narrative: GENERAL: This is a well-nourished, well-developed
[2023-12-25 11:56] VITALS: BP 124/76; PULSE 81; RESP 16; TEMP 36.8; O2SAT 99
[2023-12-25] MEDS: KETOROLAC (*BKC) 60 MG/2 ML VIAL IM (12:22)
== END 2023-12-25 12:31 | disposition home or self-care (01) ==
PROVIDERS: Emergency Provider Nurse Practitioner Family; PCP Family Medicine
DX: M54.42 Lumbago with sciatica, left side (principal); Z87.891 Personal history of nicotine dependence; I10 Essential (primary) hypertension; K21.9 Gastro-esophageal reflux disease without esophagitis; E78.5 Hyperlipidemia, unspecified; Z86.16 Personal history of COVID-19
CPT/HCPCS: 96372; 99213; G0463; J1885

== ENCOUNTER 2024-08-16 09:07 | Emergency (ER) | payer OTHER, SELFPAY ==
[2024-08-16 09:13] VITALS: BP 145/98; PULSE 108; RESP 16; TEMP 37.6; O2SAT 99
--- NOTE | 2024-08-16 09:23 | ED_ITS ---
HPI - URI/Sore Throat General Chief Complaint: Upper Respiratory Infection Stated Complaint: Sinus Time Seen by Provider: 08/16/24 09:23 Source: patient, RN notes reviewed and old records reviewed Mode of arrival: ambulatory Limitations: no limitations History of Present Illness HPI Narrative: Patient presents with complaints of flu-like symptoms that began yesterday. He has been taking aspirin for his symptoms with minimal relief. He is not in any distress, voices no other concerns or complaints today Related Data Allergies Allergy/AdvReac Type Severity Reaction Status Date / Time No Known Allergies Allergy Verified 08/16/24 09:53 Review of Systems Review of Systems: All systems reviewed & are unremarkable except as noted in HPI and below Constitutional: Constitutional: Reports no additional constitutional complaints, Reports body ache(s), Reports chills, Reports fever(s), Reports headache(s) and Reports lethargy ENT: Reports system reviewed and no additional complaints, except as documented, Reports nasal congestion and Reports nasal discharge Cardiovascular: Cardiovascular: Reports no additional cardiovascular comp laints Respiratory: Respiratory: Reports no additional respiratory complaints Gastrointestinal: Gastrointestinal: Reports no additional gastrointestinal complaints PMFSH Past Medical History Medical History Alcohol abuse COVID 06/22/23 Vitamin D deficiency, unspecified Positive ANDREE (antinuclear antibody) Hyperlipidemia Essential (primary) hypertension GERD (gastroesophageal reflux disease) Surgical History Surgical History History of decompression of ulnar nerve (~02/13/23) Transposition - Rt H/O umbilical hernia repair Umbilical hernia repair with 6.6cm Paritex underlay mesh 02/08/2020 History of removal of skin mole [place] teeth extracted Family History Family History Mother Arthritis History of lobectomy of lung Lung cancer Grandparent , Age 81 Alzheimer disease Lung cancer Other Colon cancer Other Lung cancer Grandparent Dementia Social History Social History Smoking packs per day: 0.75 Smoking cigarettes per day: 15.0 Years smoked: 10 Smoking pack-years: 7.50 Smoking status: Former smoker Additional smoking assessment comments: 16 YEARS AGO Alcohol intake: current Drinks per week: 56 Alcohol use details: drinks 4 beers a day and shots of vodka Substance use: never Last use: alcohol last use 07/22/23 Do You Feel Safe in your Home?: Yes Lack of Transportation: No Lack of Food: Never True Current Housing: I Have Housing Concerned About Future Housing: No Difficulty Paying Gas/Electric Bills: No Difficulty Paying for Meds: No Currently Unemployed: No Education: Trade/Vocational Certificate Difficulty w/ Childcare or Family Care: No Living arrangements: with family Occupation/Education: occupation Additional occupation/education comments: [employer] Gender identity (if verbalized by the patient): Male Spiritual care concerns: No Comments At the time of my signature, I reviewed and agree with the nursing past medical, surgical, social, and family history. There is no relevant family history pertinent to the patient complaint. Exam Const: General: cooperative, no acute distress, alert and awake Orientation/consciousness: oriented to person, oriented to place and oriented to time HENMT: Head: normal to inspection Resp: Effort & Inspection: normal respiratory effort and able to speak in complete sentences Auscultation: clear to auscultation bilaterally, no crackles, no rales, no rhonchi and no wheezes Cardio: Palpation: normal PMI Rate: regular rate Rhythm: regular rhythm Heart sounds: S1 normal heart sound present and S2 normal heart sound present Neuro: General: oriented to person, oriented to place and oriented to time Cranial nerves: Yes CN's II-XII intact bilaterally Psych: Appearance: grossly normal Thought process: Normal thought process present Insight: Good insight present (Psych) Judgement: Good judgement present (Psych) Course Course Level of Care: Express Care Visit Vital Signs Vital signs: Vital Signs Temperature 99.6 F 08/16/24 09:13 Pulse Rate 108 H 08/16/24 09:13 Respiratory Rate 16 08/16/24 09:13 Blood Pressure 145/98 H 08/16/24 09:13 Pulse Oximetry 99 08/16/24 09:13 Oxygen Delivery Room Air 08/16/24 09:13 Temperature 99.6 F 08/16/24 09:13 Pulse Rate 108 H 08/16/24 09:13 Respiratory Rate 16 08/16/24 09:13 Blood Pressure 145/98 H 08/16/24 09:13 Pulse Oximetry 99 08/16/24 09:13 Oxygen Delivery Room Air 08/16/24 09:13 Reviewed MDM - URI/Sore Throat MDM Narrative Medical decision making narrative: Negative COVID, positive influenza. Reassuring physical exam. Tamiflu discussed, patient would like to take this. Prescription sent. He is nontoxic appearing, stable for discharge home. Discharge instructions reviewed with patient, as well as provided in writing per nursing staff. The instructions also include specific and strict return/GO TO THE ER as well as f/u information. All questions have been answered, and the patient deny any further questions with discharge and discharge plan. Some parts of this dictation were generated by voice recognition software and may contain typographical and/or grammatical inaccuracies. Differential Diagnosis Differential diagnosis: Likely upper respiratory infection, otitis media, viral infection, influenza and pharyngitis Medical Records Attestation: I reviewed the patient's medical records. Lab Data Attestation: I reviewed the patient's lab results. Discharge Plan Discharge Clinical Impression: Influenza Patient Disposition: Home, Self-Care Condition: Stable Instructions: Antibiotic Form, Influenza (ED) Additional Instructions: Take medications as prescribed. Follow-up with primary care provider. Emergency department for new or worsening symptoms Patient Language: Lithuanian Prescriptions: New oseltamivir [Tamiflu] 75 mg capsule 75 mg PO Q12H 5 Days Qty: 10 0RF No Action methocarbamol 750 mg tablet 750 mg PO Q8H PRN (Reason: muscle pain/spasm) Qty: 30 0RF ibuprofen 600 mg tablet 600 mg PO Q6H PRN (Reason: pain) Qty: 30 0RF atorvastatin 20 mg tablet 20 mg PO DAILY Qty: 90 3RF naproxen 500 mg tablet 500 mg PO BID Qty: 28 0RF calcium carbonate [Oyster Shell Calcium 500] 500 mg calcium (1,250 mg) Tablet 1,000 mg PO TIDWM Qty: 90 0RF carvedilol 12.5 mg tablet See Rx Instructions .ROUTE .COMPLEX Qty: 60 5RF Dose Instruction: TAKE 1 TABLET BY MOUTH EVERY 12 HOURS WITH FOOD Rx Instructions: TAKE 1 TABLET BY MOUTH EVERY 12 HOURS WITH FOOD olmesartan 40 mg tablet 40 mg PO DAILY Qty: 90 2RF Follow-up/Referrals: Jak,Ricky Vázquez, [Primary Care Provider] - 2 Weeks Stand Alone Forms: Work/School Release IP Time of Disposition: 10:08
[2024-08-16 10:07] LABS: EDCOVIDSCREEN Negative (Negative)
[2024-08-16 10:09] LABS: EDINFLUASCREEN Positive (Negative); EDINFLUBSCREEN Negative (Negative)
== END 2024-08-16 10:12 | disposition home or self-care (01) ==
PROVIDERS: Emergency Provider Nurse Practitioner Family; PCP Family Medicine
DX: J10.1 Influenza due to other identified influenza virus with other respiratory manifestations (principal); Z20.822 Contact with and (suspected) exposure to COVID-19; I10 Essential (primary) hypertension; K21.9 Gastro-esophageal reflux disease without esophagitis; E78.5 Hyperlipidemia, unspecified; Z87.891 Personal history of nicotine dependence; Z86.16 Personal history of COVID-19
CPT/HCPCS: 87426; 87804; 99213; G0463

== ENCOUNTER 2024-09-21 12:35 | Emergency (ER) | payer OTHER, SELFPAY ==
[2024-09-21 12:45] VITALS: BP 134/87; PULSE 88; RESP 16; TEMP 36.5; O2SAT 100
--- NOTE | 2024-09-21 12:45 | ED.NAVMDI ---
HPI - Nausea/Vomiting/Diarrhea General Chief complaint: Nausea/Vomiting/Diarrhea Stated complaint: diarrhea,nauseated Time Seen by Provider: 09/21/24 12:46 Source: patient Mode of arrival: ambulatory Limitations: no limitations History of Present Illness HPI Narrative: Ernst is a 44-year-old male patient presenting to the clinic today with complaints nausea and diarrhea for the past 4 days. Reports since 1:00 a.m. this morning he has had 7 diarrhea stools. He states the last 3 diarrhea stools were very small amount. He has taken some [id number] Imodium as well as a anti diarrheal medication from a gas station. States that the Imodium does help when he takes it but it only last for approximately 4 hours. No fevers or chills. States he did have some cramping in the left leg however that has resolved. He has been drinking Pedialyte. No blood in his stool. Denies any abdominal pain currently but at times does have cramping. Has not changed his diet. No one else at home is sick. Related Data Allergies Allergy/AdvReac Type Severity Reaction Status Date / Time No Known Allergies Allergy Verified 09/21/24 12:42 Review of Systems Review of Systems: Pertinent positives per HPI. Patient denies any fever, chills, rash, headache, visual changes, dizziness, cough, shortness of breath, chest pain, palpitations, vomiting, constipation, or any urinary issues. [facility] Past Medical History Medical History Alcohol abuse COVID 06/22/23 Vitamin D deficiency, unspecified Positive ANDREE (antinuclear antibody) Hyperlipidemia Essential (primary) hypertension GERD (gastroesophageal reflux disease) Surgical History Surgical History History of decompression of ulnar nerve (~02/13/23) Transposition - Rt H/O umbilical hernia repair Umbilical hernia repair with 6.6cm Paritex underlay mesh 02/08/2020 History of removal of skin mole [place] teeth extracted Family History Family History Mother Arthritis History of lobectomy of lung Lung cancer Grandparent , Age 81 Alzheimer disease Lung cancer Other Colon cancer Other Lung cancer Grandparent Dementia Social History Social History Smoking packs per day: 0.75 Smoking cigarettes per day: 15.0 Years smoked: 10 Smoking pack-years: 7.50 Smoking status: Former smoker Additional smoking assessment comments: 16 YEARS AGO Alcohol intake: current Drinks per week: 56 Alcohol use details: drinks 4 beers a day and shots of vodka Substance use: never Last use: alcohol last use 07/22/23 Do You Feel Safe in your Home?: Yes Lack of Transportation: No Lack of Food: Never True Current Housing: I Have Housing Concerned About Future Housing: No Difficulty Paying Gas/Electric Bills: No Difficulty Paying for Meds: No Currently Unemployed: No Education: Trade/Vocational Certificate Difficulty w/ Childcare or Family Care: No Living arrangements: with family Occupation/Education: occupation Additional occupation/education comments: [employer] Gender identity (if verbalized by the patient): Male Spiritual care concerns: No Comments At the time of my signature, I reviewed and agree with the nursing past medical, surgical, social, and family history. There is no relevant family history pertinent to the patient complaint. Exam Narrative: General: Well-developed, well nourished, in no apparent distress Head: Normocephalic, atraumatic Eyes: Pupils equally round and reactive to light bilaterally, EOM intact, sclera and conjunctive clear, no discharge, lids normal Ears: TMs intact and clear, ear canals clear, no drainage, grossly hearing normal. Nose: Nares patent, no discharge, no inflammation, no sinus tenderness. Mouth: Oral pharynx without lesions or masses, good dentition, MMM. Neck: Supple, trachea midline, no enlargement of anterior or posterior cervical nodes, no thyroid masses or goiter palpable. Cardio: Regular rate and rhythm, s1 and s2 normal, no murmur appreciated. Resp: Clear to auscultation bilaterally, no rhonchi, rales, wheezing or rubs Course Course Emergency Course: Portions of this record may have been created with voice recognition software. Level of Care: Express Care Visit Vital Signs Vital signs: Vital Signs Temperature 36.5 C 09/21/24 12:45 Pulse Rate 88 09/21/24 12:45 Respiratory Rate 16 09/21/24 12:45 Blood Pressure 134/87 09/21/24 12:45 Pulse Oximetry 100 09/21/24 12:45 Oxygen Delivery Room Air 09/21/24 12:45 Temperature 36.5 C 09/21/24 12:45 Pulse Rate 88 09/21/24 12:45 Respiratory Rate 16 09/21/24 12:45 Blood Pressure 134/87 09/21/24 12:45 Pulse Oximetry 100 09/21/24 12:45 Oxygen Delivery Room Air 09/21/24 12:45 Vital signs reviewed MDM - Nausea/Vomiting/Diarrhea MDM Narrative Medical decision making narrative: At the time of visit patient is resting comfortably on the exam table. Patient appears to be nontoxic. Plan: I suspect patient has gastroenteritis. Vital signs are stable. Patient denies any abdominal pain currently. No fever or blood in stool. Prescription for Zofran and Levsin was sent to the pharmacy. Supportive measures were discussed with the patient and they voiced understanding discharge instructions and agrees to treatment plan. Return precautions reviewed Differential Diagnosis Differential diagnosis: Likely traveler's diarrhea, food poisoning, gastroenteritis, clostridium difficile infection, drug-induced nausea and vomiting, dehydration and other (COVID, influenza) Discharge Plan Discharge Clinical Impression: Gastroenteritis Patient Disposition: Home, Self-Care Condition: Stable Instructions: Antibiotic Form, Gastroenteritis (ED) Additional Instructions: Take prescription medications only as prescribed-Zofran and Levsin Increase fluids and stay well hydrated Tylenol/motrin for pain/fever BRAT diet for diarrhea Stick with a bland diet-no fatty, greasy, or spicy foods Clear liquids x 24 hours then advance as tolerated for nausea/vomiting Go to the ED if you develop a worsening in your condition- high fever not controlled by Tylenol or Motrin, dehydration, weakness, lethargy, shortness of breath, or chest pain. Follow up with your PCP in 3-5 days if symptoms persist. Patient Language: Kinyarwanda Prescriptions: New ondansetron 4 mg tablet,disintegrating 4 mg PO Q6H PRN (Reason: nausea and vomiting) 3 Days Qty: 12 0RF hyoscyamine sulfate [Levsin] 0.125 mg tablet 0.125 mg PO QID PRN (Reason: dyspepsia) 3 Days Qty: 12 0RF No Action methocarbamol 750 mg tablet 750 mg PO Q8H PRN (Reason: muscle pain/spasm) Qty: 30 0RF ibuprofen 600 mg tablet 600 mg PO Q6H PRN (Reason: pain) Qty: 30 0RF atorvastatin 20 mg tablet 20 mg PO DAILY Qty: 90 3RF naproxen 500 mg tablet 500 mg PO BID Qty: 28 0RF calcium carbonate [Oyster Shell Calcium 500] 500 mg calcium (1,250 mg) Tablet 1,000 mg PO TIDWM Qty: 90 0RF olmesartan 40 mg tablet 40 mg PO DAILY Qty: 90 2RF carvedilol 12.5 mg tablet See Rx Instructions .ROUTE .COMPLEX Qty: 60 5RF Dose Instruction: TAKE 1 TABLET BY MOUTH EVERY 12 HOURS WITH FOOD Rx Instructions: TAKE 1 TABLET BY MOUTH EVERY 12 HOURS WITH FOOD Follow-up/Referrals: PHYSICIAN,KENNEL TECHNICIAN [Primary Care Provider] - Time of Disposition: 12:54 Quality NIHSS Nursing Documentation ED NIHSS nursing documentation: reviewed/agree
== END 2024-09-21 13:00 | disposition home or self-care (01) ==
PROVIDERS: Emergency Provider Nurse Practitioner Family
DX: K52.9 Noninfective gastroenteritis and colitis, unspecified (principal); Z87.891 Personal history of nicotine dependence; I10 Essential (primary) hypertension; K21.9 Gastro-esophageal reflux disease without esophagitis; E78.5 Hyperlipidemia, unspecified; Z86.16 Personal history of COVID-19
CPT/HCPCS: 99213; G0463

== ENCOUNTER 2024-09-30 11:19 | Emergency (ER) | payer OTHER, SELFPAY ==
--- NOTE | 2024-09-30 11:22 | ED_ITS ---
HPI - Skin/Abscess/Foreign Bdy General Chief complaint: Animal Bite Stated complaint: Cat Bite Time Seen by Provider: 09/30/24 11:20 Source: patient and RN notes reviewed Mode of arrival: ambulatory Limitations: dementia History of Present Illness HPI narrative: 44-year-old male presents with concern for cat bite to his right arm. He reports he was bit by a friend's cat yesterday. Reports the area which was red and tender when he woke up this morning. He denies drainage. He denies fever, body aches, chills, sweats. He denies any decreased strength, sensation, range of motion in the extremity, hand, digits. He washed it after the bite MD complaint: other (Redness) Related Data Home Medications ?Medication ?Instructions ?Recorded ?Confirmed ?Last Taken ?Type calcium carbonate (Tums) 200 mg PO BID PRN 10/03/24 10/03/24 Unknown History Allergies Allergy/AdvReac Type Severity Reaction Status Date / Time No Known Allergies Allergy Verified 10/03/24 13:05 Review of Systems Review of Systems: CONSTITUTIONAL: Denies malaise, chills, sweats, or fever. EYES: Denies redness, or discharge. ENT: Denies rhinorrhea, congestion, swollen lips, swollen tongue CARDIOVASCULAR: Denies chest pain, palpitations, or edema. RESPIRATORY: Denies cough or dyspnea. GASTROINTESTINAL: Denies abdominal pain, nausea, vomiting SKIN: Reports redness, swelling, tenderness surrounding puncture wounds to the right upper extremity. Denies purulent drainage, vesicles, bullae, numbness, pain beyond proportion MUSCULOSKELETAL: Denies joint pain or myalgia. NEUROLOGIC: Denies headache. All systems reviewed & are unremarkable except as noted in HPI and below PMFSH Past Medical History Medical History (Updated 10/03/24 @ 13:41 by Elda Quinones NP) Hyperlipidemia Alcohol abuse COVID 06/22/23 Vitamin D deficiency, unspecified Positive ANDREE (antinuclear antibody) Essential (primary) hypertension GERD (gastroesophageal reflux disease) Surgical History Surgical History History of decompression of ulnar nerve (~02/13/23) Transposition - Rt H/O umbilical hernia repair Umbilical hernia repair with 6.6cm Paritex underlay mesh 02/08/2020 History of removal of skin mole [place] teeth extracted Family History Family History (Reviewed 10/03/24 @ 13:09 by Shabana Black [facility] [address]) Mother Arthritis History of lobectomy of lung Lung cancer Grandparent , Age 81 Alzheimer disease Lung cancer Other Colon cancer Other Lung cancer Grandparent Dementia Social History Social History (Updated 10/03/24 @ 13:13 by Shabana Black [facility]) Smoking packs per day: 0.75 Smoking cigarettes per day: 15.0 Years smoked: 10 Smoking pack-years: 7.50 Smoking status: Former smoker Additional smoking assessment comments: 16 YEARS AGO Alcohol intake: current Drinks per week: 56 Alcohol use details: drinks 4 beers a day and shots of vodka Substance use: never Last use: alcohol last use 07/22/23 Do You Feel Safe in your Home?: Yes Lack of Transportation: No Lack of Food: Never True Current Housing: I Have Housing Concerned About Future Housing: No Difficulty Paying Gas/Electric Bills: No Difficulty Paying for Meds: No Currently Unemployed: No Education: Associate Degree Difficulty w/ Childcare or Family Care: No Living arrangements: with family Occupation/Education: occupation Additional occupation/education comments: [employer] Gender identity (if verbalized by the patient): Male Spiritual care concerns: No Comments At time of signature, agree with nursing past medical, surgical, social and family history. There is no relevant family history pertinent to the presenting complaint Exam Narrative: GENERAL: Well-appearing, well-nourished, and in no acute distress. HEAD: Normocephalic, atraumatic. EYES: PERRLA, conjunctivae clear ENT: Mucous membranes moist. NECK: Supple. No lymphadenopathy CHEST: Clear to auscultation. No respiratory distress. HEART: Regular rate and rhythm. SKIN: Warm, dry. Puncture wounds surrounded by a proximally 4 cm of Erythema, induration, tenderness, warmth with sharp margins noted to the right forearm. No vesicles, bullae, necrosis, ecchymosis, crepitus noted. NEURO: Alert and oriented x3. PSYCH: Normal mood and affect Course Course Emergency Course: Patient is aware of diagnosis, understands and agrees to treatment plan. Anticipatory guidance given. Patient agrees to follow-up as directed and is aware of reasons to seek care at the emergency department. Portions of this record may have been created with voice recognition software Level of Care: Express Care Visit Vital Signs Vital signs: Vital Signs Temperature 96.7 F L 09/30/24 11:26 Pulse Rate 88 09/30/24 11:26 Respiratory Rate 16 09/30/24 11:26 Blood Pressure 149/102 H 09/30/24 11:26 Pulse Oximetry 100 09/30/24 11:26 Temperature 96.7 F L 09/30/24 11:26 Pulse Rate 88 09/30/24 11:26 Respiratory Rate 16 09/30/24 11:26 Blood Pressure 149/102 H 09/30/24 11:26 Pulse Oximetry 100 09/30/24 11:26 Reviewed. MDM - Skin/Abscess/Foreign Bdy MDM Narrative Medical decision making narrative: I evaluated this in the [facility] care. History is obtained from patient who is an independent historian and physical exam was performed.? Available medical records were reviewed. ? Exam findings and relevant testing show no acute concerns or changes; patient is non-toxic appearing and is in no distress. No risk factors or findings concerning for epidural abscess, diskitis, vertebral osteomyelitis, cord compression, cauda equina, vertebral fracture or bone malignancy, AAA, or pyelonephritis. Patient instructed to consider further imaging and workup through their primary care physician as an outpatient if symptoms persist. Does not appear at this time to be erythema multiforme, bullous, SJS, TEN; no evidence at this time to suggest RMSF, NSTI, endocarditis or Lyme disease; patient looks well, nontoxic and is tolerating oral intake; no neurologic signs or symptoms; no headache, photophobia or neck pain; afebrile.? Patient does not have history of of penetrating trauma, laceration, blunt trauma, recent surgery, immunosuppression, malignancy, obesity, alcoholism, corticosteroid use.? Discussed the importance of follow-up, patient agrees; question, cellulitis versus necrotizing soft tissue infection versus abscess.?? Patient is appropriate for outpatient treatment and follow-up. Critical Care Time Critical Care Time Critical Care Time: No Discharge Plan Discharge Clinical Impression: Cat bite of right forearm with infection Patient Disposition: Home Condition: Stable Instructions: Antibiotic Form, Animal Bite (ED) Additional Instructions: Please follow up with your Primary Care Doctor within 48-72 hours - call for an appointment. Rest and elevate affected area; apply moist heat 3-4 times daily for 10-15 minutes. Take Motrin 600mg every 8 hours with food for pain. Please take Antibiotics as directed. If you experience any worsening redness, swelling, streaking (red lines), fever or chills please go to the ER Patient Language: Wallisian Prescriptions: New amoxicillin-pot clavulanate 875-125 mg tablet 1 tablet PO Q12H 10 Days Qty: 20 0RF No Action atorvastatin 20 mg tablet 20 mg PO DAILY Qty: 90 3RF calcium carbonate [Tums] 200 mg calcium (500 mg) tablet,chewable 200 mg PO BID PRN olmesartan 40 mg tablet 40 mg PO DAILY Qty: 90 2RF carvedilol 12.5 mg tablet See Rx Instructions .ROUTE .COMPLEX Qty: 60 5RF Dose Instruction: TAKE 1 TABLET BY MOUTH EVERY 12 HOURS WITH FOOD Rx Instructions: TAKE 1 TABLET BY MOUTH EVERY 12 HOURS WITH FOOD Follow-up/Referrals: PHYSICIAN,MEDICAL RECEPTIONIST ASSISTANT [Primary Care Provider] - Time of Disposition: 11:34
[2024-09-30 11:26] VITALS: BP 149/102; PULSE 88; RESP 16; TEMP 35.9; O2SAT 100
== END 2024-09-30 11:40 | disposition home or self-care (01) ==
PROVIDERS: Emergency Provider Nurse Practitioner
DX: S51.851A Open bite of right forearm, initial encounter (principal); L08.9 Local infection of the skin and subcutaneous tissue, unspecified; W55.01XA Bitten by cat, initial encounter; Z87.891 Personal history of nicotine dependence; I10 Essential (primary) hypertension; E78.5 Hyperlipidemia, unspecified; K21.9 Gastro-esophageal reflux disease without esophagitis; Z86.16 Personal history of COVID-19
CPT/HCPCS: 99213; G0463

== ENCOUNTER 2025-01-23 03:21 | Emergency (ER) | payer OTHER, SELFPAY ==
--- NOTE | ~2025-01-23 | CT_ITS ---
EXAMINATION: CT abdomen pelvis wo con DATE: 01/23/2025 03:52 INDICATION: Flank pain. Evaluate for stone. TECHNIQUE: Computed tomography (CT) of the abdomen and pelvis was performed without intravenous contr ast. The dose-length product was 1144.28 mGy-cm. Automated exposure control and iterative reconstruct ion technique were employed. COMPARISON: CT dated 07/23/2023. FINDINGS: Lung bases unremarkable. Heart size normal. No significant pleural or pericardial effusion. The liver, spleen, pancreas, adrenal glands are unremarkable. There is left perinephric stranding. T here is left hydronephrosis extending inferiorly in the ureter just proximal to the UVJ. There is an obstructing 3 mm stone. There is nonobstructing right nephrolithiasis. No significant right hydroneph rosis. There is a fat-containing umbilical hernia. There is moderate lumbar spondylosis. Nonobstructi ve bowel gas pattern. No significant vascular abnormality. Retroaortic left renal vein. No abnormal p elvic masses or fluid collections. IMPRESSION: 1. Distal left ureteral stone near the UVJ measuring 3 mm with moderate hydronephrosis. 2: Nonobstructing right nephrolithiasis. Reviewed, dictated and finalized at location B. IMPRESSION: 1. Distal left ureteral stone near the UVJ measuring 3 mm with moderate hydrone phrosis. 2: Nonobstructing right nephrolithiasis.
--- OUTSIDE RECORDS SUMMARY | 2025-01-23 03:24 | XMS_ITS | Clinical Summary ---
Author Organization [facility] Address [facility] [place] [address] Care Team Providers Care Flight Test Mechanic Name Role Phone None, Provider MD Primary Care Provider Unavaila ble Allergies No known active allergies Medications omeprazole 20 MG capsule Take 20 mg by mouth daily. Active Family History Medical History Relation Comments Cancer Father unknown type No Known Problems Mother Relation Status Comments Father Alive Mother Alive Social History Tobacco Use Types Packs/Day Years Used Date Smoking Tobacco: Never Smokeless Tobacco: Never Alcohol Use Standard Drinks/Week Comments Yes 0 (1 standard drink = 0.6 oz pur e alcohol) daily Sex and Gender Information Value Date Recorded Sex Assigned at Not on file Legal Sex Male 8:34 PM CDT Gender Identity Not on file Sexual Orientation Not on file Last Filed Vital Signs Vital Sign Reading Time Taken Comments Blood Pressure 140/81 09/02/2020 10:25 AM EDUCATIONAL INSTITUTION PRESIDENT Pulse 101 09/02/2020 10:00 AM EDUCATIONAL INSTITUTION PRESIDENT Temperature 37.2 C (99 F) 09/02/2020 10:00 AM EDUCATIONAL INSTITUTION PRESIDENT Respiratory Rate 20 09/02/2020 10:00 AM EDUCATIONAL INSTITUTION PRESIDENT Oxygen Saturation 97% 09/02/2020 10:00 AM EDUCATIONAL INSTITUTION PRESIDENT Inhaled Oxygen Concentration - - Weight 136.1 kg (300 lb) 09/02/2020 10:00 AM EDUCATIONAL INSTITUTION PRESIDENT Height 195.6 cm (6' 5) 09/02/2020 10:00 AM EDUCATIONAL INSTITUTION PRESIDENT Body Mass Index 35.57 09/02/2020 10:00 AM EDUCATIONAL INSTITUTION PRESIDENT Plan of Treatment Health Maintenance Due Date Last Done Comments Annual Physical 1984 Hepatitis C 1999 DTaP, Tdap and Td Vaccines ( 1 - Tdap) 2000 Hepatitis B Vaccines (1 of 3 - 19+ 3-dose series) 2000 HPV Vaccines (1 - 3-dose SCD M series) 2008 COVID-19 Vaccine (2023-2 5 season) 2024 Meningococcal B Vaccine Aged Out No l onger eligible based on patient's age to complete this topic Meningococcal Vaccine Aged Out No bridger maria antonia eligible based on patient's age to complete this topic Pneumococcal Vaccine: Pediat rics (0 to 5 Years) and At-Risk Patients (6 to 49 Years) Aged Out No longer eligible b ased on patient's age to complete this topic RSV Immunizations Under 20 Months Aged Out No longer eligible based on patient's age to complete this topic Insurance Care Teams Flight Test Mechanic Relationship Specialty Start Date End Date None, Provider, PCP - General 09/02/20
[2025-01-23 03:27] VITALS: BP 150/80; PULSE 100; RESP 20; TEMP 36.3; O2SAT 100
[2025-01-23 03:37] VITALS: BP 150/80; PULSE 98; RESP 17; TEMP 36.3; O2SAT 100
--- NOTE | 2025-01-23 03:40 | ED_ITS ---
HPI - Abdominal Pain General Chief Complaint: Abdominal Pain <Nanette Brooke MD - Last Filed: 01/23/25 23:49> Stated Complaint: kidney stone or infection <Nanette Brooke MD - Last Filed: 01/23/25 23:49> Time Seen by Provider: 01/23/25 03:26 <Nanette Brooke MD - Last Filed: 01/23/25 23:49> History of Present Illness HPI narrative: Patient presents here with sudden severe left flank pain radiating to his left groin with nausea, over the last few hours he has started noticing that there is blood in his urine. Has never had symptoms like this before <Nanette Brooke MD - Last Filed: 01/23/25 23:49> Related Data Home Medications: Home Medications ?Medication ?Instructions ?Recorded ?Confirmed ?Last Taken ?Type calcium carbonate (Tums) 200 mg PO BID PRN 10/03/24 12/05/24 Unknown History <Nanette Brooke MD - Last Filed: 01/23/25 23:49> Allergies/Adverse Reactions: Allergies Allergy/AdvReac Type Severity Reaction Status Date / Time No Known Allergies Allergy Verified 01/23/25 03:38 <Nanette Brooke MD - Last Filed: 01/23/25 23:49> Review of Systems 2 Review of Systems: All systems reviewed & are unremarkable except as noted in HPI and below <Nanette Brooke MD - Last Filed: 01/23/25 23:49> PMFSH Past Medical History Medical History: Medical History (Updated 01/23/25 @ 07:24 by Jacek Duong MD) Hyperlipidemia Alcohol abuse COVID 06/22/23 Vitamin D deficiency, unspecified Positive ANDREE (antinuclear antibody) Essential (primary) hypertension GERD (gastroesophageal reflux disease) <Nanette Brooke MD - Last Filed: 01/23/25 23:49> Surgical History Surgical History: Surgical History History of decompression of ulnar nerve (~02/13/23) Transposition - Rt H/O umbilical hernia repair Umbilical hernia repair with 6.6cm Paritex underlay mesh 02/08/2020 History of removal of skin mole [place] teeth extracted <Nanette Brooke MD - Last Filed: 01/23/25 23:49> Family History Family History: Family History Mother Arthritis History of lobectomy of lung Lung cancer Grandparent , Age 81 Alzheimer disease Lung cancer Other Colon cancer Other Lung cancer Grandparent Dementia <Nanette Brooke MD - Last Filed: 01/23/25 23:49> Social History Social History: Social History (Updated 10/03/24 @ 13:13 by Shabana Black [facility]) Smoking packs per day: 0.75 Smoking cigarettes per day: 15.0 Years smoked: 10 Smoking pack-years: 7.50 Smoking status: Former smoker Additional smoking assessment comments: 16 YEARS AGO Alcohol intake: current Drinks per week: 56 Alcohol use details: drinks 4 beers a day and shots of vodka Substance use: never Last use: alcohol last use 07/22/23 Do You Feel Safe in your Home?: Yes Lack of Transportation: No Lack of Food: Never True Current Housing: I Have Housing Concerned About Future Housing: No Difficulty Paying Gas/Electric Bills: No Difficulty Paying for Meds: No Currently Unemployed: No Education: Associate Degree Difficulty w/ Childcare or Family Care: No Living arrangements: with family Occupation/Education: occupation Additional occupation/education comments: [employer] Gender identity (if verbalized by the patient): Male Spiritual care concerns: No <Nanette Brooke MD - Last Filed: 01/23/25 23:49> Exam 2 Narrative: EXAMINATION OF ORGAN SYSTEMS/BODY AREAS: Constitutional: Vital signs per nursing GENERAL: Appears quite uncomfortable, lying awkwardly in bed HEAD: Normal with no signs of head trauma. EYES: EOMI, conjunctiva normal ENT: Hearing grossly intact LUNGS: Nonlabored breathing. HEART: [Regular rate and rhythm] ABD: [Soft], slightly tender left lower abdomen EXT: Normal range of motion SKIN: [No rashes or lesions.] NEURO: [Alert and oriented x 3. No gross focal sensory or strength deficits.] PSYCH: Normal affect <Nanette Brooke MD - Last Filed: 01/23/25 23:49> Course Course Emergency Course: Patient care was signed out to me by the overnight physician. CTAB pelvis without contrast impression: 4 mm obstructing calculus in the distal left ureter with mild hydronephrosis. Incidental finding is: Hepatic steatosis Patient is currently afebrile but does have a leukocytosis of 12.5 and hemoglobin of 12.7. Patient does have an elevated potassium of 5.3 and a creatinine of 1.64. This is mildly elevated compared to his recent baseline but patient does have history of chronic kidney disease. UA was positive hematuria negative for infection. Patient was updated on results of his labs and imaging. Patient states he does follow-up with his primary care physician regarding his kidney function. Patient states over the last few days he has not drink very much water due to pain and due to working in the heat. Patient was told to increase his water intake and to have close follow-up with his primary care physician for additional kidney function testing. <Jacek Duong MD - Last Filed: 01/23/25 07:31> Vital Signs Vital signs: Vital Signs Temperature 97.3 F L 01/23/25 03:27 Pulse Rate 100 01/23/25 03:27 Respiratory Rate 20 01/23/25 03:27 Blood Pressure 150/80 H 01/23/25 03:27 Pulse Oximetry 100 01/23/25 03:27 Oxygen Delivery Room Air 01/23/25 03:27 Temperature 97.3 F L 01/23/25 03:37 Pulse Rate 89 01/23/25 07:41 Respiratory Rate 20 01/23/25 07:41 Blood Pressure 123/67 01/23/25 07:41 Pulse Oximetry 99 01/23/25 07:41 Oxygen Delivery Room Air 01/23/25 03:27 <Nanette Brooke MD - Last Filed: 01/23/25 23:49> Vital Signs Temperature 97.3 F L 01/23/25 03:27 Pulse Rate 100 01/23/25 03:27 Respiratory Rate 20 01/23/25 03:27 Blood Pressure 150/80 H 01/23/25 03:27 Pulse Oximetry 100 01/23/25 03:27 Oxygen Delivery Room Air 01/23/25 03:27 Temperature 97.3 F L 01/23/25 03:37 Pulse Rate 89 01/23/25 07:41 Respiratory Rate 20 01/23/25 07:41 Blood Pressure 123/67 01/23/25 07:41 Pulse Oximetry 99 01/23/25 07:41 Oxygen Delivery Room Air 01/23/25 03:27 <Jacek Duong MD - Last Filed: 01/23/25 07:31> MDM - Abdominal Pain MDM Narrative Medical decision making narrative: ED COURSE AND MEDICAL DECISION MAKINM presenting to the emergency department for acute flank pain, symptoms are concerning for likely renal colic versus pyelonephritis. Urinalysis is ordered. [Toradol 15mg, Zofran 4mg] are ordered. CT scan of the abdomen/pelvis is ordered. Labs are remarkable for: Slightly elevated white count, creatinine 1.6, UA with blood. CT scan of the abdomen/pelvis is reviewed by myself and my independent interpretation, I do see a 3 mm UVJ stone on the left. On reevaluation, the patient still having some pain but appears more comfortable. Patient is strongly advised to return to the emergency department for any increasing pain not improving with medications, persistent nausea vomiting, fevers or chills or for any other concerns. Urology follow-up given. Patient is comfortable with this plan and was discharged in fair condition. Procedures: Pulse oximetry interpretation - not hypoxic. Review of medical records. <Nanette Brooke MD - Last Filed: 01/23/25 23:49> Lab Data Result diagrams: 01/23/25 03:38 01/23/25 03:38 <Nanette Brooke MD - Last Filed: 01/23/25 23:49> Labs: Lab Results 01/23/25 01/23/25 Range/Units 03:38 04:13 WBC 12.5 H (4.5-10.0) K/mm3 RBC 3.94 L (4.6-6.20) M/mm3 Hgb 12.7 L (14.0-18.0) g/dL Hct 37.3 L (42.0-52.0) % MCV 94.7 (80-100) fl MCH 32.2 (26-34) pg MCHC 34.0 (32-36) g/dl RDW 11.7 (11.5-14.5) % Plt Count 256 (150-375) k/mm3 MPV 8.9 (7.4-10.4) fl Immature Gran % (Auto) 0.5 (0-0.5) % Neut % (Auto) 80.8 H (45.5-73.1) % Lymph % (Auto) 13.2 L (18.3-44.2) % Cochran % (Auto) 5.2 (2.6-8.5) % Eos % (Auto) 0.0 (0-4.4) % Baso % (Auto) 0.3 (0.2-1.2) % Lymph # (Auto) 1.66 (0.9-3.2) K/mm3 Cochran # (Auto) 0.7 H (0.1-0.6) K/mm3 Eos # (Auto) 0.0 (0-0.3) K/mm3 Baso # (Auto) 0.0 (0.0-0.1) K/mm3 Abs Immat Gran (auto) 0.06 H (0.00-0.031) K/mm3 Absolute Neuts (auto) 10.1 H (1.3-6.7) K/mm3 Absolute Nucleated RBC 0.000 (0.0-0.012) K/mm3 Nucleated RBC % 0.0 (0.0-0.2) % Sodium 126 L (137-145) mmol/L Potassium 5.3 H (3.4-5.0) mmol/L Chloride 97 L (98-107) mmol/L Carbon Dioxide 17 L (22-30) mmol/L Anion Gap 12 (4-12) mmol/L BUN 38 H D (9-20) mg/dL Creatinine 1.64 H (0.7-1.3) mg/dL Estim Creat Clear Calc 82 ml/min Estimated GFR 46 L (59 - ) Glucose 114 H (65-110) mg/dL Calcium 9.0 (8.4-10.2) mg/dL Magnesium 1.7 (1.6-2.3) mg/dL Total Bilirubin 1.2 (0.2-1.3) mg/dL AST 45 (17-59) U/L ALT 44 (6-50) U/L Alkaline Phosphatase 67 (38-126) U/L Total Protein 7.8 (6.3-8.2) g/dL Albumin 4.6 (3.5-5.1) g/dL Lipase 137 (23-300) U/L Urine Color Dark yellow (Yellow) Urine Appearance Clear (Clear) Urine pH 5.5 (5.0-9.0) Ur Specific [place] 1.009 (1.001-1.035) Urine Protein 1+ H (Negative) mg/dL Urine Glucose (UA) Negative (Negative) mg/dL Urine Ketones Negative (Negative) mg/dL Ur Blood (Man) 3+ H (Negative) Urine Nitrate Negative (Negative) Urine Bilirubin Negative (Negative) Urine Urobilinogen 0.2 (<2.0) mg/dL Leukocyte Esterase Rfl Negative (Negative) RITO/UL Urine RBC 11-20 H (0-2) /hpf Urine WBC 0-5 (0-3) /hpf Ur Squamous Epith Cells None seen (Few) /hpf Urine Bacteria None seen /hpf Urine Casts 0-2 <Nanette Brooke MD - Last Filed: 01/23/25 23:49> Lab Results 01/23/25 01/23/25 Range/Units 03:38 04:13 WBC 12.5 H (4.5-10.0) K/mm3 RBC 3.94 L (4.6-6.20) M/mm3 Hgb 12.7 L (14.0-18.0) g/dL Hct 37.3 L (42.0-52.0) % MCV 94.7 (80-100) fl MCH 32.2 (26-34) pg MCHC 34.0 (32-36) g/dl RDW 11.7 (11.5-14.5) % Plt Count 256 (150-375) k/mm3 MPV 8.9 (7.4-10.4) fl Immature Gran % (Auto) 0.5 (0-0.5) % Neut % (Auto) 80.8 H (45.5-73.1) % Lymph % (Auto) 13.2 L (18.3-44.2) % Cochran % (Auto) 5.2 (2.6-8.5) % Eos % (Auto) 0.0 (0-4.4) % Baso % (Auto) 0.3 (0.2-1.2) % Lymph # (Auto) 1.66 (0.9-3.2) K/mm3 Cochran # (Auto) 0.7 H (0.1-0.6) K/mm3 Eos # (Auto) 0.0 (0-0.3) K/mm3 Baso # (Auto) 0.0 (0.0-0.1) K/mm3 Abs Immat Gran (auto) 0.06 H (0.00-0.031) K/mm3 Absolute Neuts (auto) 10.1 H (1.3-6.7) K/mm3 Absolute Nucleated RBC 0.000 (0.0-0.012) K/mm3 Nucleated RBC % 0.0 (0.0-0.2) % Sodium 126 L (137-145) mmol/L Potassium 5.3 H (3.4-5.0) mmol/L Chloride 97 L (98-107) mmol/L Carbon Dioxide 17 L (22-30) mmol/L Anion Gap 12 (4-12) mmol/L BUN 38 H D (9-20) mg/dL Creatinine 1.64 H (0.7-1.3) mg/dL Estim Creat Clear Calc 82 ml/min Estimated GFR 46 L (59 - ) Glucose 114 H (65-110) mg/dL Calcium 9.0 (8.4-10.2) mg/dL Magnesium 1.7 (1.6-2.3) mg/dL Total Bilirubin 1.2 (0.2-1.3) mg/dL AST 45 (17-59) U/L ALT 44 (6-50) U/L Alkaline Phosphatase 67 (38-126) U/L Total Protein 7.8 (6.3-8.2) g/dL Albumin 4.6 (3.5-5.1) g/dL Lipase 137 (23-300) U/L Urine Color Dark yellow (Yellow) Urine Appearance Clear (Clear) Urine pH 5.5 (5.0-9.0) Ur Specific [place] 1.009 (1.001-1.035) Urine Protein 1+ H (Negative) mg/dL Urine Glucose (UA) Negative (Negative) mg/dL Urine Ketones Negative (Negative) mg/dL Ur Blood (Man) 3+ H (Negative) Urine Nitrate Negative (Negative) Urine Bilirubin Negative (Negative) Urine Urobilinogen 0.2 (<2.0) mg/dL Leukocyte Esterase Rfl Negative (Negative) RITO/UL Urine RBC 11-20 H (0-2) /hpf Urine WBC 0-5 (0-3) /hpf Ur Squamous Epith Cells None seen (Few) /hpf Urine Bacteria None seen /hpf Urine Casts 0-2 <Jacek Duong MD - Last Filed: 01/23/25 07:31> Imaging Data Radiologist's impression: ITS Impressions Abdomen/Pelvis CT 01/23/25 07:57 IMPRESSION: 1. Distal left ureteral stone near the UVJ measuring 3 mm with moderate hydronephrosis. 2: Nonobstructing right nephrolithiasis. <Nanette Brooke MD - Last Filed: 01/23/25 23:49> ITS Impressions Abdomen/Pelvis CT 01/23/25 07:57 IMPRESSION: 1. Distal left ureteral stone near the UVJ measuring 3 mm with moderate hydronephrosis. 2: Nonobstructing right nephrolithiasis. <Jacek Duong MD - Last Filed: 01/23/25 07:31> Discharge Plan Discharge Clinical Impression: Kidney stone, Acute kidney injury <Nanette Brooke MD - Last Filed: 01/23/25 23:49> Patient Disposition: Home <Nanette Brooke MD - Last Filed: 01/23/25 23:49> Condition: Stable <Nanette Brooke MD - Last Filed: 01/23/25 23:49> Instructions: Kidney Stones (ED) <Nanette Brooke MD - Last Filed: 01/23/25 23:49> Additional Instructions: Please follow-up with the urologist, try the medications as prescribed, and your pain is worse, please come back to the hospital. Please also make sure that you are keeping hydrated. Have close follow-up with your primary care physician for kidney function testing. Have close follow-up with Urology. If you have any worsening symptoms then please call or return to the emergency department. <Nanette Brooke MD - Last Filed: 01/23/25 23:49> Patient Language: Malay <Nanette Brooke MD - Last Filed: 01/23/25 23:49> Prescriptions: New ondansetron 4 mg tablet,disintegrating 4 mg PO Q8H PRN (Reason: nausea and vomiting) Qty: 10 0RF tamsulosin [Flomax] 0.4 mg capsule 0.4 mg PO DAILY Qty: 14 0RF hydrocodone-acetaminophen 5-325 mg tablet 1 tablet PO Q6H PRN (Reason: pain) Qty: 14 0RF No Action atorvastatin 20 mg tablet 20 mg PO DAILY Qty: 90 3RF calcium carbonate [Tums] 200 mg calcium (500 mg) tablet,chewable 200 mg PO BID PRN olmesartan 40 mg tablet 40 mg PO DAILY Qty: 90 2RF carvedilol 12.5 mg tablet See Rx Instructions .ROUTE .COMPLEX Qty: 60 5RF Dose Instruction: TAKE 1 TABLET BY MOUTH EVERY 12 HOURS WITH FOOD Rx Instructions: TAKE 1 TABLET BY MOUTH EVERY 12 HOURS WITH FOOD <Nanette Brooke MD - Last Filed: 01/23/25 23:49> Follow-up/Referrals: Maria E Aleman MD [Physician] - 2 Days Elda Quinones NP [Primary Care Provider] - <Nanette Brooke MD - Last Filed: 01/23/25 23:49>
[2025-01-23 03:50] LABS: Hematocrit 37.3 % (42.0-52.0); Hemoglobin 12.7 g/dL (14.0-18.0); Immature Granulocyte Percent A 0.5 % (0-0.5); Lymphocytes Absolute Auto 1.66 K/mm3 (0.9-3.2); Mean Corpuscular HGB Conc 34.0 g/dl (32-36); Mean Corpuscular Hemoglobin 32.2 pg (26-34); Mean Corpuscular Volume 94.7 fl (80-100); Nucleated Red Blood Cells Absolute Auto 0.000 K/mm3 (0.0-0.012); Nucleated Red Blood Cells Perc 0.0 % (0.0-0.2); Platelet Count Result 256 k/mm3 (150-375); Red Blood Count 3.94 M/mm3 (4.6-6.20); White Blood Count 12.5 K/mm3 (4.5-10.0)
[2025-01-23 04:04] LABS: Alanine Aminotransferase 44 U/L (6-50); Albumin Level 4.6 g/dL (3.5-5.1); Alkaline Phosphatase 67 U/L (38-126); Anion Gap 12 mmol/L (4-12); Aspartate Amino Transferase 45 U/L (17-59); Bilirubin,Total 1.2 mg/dL (0.2-1.3); Blood Urea Nitrogen 38 mg/dL (9-20); Calcium 9.0 mg/dL (8.4-10.2); Carbon Dioxide 17 mmol/L (22-30); Chloride 97 mmol/L (98-107); Estimated CRCL calculation 82 ml/min; Estimated Glomerular Filt Rate 46; Glucose 114 mg/dL (65-110); Lipase 137 U/L (23-300); Potassium 5.3 mmol/L (3.4-5.0); Sodium 126 mmol/L (137-145); Total Protein 7.8 g/dL (6.3-8.2)
[2025-01-23] MEDS: ONDANSETRON INJ 4 MG/2 ML VIAL IV PUSH (04:14)
[2025-01-23] MEDS: KETOROLAC 15 MG/ML VIAL (*BKC) IV PUSH (04:15)
[2025-01-23 04:16] LABS: Magnesium 1.7 mg/dL (1.6-2.3)
[2025-01-23 04:27] LABS: Non Pathogenic Casts 0-2
[2025-01-23 04:39] LABS: Add Urine Microscopic? YES; Appearance Urine Clear (Clear); Glucose Urine UA Negative (Negative); Leukocyte Esterase Ur Negative LEU/UL (Negative); Nitrate Urine Negative (Negative); Specific Grav Ur 1.009 (1.001-1.035)
[2025-01-23] MEDS: TAMSULOSIN HCL 0.4 MG CAPSULE PO (05:09)
[2025-01-23] MEDS: LACTATED RINGERS 1,000 ML 999 ML IV CONT (05:09)
[2025-01-23 06:53] VITALS: BP 125/70; PULSE 90; RESP 18; O2SAT 100
--- NOTE | 2025-01-23 07:07 | PC.NURSE ---
Assumed care of pt from RENETTA Cervantes. Pt rates pain at 10. Updated on plan. Denies questions
[2025-01-23 07:41] VITALS: BP 123/67; PULSE 89; RESP 20; O2SAT 99
== END 2025-01-23 07:43 | disposition home or self-care (01) ==
PROVIDERS: Emergency Provider Emergency Medicine; PCP Nurse Practitioner
DX: R10.32 Left lower quadrant pain (principal); N20.0 Calculus of kidney; N17.9 Acute kidney failure, unspecified; I10 Essential (primary) hypertension; K21.9 Gastro-esophageal reflux disease without esophagitis; E78.5 Hyperlipidemia, unspecified
CPT/HCPCS: 36415; 74176; 80053; 81001; 83690; 83735; 85025; 96361; 96374; 96375; 99284; A9270; J1885; J2405; J7120

== ENCOUNTER 2025-01-24 06:46 | Emergency (ER) | payer OTHER, SELFPAY ==
--- NOTE | ~2025-01-24 | XR_ITS ---
XR abdomen/kub 1V 01/24/2025 07:41 Indication: Left UVJ stone Procedure: KUB Comparison: No prior studies for comparison. Findings: There is a calcification in the left pelvis measuring 4 mm consistent with left UVJ stone. Impression: 1: 4 mm calcification left pelvis consistent with UVJ stone. Reviewed, dictated and finalized at location B. Impression: 1: 4 mm calcification left pelvis consistent with UVJ stone.
--- OUTSIDE RECORDS SUMMARY | 2025-01-24 06:48 | XMS_ITS | Clinical Summary ---
Author Organization [facility] Address [facility] [place] [address] Care Team Providers Care Health Evaluator Name Role Phone None, Provider MD Primary [...] Comments Blood Pressure 140/81 09/02/2020 10:25 AM PREVENTION COORDINATOR Pulse 101 09/02/2020 10:00 AM PREVENTION COORDINATOR Temperature 37.2 C (99 F) 09/02/2020 10:00 AM PREVENTION COORDINATOR Respiratory Rate 20 09/02/2020 10:00 AM PREVENTION COORDINATOR Oxygen Saturation 97% 09/02/2020 10:00 AM PREVENTION COORDINATOR Inhaled Oxygen Concentration - - Weight 136.1 kg (300 lb) 09/02/2020 10:00 AM PREVENTION COORDINATOR Height 195.6 cm (6' 5) 09/02/2020 10:00 AM PREVENTION COORDINATOR Body Mass Index 35.57 09/02/2020 10:00 AM PREVENTION COORDINATOR Plan of Treatment Health Maintenance Due Date [...] to complete this topic Insurance Care Teams Health Evaluator Relationship Specialty Start Date End Date None, Provider, PCP - General 09/02/20
[2025-01-24 06:50] VITALS: BP 153/96; PULSE 82; RESP 18; TEMP 36.6; O2SAT 99
--- OUTSIDE RECORDS SUMMARY | 2025-01-24 07:12 | XMS_ITS | Clinical Summary ---
Author Organization [facility] Address [facility] [place] [address] Care Team Providers Care Retail Special Event Associate Name Role Phone None, Provider MD Primary [...] Comments Blood Pressure 140/81 09/02/2020 10:25 AM TRANSPORT TANK TECHNICIAN Pulse 101 09/02/2020 10:00 AM TRANSPORT TANK TECHNICIAN Temperature 37.2 C (99 F) 09/02/2020 10:00 AM TRANSPORT TANK TECHNICIAN Respiratory Rate 20 09/02/2020 10:00 AM TRANSPORT TANK TECHNICIAN Oxygen Saturation 97% 09/02/2020 10:00 AM TRANSPORT TANK TECHNICIAN Inhaled Oxygen Concentration - - Weight 136.1 kg (300 lb) 09/02/2020 10:00 AM TRANSPORT TANK TECHNICIAN Height 195.6 cm (6' 5) 09/02/2020 10:00 AM TRANSPORT TANK TECHNICIAN Body Mass Index 35.57 09/02/2020 10:00 AM TRANSPORT TANK TECHNICIAN Plan of Treatment Health Maintenance Due Date [...] to complete this topic Insurance Care Teams Retail Special Event Associate Relationship Specialty Start Date End Date None, Provider, PCP - General 09/02/20
[2025-01-24 07:18] VITALS: BP 150/96; PULSE 75; RESP 16; O2SAT 98
[2025-01-24] MEDS: ONDANSETRON INJ 4 MG/2 ML VIAL IV PUSH (07:30)
--- NOTE | 2025-01-24 07:30 | ED.MALEGU ---
HPI - Male Genitourinary General Chief complaint: Urogenital-Male Stated complaint: worsening kidney stone pain, here yesterday Time Seen by Provider: 01/24/25 06:59 History of Present Illness HPI Narrative: Patient is a 44-year-old male who presents ER with left-sided flank pain. Ongoing for last couple days. Diagnosed with a 4 mm distal ureter stone on left side 1 day ago. Pain continues to increase. Left flank moving into the groin. No blood in urine at this time. No dysuria. Pain is typically 6/10 but then increases to 9/10. Minimal relief with hydrocodone. Related Data Home Medications ?Medication ?Instructions ?Recorded ?Confirmed ?Last Taken ?Type calcium carbonate (Tums) 200 mg PO BID PRN 10/03/24 12/05/24 Unknown History Allergies Allergy/AdvReac Type Severity Reaction Status Date / Time No Known Allergies Allergy Verified 01/24/25 06:56 FOR[facility]LY [facility] Past Medical History Medical History (Updated 01/24/25 @ 09:26 by Shyam Crawford MD) Hyperlipidemia Alcohol abuse COVID 06/22/23 Vitamin D deficiency, unspecified Positive ANDREE (antinuclear antibody) Essential (primary) hypertension GERD (gastroesophageal reflux disease) Surgical History Surgical History History of decompression of ulnar nerve (~02/13/23) Transposition - Rt H/O umbilical hernia repair Umbilical hernia repair with 6.6cm Paritex underlay mesh 02/08/2020 History of removal of skin mole [place] teeth extracted Family History Family History Mother Arthritis History of lobectomy of lung Lung cancer Grandparent , Age 81 Alzheimer disease Lung cancer Other Colon cancer Other Lung cancer Grandparent Dementia Social History Social History (Updated 10/03/24 @ 13:13 by Shabana Black CMA) Smoking packs per day: 0.75 Smoking cigarettes per day: 15.0 Years smoked: 10 Smoking pack-years: 7.50 Smoking status: Former smoker Additional smoking assessment comments: 16 YEARS AGO Alcohol intake: current Drinks per week: 56 Alcohol use details: drinks 4 beers a day and shots of vodka Substance use: never Last use: alcohol last use 07/22/23 Do You Feel Safe in your Home?: Yes Lack of Transportation: No Lack of Food: Never True Current Housing: I Have Housing Concerned About Future Housing: No Difficulty Paying Gas/Electric Bills: No Difficulty Paying for Meds: No Currently Unemployed: No Education: Associate Degree Difficulty w/ Childcare or Family Care: No Living arrangements: with family Occupation/Education: occupation Additional occupation/education comments: [employer] Gender identity (if verbalized by the patient): Male Spiritual care concerns: No Course Course Emergency Course: Pain improved with Toradol. Reviewed imaging with urology. Patient would like to manage at home. Recommend increasing fluids. Recommend he contact Urology office for close follow-up. Vital Signs Vital signs: Vital Signs Temperature 97.9 F 01/24/25 06:50 Pulse Rate 82 01/24/25 06:50 Respiratory Rate 18 01/24/25 06:50 Blood Pressure 153/96 H 01/24/25 06:50 Pulse Oximetry 99 01/24/25 06:50 Oxygen Delivery Room Air 01/24/25 06:50 Temperature 97.9 F 01/24/25 06:50 Pulse Rate 79 01/24/25 08:28 Respiratory Rate 16 01/24/25 08:28 Blood Pressure 132/72 01/24/25 08:28 Pulse Oximetry 100 01/24/25 08:28 Oxygen Delivery Room Air 01/24/25 06:50 MDM - Male Genitourinary Lab Data Labs: Lab Results 01/24/25 Range/Units 07:48 Urine Color Yellow (Yellow) Urine Appearance Clear (Clear) Urine pH 5.0 (5.0-9.0) Ur Specific [place] 1.012 (1.001-1.035) Urine Protein Negative (Negative) mg/dL Urine Glucose (UA) Negative (Negative) mg/dL Urine Ketones Negative (Negative) mg/dL Ur Blood (Man) Trace (Negative) Urine Nitrate Negative (Negative) Urine Bilirubin Negative (Negative) Urine Urobilinogen 0.2 (<2.0) mg/dL Leukocyte Esterase Rfl Negative (Negative) RITO/UL Urine RBC 0-2 (0-2) /hpf Urine WBC 0-5 (0-3) /hpf Ur Squamous Epith Cells None seen (Few) /hpf Urine Bacteria None seen /hpf Urine Casts 0-2 Imaging Data Radiologist's impression: ITS Impressions Abdomen X-Ray 01/24/25 07:44 Impression: 1: 4 mm calcification left pelvis consistent with UVJ stone. Discharge Plan Discharge Clinical Impression: Ureterolithiasis Patient Disposition: Home Condition: Stable Instructions: Kidney Stones (ED), How to Strain Your Urine (ED) Additional Instructions: You are passing a 4 mm kidney stone. Make sure to stay hydrated. Follow-up with urology. Return the ER if you have fever over 100.4? F, you cannot keep down food/water/medication, or you have additional concerns. Patient Language: Cuban Prescriptions: No Action atorvastatin 20 mg tablet 20 mg PO DAILY Qty: 90 3RF calcium carbonate [Tums] 200 mg calcium (500 mg) tablet,chewable 200 mg PO BID PRN ondansetron 4 mg tablet,disintegrating 4 mg PO Q8H PRN (Reason: nausea and vomiting) Qty: 10 0RF tamsulosin [Flomax] 0.4 mg capsule 0.4 mg PO DAILY Qty: 14 0RF hydrocodone-acetaminophen 5-325 mg tablet 1 tablet PO Q6H PRN (Reason: pain) Qty: 14 0RF olmesartan 40 mg tablet 40 mg PO DAILY Qty: 90 2RF carvedilol 12.5 mg tablet See Rx Instructions .ROUTE .COMPLEX Qty: 60 5RF Dose Instruction: TAKE 1 TABLET BY MOUTH EVERY 12 HOURS WITH FOOD Rx Instructions: TAKE 1 TABLET BY MOUTH EVERY 12 HOURS WITH FOOD Follow-up/Referrals: Shadi Monte MD [Physician] - 3 Days Elda Quinones NP [Primary Care Provider] -
[2025-01-24] MEDS: KETOROLAC 30 MG/ML VIAL (*BKC) IV PUSH (07:32)
[2025-01-24 07:34] VITALS: BP 129/79; PULSE 79; RESP 17; O2SAT 97
[2025-01-24] MEDS: SODIUM CHLORIDE 0.9% IV 1,000 ML 999 ML IV CONT (07:46)
[2025-01-24 07:48] VITALS: BP 138/85; PULSE 77; RESP 16; O2SAT 98
[2025-01-24 08:17] LABS: Add Urine Microscopic? YES; Appearance Urine Clear (Clear); Glucose Urine UA Negative (Negative); Leukocyte Esterase Ur Negative LEU/UL (Negative); Nitrate Urine Negative (Negative); Non Pathogenic Casts 0-2; Specific Grav Ur 1.012 (1.001-1.035)
[2025-01-24 08:28] VITALS: BP 132/72; PULSE 79; RESP 16; O2SAT 100
[2025-01-24 09:43] VITALS: BP 121/63; PULSE 84; RESP 20; O2SAT 99
== END 2025-01-24 09:45 | disposition home or self-care (01) ==
PROVIDERS: Emergency Provider Emergency Medicine; PCP Nurse Practitioner
DX: N20.1 Calculus of ureter (principal); I10 Essential (primary) hypertension; E78.5 Hyperlipidemia, unspecified; E55.9 Vitamin D deficiency, unspecified; K21.9 Gastro-esophageal reflux disease without esophagitis; Z86.16 Personal history of COVID-19; Z87.891 Personal history of nicotine dependence; Z79.899 Other long term (current) drug therapy
CPT/HCPCS: 74018; 81001; 96361; 96374; 96375; 99284; J1885; J2405; J7030

== ENCOUNTER 2025-01-25 13:44 | Outpatient (CLI) | payer OTHER, SELFPAY ==
--- NOTE | ~2025-01-25 | XR_ITS ---
EXAMINATION: XR abdomen/kub 1V DATE: 01/25/2025 14:16 INDICATION: Ureteral stone TECHNIQUE: A supine view of the abdomen on 2 radiographs was obtained. COMPARISON: CT dated 01/23/2025 and KUB dated 01/24/2025 FINDINGS: No interval change in position of a 3 mm stone at the left ureterovesicular junction. The one-[address] one seen at the lower pole the right kidney is unable be distinguished from the superimposed mottled pattern of gas and stool in the overlying colon. No dilated loops of bowel to suggest obstruction. IMPRESSION: 1. Unchanged 3 mm stone at the left ureterovesicular junction. Reviewed, dictated and finalized at location A.
== END 2025-01-25 13:45 | disposition home or self-care (01) ==
PROVIDERS: PCP Nurse Practitioner; Visit Provider Urology
DX: N20.1 Calculus of ureter (principal)
CPT/HCPCS: 74018

== ENCOUNTER 2025-05-05 09:19 | Emergency (ER) | payer OTHER, SELFPAY ==
--- NOTE | ~2025-05-05 | XR_ITS ---
EXAMINATION: XR ankle LT min 3V, 05/05/2025 9:46 INSIDE OUTSIDE SALES REPRESENTATIVE HISTORY: LT lateral ankle pain/swelling 6x days no injury COMPARISON: No comparisons available. Findings: No acute fracture or malalignment. No significant degenerative changes. Soft tissues unremarkable. Impression: No acute fracture or malalignment. Reviewed, dictated and finalized at location P. DE OUTSIDE SALES REPRESENTATIVE Impression: No acute fracture or malalignment.
[2025-05-05 09:30] VITALS: BP 160/98; PULSE 94; RESP 18; TEMP 36.4; O2SAT 97
--- NOTE | 2025-05-05 09:35 | ED.LOWEXIN ---
HPI - Extremity Injury (Lower) General Chief Complaint: Extremity Injury, Lower Stated Complaint: Left Ankle Pain Time Seen by Provider: 05/05/25 10:15 Source: patient and RN notes reviewed Mode of arrival: ambulatory Limitations: no limitations History of Present Illness HPI Narrative: 45-year-old male Presents Express Care complaining left ankle/foot pain for 1 week. Patient denies any injuries. Said the pain primarily started near his Achilles tendon at the bottom of his heel. Patient has been limping on his left foot due to pain. Since then the patient reports redness, swelling, pain throughout his left foot and ankle. Patient has any fevers body eczema chills, nausea vomiting, chest pain, difficulty breathing, or any other symptoms. Patient's has been taking Motrin with some relief. Patient denies any numbness, tingling or any other injuries. Patient reports a history of high cholesterol and hypertension. Related Data Home Medications ?Medication ?Instructions ?Recorded ?Confirmed ?Last Taken ?Type calcium carbonate (Tums) 200 mg PO BID PRN 10/03/24 12/05/24 Unknown History Allergies Allergy/AdvReac Type Severity Reaction Status Date / Time No Known Allergies Allergy Verified 05/05/25 10:14 Review of Systems Review of Systems: CONSTITUTIONAL: Denies fever, chills, or sweats. EYES: Denies visual changes, redness, or discharge. ENT: Denies rhinorrhea, congestion, sore throat, or otalgia. CARDIOVASCULAR: Denies chest pain, palpitations, or edema. RESPIRATORY: Denies cough or dyspnea. GASTROINTESTINAL: Denies abdominal pain, nausea, vomiting, or diarrhea. GENITOURINARY: Denies dysuria or hematuria. SKIN: Denies rash, wound, or itching. MUSCULOSKELETAL: Denies back pain, joint pain, or myalgia. Positive for left ankle/foot pain/swelling NEUROLOGIC: Denies headache, numbness, or weakness. PSYCHIATRIC: Denies anxiety or depression. All other systems reviewed are negative, except as documented in HPI. FOR[facility]LY [facility] Past Medical History Medical History Hyperlipidemia Alcohol abuse COVID 06/22/23 Vitamin D deficiency, unspecified Positive ANDREE (antinuclear antibody) Essential (primary) hypertension GERD (gastroesophageal reflux disease) Surgical History Surgical History History of decompression of ulnar nerve (~02/13/23) Transposition - Rt H/O umbilical hernia repair Umbilical hernia repair with 6.6cm Paritex underlay mesh 02/08/2020 History of removal of skin mole [place] teeth extracted Family History Family History Mother Arthritis History of lobectomy of lung Lung cancer Grandparent , Age 81 Alzheimer disease Lung cancer Other Colon cancer Other Lung cancer Grandparent Dementia Social History Social History Smoking packs per day: 0.75 Smoking cigarettes per day: 15.0 Years smoked: 10 Smoking pack-years: 7.50 Additional smoking assessment comments: 16 YEARS AGO Alcohol intake: current Drinks per week: 56 Alcohol use details: drinks 4 beers a day and shots of vodka Substance use: never Last use: alcohol last use 07/22/23 Do You Feel Safe in your Home?: Yes Lack of Transportation: No Lack of Food: Never True Current Housing: I Have Housing Concerned About Future Housing: No Difficulty Paying Gas/Electric Bills: No Difficulty Paying for Meds: No Currently Unemployed: No Education: Associate Degree Difficulty w/ Childcare or Family Care: No Living arrangements: with family Occupation/Education: occupation Additional occupation/education comments: [employer] Gender identity (if verbalized by the patient): Male Spiritual care concerns: No Comments At the time of my signature, I reviewed and agree with the nursing past medical, surgical, social, and family history. There is no relevant family history pertinent to the patient complaint. Exam Narrative: GENERAL: This is a well-nourished, well-developed adult, in no apparent distress. They are non ill-appearing, nontoxic appearing. HEAD: normocephalic, atraumatic. EYES: Sclera clear/white. Vision is grossly intact. Conjunctiva normal. Extraocular movement intact. EARS: External ears normal Hearing grossly intact. NOSE: External nose normal THROAT: Mucous membranes moist NECK: Neck supple CARDIOVASCULAR: Regular rate and rhythm RESPIRATORY: Respiratory rate normal, respiratory effort nonlabored, no respiratory distress NEURO: awake, alert, and oriented to person, place and time. There were no obvious focal neurologic abnormalities. EXTREMITIES: Left foot/ankle: No obvious deformity, injury, or bruising. Left foot is edematous in 2+ pitting extending up to the left ankle. Left foot is erythematous. Mildly tender to palpate. It is warm to touch compared to the right foot. Normal range of motion. No bony tenderness. Capillary refill less than 3 seconds. Left pedal Pulse 2 +palpable. Normal sensation. Negative Escobedo's test. Patient able the wound was toes. Neurovascular status intact distal injury. No tenderness to palpation of the calf muscle. No Palpable cord. No pain throughout the deep venous system. BACK: Nontender without deformity. Course Course Emergency Course: Portions of this record may have been created with voice recognition software Level of Care: Express Care Visit Vital Signs Vital signs: Vital Signs Temperature 97.6 F 05/05/25 09:30 Pulse Rate 94 05/05/25 09:30 Respiratory Rate 18 05/05/25 09:30 Blood Pressure 160/98 H 05/05/25 09:30 Pulse Oximetry 97 05/05/25 09:30 Oxygen Delivery Room Air 05/05/25 09:30 Temperature 97.6 F 05/05/25 09:30 Pulse Rate 94 05/05/25 09:30 Respiratory Rate 18 05/05/25 09:30 Blood Pressure 160/98 H 05/05/25 09:30 Pulse Oximetry 97 05/05/25 09:30 Oxygen Delivery Room Air 05/05/25 09:30 Reviewed MDM - Extremity Injury (Lower) MDM Narrative Medical decision making narrative: Your x-ray of left ankle is negative for any fractures or acute findings. Patient likely has cellulitis. Will treat with cephalexin. Discussed physical exam findings. Advised supportive measures and signs/symptoms to go to the ER. Pt is appropriate for outpt treatment and f/u. Differential Diagnosis Differential diagnosis: Likely other (Cellulitis, gout, arthritis, fracture, sprain) Critical Care Time Critical Care Time Critical Care Time: No Discharge Plan Discharge Clinical Impression: Cellulitis of left lower extremity Patient Disposition: Home Condition: Stable Instructions: Antibiotic Form, Cellulitis (ED) Additional Instructions: X-ray of your left ankle is negative for any fractures or acute findings. Clean with soap and water only; Avoid using alcohol and peroxide. Elevate the affected area if possible You may take ibuprofen 600 mg to 800 mg every 6-8 hours. Do not exceed more than 800 mg of ibuprofen per dose. Do not exceed more than 3200 mg ibuprofen in a day. You may take up to 1000 mg Tylenol every 6-8 hours. Do not exceed 1000 mg per dose, do exceed more than 4000 mg of Tylenol in a day. May apply ice to help with pain and swelling. 20 minutes few times a day. Take antibiotic until it's gone. Please schedule a follow up visit with your personal physician for further evaluation and treatment within 3-5days Please go to the ER if you developed worsening redness, swelling, pain, chest pain, difficulty breathing, fevers, red streaking up the extremity, or any serious concerns. Patient Language: Croatian Prescriptions: New cephalexin 500 mg capsule 500 mg PO Q6H 7 Days Qty: 28 0RF No Action calcium carbonate [Tums] 200 mg calcium (500 mg) tablet,chewable 200 mg PO BID PRN tamsulosin [Flomax] 0.4 mg capsule 0.4 mg PO DAILY Qty: 14 0RF hydrocodone-acetaminophen 5-325 mg tablet 1 tablet PO Q6H PRN (Reason: pain) Qty: 14 0RF olmesartan 40 mg tablet See Rx Instructions .ROUTE .COMPLEX Qty: 90 2RF Dose Instruction: TAKE 1 TABLET BY MOUTH DAILY Rx Instructions: TAKE 1 TABLET BY MOUTH DAILY atorvastatin 20 mg tablet 20 mg PO DAILY Qty: 90 2RF carvedilol 12.5 mg tablet See Rx Instructions .ROUTE .COMPLEX Qty: 60 5RF Dose Instruction: TAKE 1 TABLET BY MOUTH EVERY 12 HOURS WITH FOOD Rx Instructions: TAKE 1 TABLET BY MOUTH EVERY 12 HOURS WITH FOOD Follow-up/Referrals: Elda Quinones APRN [Primary Care Provider, Internal Medicine] Time of Disposition: 10:31
== END 2025-05-05 10:42 | disposition home or self-care (01) ==
PROVIDERS: PCP Nurse Practitioner
DX: L03.116 Cellulitis of left lower limb (principal); I10 Essential (primary) hypertension; E78.5 Hyperlipidemia, unspecified; K21.9 Gastro-esophageal reflux disease without esophagitis; Z86.16 Personal history of COVID-19; Z87.891 Personal history of nicotine dependence
CPT/HCPCS: 73610; 99213; G0463

== ENCOUNTER 2025-05-08 12:05 | Emergency (ER) | payer OTHER, SELFPAY ==
--- NOTE | ~2025-05-08 | US_ITS ---
EXAMINATION: US venous doppler LE , 05/08/2025 16:09 [employer]VAGE LABORER HISTORY: leg edema and erythema Comparison: None Technique: [place]ais-scale and color Doppler images were attempted of the lower saphenofemoral junction, common femoral vein,superficial femoral vein, proximal deep femoral vein, proximal deep femoral vein, popliteal vein and posterior tibial veins. Findings: Deep Venous System:Normal flow, augmentation and compressibility. No echogenic thrombus identified. The contralateral saphenofemoral junction appears unremarkable. Superficial Venous SystemNo superficial thrombophlebitis. Soft tissues: Soft tissues are unremarkable. Impression: Negative for DVT. Reviewed, dictated and finalized at location P. AGE LABORER Impression: Negative for DVT.
[2025-05-08 12:08] VITALS: BP 161/99; PULSE 88; RESP 16; TEMP 36.9; O2SAT 100
--- NOTE | 2025-05-08 15:21 | ED_ITS ---
HPI - General Adult General Chief complaint: Extremity Problem,Nontraumatic Stated complaint: L foot pain, swelling, cellulitis? Time Seen by Provider: 05/08/25 15:06 History of Present Illness HPI narrative: 45-year-old male present to the emergency department for evaluation for left lower extremity swelling. Patient began having swelling of his left foot on 04/29. Symptoms worsened through Thursday and patient did present to urgent care on Thursday and was started on cephalexin. Patient has been on antibiotics Thursday and Thursday and felt that the lower extremity/foot swelling was worsening along with worsening erythema. Related Data Home Medications ?Medication ?Instructions ?Recorded ?Confirmed ?Last Taken ?Type calcium carbonate (Tums) 200 mg PO BID PRN 10/03/24 0 12/05/24 Unknown History Allergies Allergy/AdvReac Type Severity Reaction Status Date / Time No Known Allergies Allergy Verified 05/08/25 12:06 Review of Systems 2 Review of Systems: All systems reviewed & are unremarkable except as noted in HPI and below PMFSH Past Medical History Medical History Hyperlipidemia Alcohol abuse COVID 06/22/23 Vitamin D deficiency, unspecified Positive ANDREE (antinuclear antibody) Essential (primary) hypertension GERD (gastroesophageal reflux disease) Surgical History Surgical History History of decompression of ulnar nerve (~02/13/23) Transposition - Rt H/O umbilical hernia repair Umbilical hernia repair with 6.6cm Paritex underlay mesh 02/08/2020 History of removal of skin mole [place] teeth extracted Family History Family History Mother Arthritis History of lobectomy of lung Lung cancer Grandparent , Age 81 Alzheimer disease Lung cancer Other Colon cancer Other Lung cancer Grandparent Dementia Social History Social History Smoking packs per day: 0.75 Smoking cigarettes per day: 15.0 Years smoked: 10 Smoking pack-years: 7.50 Additional smoking assessment comments: 16 YEARS AGO Alcohol intake: current Drinks per week: 56 Alcohol use details: drinks 4 beers a day and shots of vodka Substance use: never Last use: alcohol last use 07/22/23 Do You Feel Safe in your Home?: Yes Lack of Transportation: No Lack of Food: Never True Current Housing: I Have Housing Concerned About Future Housing: No Difficulty Paying Gas/Electric Bills: No Difficulty Paying for Meds: No Currently Unemployed: No Education: Associate Degree Difficulty w/ Childcare or Family Care: No Living arrangements: with family Occupation/Education: occupation Additional occupation/education comments: [employer] Gender identity (if verbalized by the patient): Male Spiritual care concerns: No Exam 2 Narrative: APPEARANCE: Well appearing, no pain, no distress, well-nourished. HEAD: normocephalic, atraumatic. EYES: PERRLA/EOMI, conjunctivae clear. NOSE: Normal no drainage EARS:TMS clear with good light reflex. THROAT: Pharynx clear, no exudate. NECK: Supple. No adenopathy, no masses. RESPIRATORY: Airway patent, respirations nonlabored. Clear to auscultation bilaterally, no rales, rhonchi, wheezing. CARDIOVASCULAR: Regular rate and rhythm without murmurs rubs or gallops. ABDOMINAL: Soft, nontender, nondistended, normal bowel sounds MUSCULOSKELETAL: Left lower extremity edema NEURO: Alert. Cranial nerves II through XII intact. Good gait. Good coordination SKIN: erythema to left foot Course Vital Signs Vital signs: Vital Signs Temperature 98.4 F 05/08/25 12:08 Pulse Rate 88 05/08/25 12:08 Respiratory Rate 16 05/08/25 12:08 Blood Pressure 161/99 H 05/08/25 12:08 Pulse Oximetry 100 05/08/25 12:08 Oxygen Delivery Room Air 05/08/25 12:08 Temperature 98.4 F 05/08/25 12:08 Pulse Rate 76 05/08/25 17:45 Respiratory Rate 19 05/08/25 17:45 Blood Pressure 154/91 H 05/08/25 17:45 Pulse Oximetry 100 05/08/25 17:45 Oxygen Delivery Room Air 05/08/25 12:08 Medical Decision Making [facility] Narrative Medical decision making narrative: [age] old male presents emergency department for evaluation for lower extremity swelling. Patient has no prior history of cellulitis. Patient has been on cephalexin for last few days and has no improvement in the leg swelling. Patient has no prior history of PE or DVT. Ultrasound was negative for DVT. Patient is currently afebrile with no leukocytosis. I did discuss admission with the patient and he did prefer outpatient treatment. Patient was treated with 600 mg of IV clinda and switched to clindamycin. Patient was educated on reasons to return to the emergency department. All questions concerns were addressed Differential Diagnosis Differential Diagnosis: Cellulitis, gout, DVT Vital Signs Vital Signs: Vital Signs Temperature 98.4 F 05/08/25 12:08 Pulse Rate 88 05/08/25 12:08 Respiratory Rate 16 05/08/25 12:08 Blood Pressure 161/99 H 05/08/25 12:08 Pulse Oximetry 100 05/08/25 12:08 Oxygen Delivery Room Air 05/08/25 12:08 Temperature 98.4 F 05/08/25 12:08 Pulse Rate 76 05/08/25 17:45 Respiratory Rate 19 05/08/25 17:45 Blood Pressure 154/91 H 05/08/25 17:45 Pulse Oximetry 100 05/08/25 17:45 Oxygen Delivery Room Air 05/08/25 12:08 Lab Data Lab results reviewed: Yes I reviewed the patient's lab results. 05/08/25 15:37 05/08/25 15:37 Labs: Lab Results 05/08/25 Range/Units 15:37 WBC 9.6 (4.5-10.0) K/mm3 RBC 3.75 L (4.6-6.20) M/mm3 Hgb 12.6 L (14.0-18.0) g/dL Hct 37.6 L (42.0-52.0) % MCV 100.3 H (80-100) fl MCH 33.6 (26-34) pg MCHC 33.5 (32-36) g/dl RDW 12.1 (11.5-14.5) % Plt Count 269 (150-375) k/mm3 MPV 8.7 (7.4-10.4) fl Immature Gran % (Auto) 0.5 (0-0.5) % Neut % (Auto) 70.2 (45.5-73.1) % Lymph % (Auto) 21.8 (18.3-44.2) % [place] % (Auto) 6.1 (2.6-8.5) % Eos % (Auto) 1.1 (0-4.4) % Baso % (Auto) 0.3 (0.2-1.2) % Lymph # (Auto) 2.09 (0.9-3.2) K/mm3 [place] # (Auto) 0.6 (0.1-0.6) K/mm3 Eos # (Auto) 0.1 (0-0.3) K/mm3 Baso # (Auto) 0.0 (0.0-0.1) K/mm3 Abs Immat Gran (auto) 0.05 H (0.00-0.031) K/mm3 Absolute Neuts (auto) 6.7 (1.3-6.7) K/mm3 Absolute Nucleated RBC 0.000 (0.0-0.012) K/mm3 Nucleated RBC % 0.0 (0.0-0.2) % PT 14.4 (11.1-14.7) Seconds INR 1.1 APTT 27.4 (22.3-36.8) Seconds Sodium 136 L (137-145) mmol/L Potassium 4.1 (3.4-5.0) mmol/L Chloride 103 (98-107) mmol/L Carbon Dioxide 25 (22-30) mmol/L Anion Gap 8 (4-12) mmol/L BUN 13 D (9-20) mg/dL Creatinine 0.84 (0.7-1.3) mg/dL Estim Creat Clear Calc 156 ml/min Estimated GFR > 60 (59 - ) Glucose 106 (65-110) mg/dL Calcium 9.1 (8.4-10.2) mg/dL Total Bilirubin 0.8 (0.2-1.3) mg/dL AST 40 (17-59) U/L ALT 31 (6-50) U/L Alkaline Phosphatase 91 (38-126) U/L NT-Pro-B Natriuret Pep 224 H (19.9-100) pg/mL Total Protein 7.5 (6.3-8.2) g/dL Albumin 4.2 (3.5-5.1) g/dL Discharge Plan Discharge Clinical Impression: Cellulitis, Leg swelling Patient Disposition: Home Condition: Stable Instructions: Antibiotic Form, Cellulitis (ED) Additional Instructions: Stop taking the Keflex and start taking clindamycin. Have close follow-up with your primary care physician. If you have any worsening symptoms then please call or return to the emergency department. Patient Language: Sudanese Prescriptions: New clindamycin HCl [Cleocin HCl] 300 mg capsule 300 mg PO Q6H 7 Days Qty: 28 0RF Discontinued cephalexin 500 mg capsule 500 mg PO Q6H 7 Days Qty: 28 0RF No Action calcium carbonate [Tums] 200 mg calcium (500 mg) tablet,chewable 200 mg PO BID PRN tamsulosin [Flomax] 0.4 mg capsule 0.4 mg PO DAILY Qty: 14 0RF hydrocodone-acetaminophen 5-325 mg tablet 1 tablet PO Q6H PRN (Reason: pain) Qty: 14 0RF olmesartan 40 mg tablet See Rx Instructions .ROUTE .COMPLEX Qty: 90 2RF Dose Instruction: TAKE 1 TABLET BY MOUTH DAILY Rx Instructions: TAKE 1 TABLET BY MOUTH DAILY atorvastatin 20 mg tablet 20 mg PO DAILY Qty: 90 2RF carvedilol 12.5 mg tablet See Rx Instructions .ROUTE .COMPLEX Qty: 60 5RF Dose Instruction: TAKE 1 TABLET BY MOUTH EVERY 12 HOURS WITH FOOD Rx Instructions: TAKE 1 TABLET BY MOUTH EVERY 12 HOURS WITH FOOD Follow-up/Referrals: Elda Quinones APRN [Primary Care Provider, Internal Medicine] Stand Alone Forms: Work/School Release IP
[2025-05-08 15:38] VITALS: BP 159/93; PULSE 84; RESP 18; O2SAT 98
--- OUTSIDE RECORDS SUMMARY | 2025-05-08 15:41 | XMS_ITS | Clinical Summary ---
Author Organization [facility] Address [facility] [place] [address] Care Team Providers Care Catering Driver Name Role Phone None, Provider MD Primary [...] Comments Blood Pressure 140/81 09/02/2020 10:25 AM THERAPIST RADIATION Pulse 101 09/02/2020 10:00 AM THERAPIST RADIATION Temperature 37.2 C (99 F) 09/02/2020 10:00 AM THERAPIST RADIATION Respiratory Rate 20 09/02/2020 10:00 AM THERAPIST RADIATION Oxygen Saturation 97% 09/02/2020 10:00 AM THERAPIST RADIATION Inhaled Oxygen Concentration - - Weight 136.1 kg (300 lb) 09/02/2020 10:00 AM THERAPIST RADIATION Height 195.6 cm (6' 5) 09/02/2020 10:00 AM THERAPIST RADIATION Body Mass Index 35.57 09/02/2020 10:00 AM THERAPIST RADIATION Plan of Treatment Health Maintenance Due Date Last Done Comments Annual Physical 1984 Hepatitis C 1999 DTaP, Tdap and Td Vaccines ( 1 - Tdap) 2000 Hepatitis B Vaccines (1 of 3 - 19+ 3-dose series) 2000 HPV Vaccines (1 - 3-dose SCD M series) 2008 COVID-19 Vaccine (2024-2 6 season) 2025 Influenza Adult (#1) 2025 Hepatitis A Vaccines Aged Out No long er eligible based on patient's age to complete this topic Meningococcal B Vaccine Aged Out No l [...] to complete this topic Insurance Care Teams Catering Driver Relationship Specialty Start Date End Date None, Provider, PCP - General 09/02/20
[2025-05-08 16:02] LABS: Hematocrit 37.6 % (42.0-52.0); Hemoglobin 12.6 g/dL (14.0-18.0); Immature Granulocyte Percent A 0.5 % (0-0.5); Lymphocytes Absolute Auto 2.09 K/mm3 (0.9-3.2); Mean Corpuscular HGB Conc 33.5 g/dl (32-36); Mean Corpuscular Hemoglobin 33.6 pg (26-34); Mean Corpuscular Volume 100.3 fl (80-100); Nucleated Red Blood Cells Absolute Auto 0.000 K/mm3 (0.0-0.012); Nucleated Red Blood Cells Perc 0.0 % (0.0-0.2); Platelet Count Result 269 k/mm3 (150-375); Red Blood Count 3.75 M/mm3 (4.6-6.20); White Blood Count 9.6 K/mm3 (4.5-10.0)
[2025-05-08 16:12] LABS: Alanine Aminotransferase 31 U/L (6-50); Albumin Level 4.2 g/dL (3.5-5.1); Alkaline Phosphatase 91 U/L (38-126); Anion Gap 8 mmol/L (4-12); Aspartate Amino Transferase 40 U/L (17-59); Bilirubin,Total 0.8 mg/dL (0.2-1.3); Blood Urea Nitrogen 13 mg/dL (9-20); Calcium 9.1 mg/dL (8.4-10.2); Carbon Dioxide 25 mmol/L (22-30); Chloride 103 mmol/L (98-107); Estimated CRCL calculation 156 ml/min; Estimated Glomerular Filt Rate > 60; Glucose 106 mg/dL (65-110); INR 1.1; Potassium 4.1 mmol/L (3.4-5.0); Prothrombin Time 14.4 Seconds (11.1-14.7); Sodium 136 mmol/L (137-145); Total Protein 7.5 g/dL (6.3-8.2)
[2025-05-08 16:13] LABS: Partial Thromboplastin Time 27.4 Seconds (22.3-36.8)
[2025-05-08 16:19] LABS: NT Pro B Type Natriuretic Pept 224 pg/mL (19.9-100)
[2025-05-08] MEDS: CLINDAMYCIN 600 MG/D5W 50 ML 600 MG/50 ML PIGGYBACK 100 MG IVPB (17:41)
[2025-05-08 17:45] VITALS: BP 154/91; PULSE 76; RESP 19; O2SAT 100
== END 2025-05-08 18:32 | disposition home or self-care (01) ==
PROVIDERS: Emergency Provider Emergency Medicine; PCP Nurse Practitioner
DX: L03.116 Cellulitis of left lower limb (principal); R22.42 Localized swelling, mass and lump, left lower limb; E78.5 Hyperlipidemia, unspecified; I10 Essential (primary) hypertension; K21.9 Gastro-esophageal reflux disease without esophagitis
CPT/HCPCS: 36415; 80053; 83880; 85025; 85610; 85730; 93971; 96365; 99284